=== PATIENT | female | born 1950 | race Caucasian/White ===

== ENCOUNTER → 2022-06-20 09:32 | Outpatient (CLI) | payer OTHER, SELFPAY ==
--- NOTE | 2022-06-20 09:35 | DI.RAD.S_ITS ---
PROCEDURE: XR HIP W PEL IF DONE BILAT 2V INDICATIONS: hip pain bilateral TECHNIQUE: AP pelvis with lateral view(s) of the right and left hip(s). COMPARISON: None. FINDINGS: Bones: No acute fractures or dislocations. Pelvic ring appears intact. No suspicious bony lesions. Severe right hip joint space loss with subchondral sclerosis and cystic change, spurring, and articular surface deformity. Severe joint space narrowing of the left hip also demonstrated. Soft tissues: The visualized bowel gas pattern is normal. No suspicious soft tissue calcifications. IMPRESSION: Severe degenerative changes of both hips, right worse than left. Dictated by: Marco Diaz M.D. on 06/20/2022 at 15:24 Approved by: Marco Diaz M.D. on 06/20/2022 at 15:29
--- NOTE | 2022-06-20 09:35 | DI.RAD.S_ITS ---
PROCEDURE: XR CHEST 2V INDICATIONS: COPD TECHNIQUE: 2 views of the chest were acquired. COMPARISON: [facility], CHEST 2 VIEW, 12/09/2012, 13:56. [facility], CHEST 1 VIEW, 09/10/2012, 5:52. FINDINGS: Lungs and pleura: The lungs appear hyperinflated, a finding that can be seen in the setting of COPD. Patchy opacity present at the right lung base and left mid lung. No pleural effusion or pneumothorax. Mediastinum: Mediastinal contours are normal. Heart size is normal. Bones and chest wall: No suspicious bony abnormalities. Soft tissues appear unremarkable. IMPRESSION: Nonspecific right basilar opacity and left mid lung opacities could represent pneumonia in the appropriate clinical setting, atelectasis is also possible. Dictated by: Marco Diaz M.D. on 06/20/2022 at 15:18 Approved by: Marco Diaz M.D. on 06/20/2022 at 15:24
[2022-06-20 10:07] LABS: Hematocrit 49.3 % (36-46); Hemoglobin 16.3 g/dL (12.0-16.0); Mean Corpuscular Hemoglobin 32.8 PG (26-34); Mean Corpuscular Volume 99.3 fL (80-100); Platelet Count 153 X10^3/uL (150-400); Red Blood Cell Count 4.96 X10^6/uL (4.0-5.2); Red Cell Distribution Width 14.3 % (11.6-14.8); White Blood Cell Count 5.4 X10^3/uL (4.5-11.0)
[2022-06-20 10:28] LABS: Alanine Aminotransferase 13 IU/L (<35); Albumin Globulin Ratio 1.2 (1.0-2.8); Alkaline Phosphatase 96 U/L (38-126); Aspartate Aminotransferase 23 IU/L (14-36); Bilirubin Total 0.3 mg/dL (0.2-1.3); Blood Urea Nitrogen 25 mg/dL (7-17); Calcium 8.7 mg/dL (8.4-10.2); Carbon Dioxide 34 mmol/L (22-32); Chloride 102 mmol/L (98-107); Cholesterol 174 mg/dL (140-199); Estimated Glomerular Filt Rate > 60 mL/min (>60); Globulin 3.3 g/dL (1.7-4.1); Glucose 98 mg/dL (80-110); HDL Cholesterol 43 mg/dL (40-60); HEMOLYSIS < 15 (0-50); LDL Cholesterol Calculated 110 mg/dL (<100); Potassium 4.5 mmol/L (3.4-5.1); Sodium 142 mmol/L (137-145); Total Protein 7.3 g/dL (6.3-8.2); Triglycerides 107 mg/dL (35-150)
[2022-06-20 11:24] LABS: TSH w/ Reflex to FT4 5.91 uIU/mL (0.47-4.68)
[2022-06-20 14:24] LABS: Free T4, Direct Thyroxine 0.99 ng/dL (0.78-2.19)
== END ==
PROVIDERS: Family Provider Internal Medicine; PCP Internal Medicine; Referring Provider Internal Medicine; Visit Provider Internal Medicine
DX: J44.9 Chronic obstructive pulmonary disease, unspecified (principal); E78.2 Mixed hyperlipidemia; M15.9 Polyosteoarthritis, unspecified
CPT/HCPCS: 36415; 71046; 73521; 80053; 80061; 84439; 84443; 85027

== ENCOUNTER → 2022-07-02 09:36 | Outpatient (CLI) | payer OTHER, SELFPAY ==
--- NOTE | 2022-07-02 08:53 | DI.DEXA.S_ITS ---
Indication: osteopenia; Referring Provider: TONY ESPARZA Study: Bone densitometry was performed. Exam Date: July 02, 2022 Accession number: [id number] Bone Density: Region BMD T-score Z-score Classification AP Spine(L1-L4) 0.959 -0.8 1.5 Normal Femoral Neck (Left) 0.595 -2.3 -0.3 Osteopenia Total Hip (Left) 0.708 -1.9 -0.2 Osteopenia Femoral Neck (Right) 0.705 -1.3 0.7 Osteopenia Total Hip (Right) 0.709 -1.9 -0.2 Osteopenia Total Hip Mean 0.709 -1.9 -0.2 Osteopenia World Health Organization criteria for BMD impression classify patients as: Normal (T-score at or above -1.0), Osteopenia (T-score between -1.0 and -2.5), or Osteoporosis (T-score at or below -2.5). 10-year Fracture Risk(1): Major Osteoporotic Fracture 15% Hip Fracture 5.8% Reported Risk Factors: [place] (), Neck BMD=0.595, BMI=27.4, smoking (1) FRAX(R) Version 3.08. Fracture probability calculated for an untreated patient. Fracture probability may be lower if the patient has received treatment. Previous Exams: -- Region Exam Age BMD T-score BMD Change BMD Change Date g/cm2 vs Baseline vs Previous -- AP Spine (L1-L4) 07/02/2022 72 0.959 -0.8 -0.016 (-1.6%)# -0.016 (-1.6%)# 01/15/2007 56 0.975 -0.7 Total Hip(Left) 07/02/2022 72 0.708 -1.9 -0.028 (-3.9%)# -0.028 (-3.9%)# 01/15/2007 56 0.737 -1.7 Total Hip(Right) 07/02/2022 72 0.709 -1.9 -0.023 (-3.2%)# -0.023 (-3.2%)# 01/15/2007 56 0.733 -1.7 -- *Denotes significance at 95% confidence level, LSC for AP Spine = 0.022 g/cm2, LSC for Total Hip = 0.027 g/cm2 # Denotes dissimilar scan types or analysis methods Impression: The patient has low bone mass, based on the Left Femoral Neck T-score. The patient has an estimated ten-year risk of hip fracture of 5.8% and an estimated ten-year risk of major fracture of 15%, based on the WHO FRAX algorithm. The patient has risk factors, including: smoking. No significant bone loss was observed. Discussion: BONE DENSITY IS LOW AT ONE OR MORE SKELETAL SITES. THE PATIENT'S BMD AND CLINICAL RISK FACTORS CONTRIBUTE TO THIS PATIENT'S INCREASED RISK OF FRACTURE. This patient's lowest T-score is low at one or more skeletal sites. It meets the World Health Organization's (WHO) criteria for ?low bone mass? (T-score between -1.0 and -2.5). The patient's 10-year risk of hip fracture as calculated by FRAX exceeds the threshold where pharmacological therapy is recommended by the National Osteoporosis Foundation (NOF). However, all treatment decisions require clinical judgment and consideration of individual patient factors, including patient preferences, comorbidities, previous drug use, risk factors not captured in the FRAX model (e.g., frailty, falls, vitamin D deficiency, increased bone turnover, interval significant decline in bone density) and possible under or overestimation of fracture risk by FRAX. The patient should follow a healthful lifestyle (good nutrition with adequate calcium and vitamin D, and appropriate weight-bearing exercise). Follow-Up: Consider a repeat BMD and Vertebral Fracture Assessment (VFA) exam in 2 years or sooner if medically necessary, to reassess this patient's status. Reported by: Heraclio CORONADO M.D. on 07/02/2022 9:01:00 AM.
== END ==
PROVIDERS: Family Provider Internal Medicine; PCP Internal Medicine; Referring Provider Internal Medicine; Visit Provider Internal Medicine
DX: Z78.0 Asymptomatic menopausal state (principal); M85.852 Other specified disorders of bone density and structure, left thigh
CPT/HCPCS: 77080

== ENCOUNTER → 2022-08-08 09:04 | Outpatient (CLI) | payer OTHER, SELFPAY ==
[2022-08-08 10:31] LABS: Add Manual Diff / Slide Review NO; Basophils Absolute Auto 100 /uL (0-100); Basophils Percent Auto 1.2 % (0-2); Eosinophils Absolute Auto 200 /uL (0-450); Eosinophils Percent Auto 2.1 % (2-4); Hematocrit 46.3 % (36-46); Hemoglobin 15.5 g/dL (12.0-16.0); Lymphocytes Absolute Auto 1100 /uL (1100-4500); Lymphocytes Percent Auto 13.9 % (25-40); Mean Corpuscular HGB Conc 33.5 % (30-36); Mean Corpuscular Hemoglobin 33.2 PG (26-34); Mean Corpuscular Volume 99.2 fL (80-100); Monocytes Absolute Auto 500 /uL (0-900); Monocytes Percent Auto 6.2 % (3-14); Neutrophils Absolute Auto 5800 /uL (1500-7000); Neutrophils Percent Auto 76.6 % (50-75); Platelet Count 173 X10^3/uL (150-400); Red Blood Cell Count 4.67 X10^6/uL (4.0-5.2); Red Cell Distribution Width 14.3 % (11.6-14.8); White Blood Cell Count 7.5 X10^3/uL (4.5-11.0)
[2022-08-08 10:34] LABS: Appearance Urine UA CLEAR; Bilirubin Urine UA NEGATIVE (NEGATIVE); Color Urine UA YELLOW; Glucose Urine UA NEGATIVE (Negative); Ketones Urine UA NEGATIVE (NEGATIVE); Leukocyte Esterase Urine UA NEGATIVE (NEGATIVE); Nitrite Urine UA NEGATIVE (Negative); Occult Blood Urine UA NEGATIVE (Negative); Protein Urine UA TRACE (Negative); Specific Gravity Urine UA >=1.030 (1.000-1.035); Urobilinogen Urine UA 0.2 E.U./dL (0.2)
[2022-08-08 10:38] LABS: pH Urine UA 5.5 (4.5-8.0)
[2022-08-08 10:41] LABS: RBC Urine None Seen (0-5/HPF); WBC Urine None Seen (0-5/HPF)
[2022-08-08 10:42] LABS: Bacteria Urine None Seen; Culture Indicated Urine Cult Not Indicated
[2022-08-08 11:20] LABS: BUN Creatinine Ratio 49.1 (6-22); Blood Urea Nitrogen 27 mg/dL (7-17); Calcium 8.9 mg/dL (8.4-10.2); Carbon Dioxide 34 mmol/L (22-32); Chloride 100 mmol/L (98-107); Estimated Glomerular Filt Rate > 60 mL/min (>60); Glucose 86 mg/dL (80-110); HEMOLYSIS < 15 (0-50); Potassium 4.1 mmol/L (3.4-5.1); Sodium 139 mmol/L (137-145)
[2022-08-09 06:10] LABS: Labcorp Hemoglobin (Hb) A1c 5.5 % (4.8-5.6)
== END ==
PROVIDERS: Family Provider Internal Medicine; PCP Internal Medicine; Referring Provider Orthopaedic Surgery; Visit Provider Orthopaedic Surgery
DX: Z01.818 Encounter for other preprocedural examination (principal); R73.9 Hyperglycemia, unspecified; Z01.812 Encounter for preprocedural laboratory examination; N39.0 Urinary tract infection, site not specified
CPT/HCPCS: 36415; 80048; 81001; 83036; 85025; 93005; 93010

== ENCOUNTER 2022-11-06 06:27 | Day surgery (SDC) | payer OTHER, SELFPAY ==
[2022-10-29 13:52] VITALS: BMI 27.7
[2022-11-06] VITALS (8 sets, daily range): BP systolic 104–148; BP diastolic 53–74; PULSE 66–96; RESP 10–18; TEMP 35.8–37.1; O2SAT 88–98; BMI 27.7
--- NOTE | 2022-11-06 | DI.RAD.S_ITS ---
PROCEDURE: XR HIP W PEL IF DONE RT 2V INDICATIONS: POST OP TECHNIQUE: AP pelvis and lateral view of the right hip acquired. COMPARISON: [facility], [facility], XR HIP W PEL IF DONE RT 2V, 11/06/2022, 9:13. FINDINGS: Bones: Patient is status post right hip arthroplasty, with hardware components in expected positions. The hip joint appears congruent. The visualized bony structures appear intact. Soft tissues: Overlying postoperative changes are noted. No suspicious soft tissue densities. IMPRESSION: Postop changes from right total hip arthroplasty with anatomic right hip alignment. Dictated by: Jose Juan Umana M.D. on 11/06/2022 at 11:35 Approved by: Jose Juan Umana M.D. on 11/06/2022 at 11:35
--- NOTE | 2022-11-06 06:00 | DI.RAD.S_ITS ---
PROCEDURE: XR HIP W PEL IF DONE RT 2V INDICATIONS: MARI TECHNIQUE: 2 view(s) of the hip acquired. COMPARISON: [facility], CR, XR HIP W PEL IF DONE RT 2V, 11/06/2022, 10:28. FINDINGS: Bones: Patient is status post right hip arthroplasty, with hardware components in expected positions. The hip joint appears congruent. The visualized bony structures appear intact. Soft tissues: Overlying postoperative changes are noted. No suspicious soft tissue densities. IMPRESSION: Expected postsurgical change for right hip arthroplasty. Dictated by: Precious Low MD, PhD on 11/06/2022 at 13:10 Approved by: Precious Low MD, PhD on 11/06/2022 at 13:11
[2022-11-06] MEDS: VANCOMYCIN 1,000 MG/200 ML PIGGYBACK 200 MG IV (06:40)
[2022-11-06] MEDS: CELECOXIB 200 MG CAPSULE PO (06:46)
[2022-11-06] MEDS: LACTATED RINGERS 1,000 ML 42 ML IV (06:46)
[2022-11-06] MEDS: ACETAMINOPHEN 325 MG TABLET 975 MG PO (06:47)
[2022-11-06] MEDS: ALBUTEROL/IPRATROPIUM 3 ML AMPUL INH (07:10)
--- NOTE | 2022-11-06 07:26 | SUR.OPER ---
Supine on padded Nancy table with bilateral legs secured in padded positioning boots and suspended in positioning spars, operative leg in traction per surgeon. Head on one pillow. Arm on non-operative side secured on padded armboard <90 degrees abduction. Arm on operative side padded and resting across chest then secured with tape over sheet. Padded perineal post in place per surgeon.
--- NOTE | 2022-11-06 07:49 | PM.PREOP ---
Pre-operative Note Interval Note History & Physical reviewed/Exam performed by Physician: Yes Changes to H&P: No
--- NOTE | 2022-11-06 07:50 | PM.OP.1 ---
Operative Date/Time/Diagnoses Date of procedure: 11/06/22 Time of procedure: 08:00 Pre-op diagnosis: right hip OA Post-op diagnosis: same Procedure & Clinicians Procedure: Right total hip arthroplasty anterior approach Same procedure as scheduled: Yes Indications: The patient has had progressively worsening right hip pain with radiographic changes consistent with arthritis. Non-operative management has failed and the patient has requested total hip replacement. The risks, benefits and alternatives to surgery were discussed with the patient prior to proceeding. Risks discussed included, but were not limited to, failure to relieve pain, leg length discrepancy, dislocation, stiffness, infection, nerve damage, deep venous thrombosis, pulmonary embolism, stroke, coma, heart attack, permanent paralysis and , as well as the potential need for eventual revision of the prosthetic. Surgeon: Niki [employer] Chief Engineer: Yanick Ashley Anesthesia Type: Spinal and Sedation Operative Notes Findings: Severe right hip osteoarthritis, soft bone, adequate stability Closure Type: primary Specimen(s): none sent Prosthetic devices, grafts, tissues, transplants, or devices: Allan and nephew polar size 3 stem, size 50 R3 cup, neutral poly liner, 32 x -3 Oxinium head, one 6.5 mm screw Estimated Blood Loss (mL): 250 Blood products transfused: none Procedure in detail: The patient was brought to the operating room. Patient was carefully positioned in the supine position. Time-out was performed and antibiotics were given. Anesthesia was induced. She was positioned in the on the table in order to allow hyperextension of the hip. The right lower extremity was prepped and draped in a standard sterile fashion. An anterior right hip incision was made 1 fingerbreadth lateral to the anterior superior iliac spine and extended distally towards the greater trochanter. Dissection was carried out through skin and subcutaneous tissues. Superficial hemostasis was achieved. The fascia over the tensor fascia gamal was defined and incised with a knife. Two Allis clamps were used to grasp the fascia. Tensor fascia gamal was retracted laterally. A gelpi retractor was placed. Dissection was carried out down along the neck. The circumflex vessels were carefully identified and cauterized with the Aqua Mantis. A PA was used throughout the procedure and was important for adequate retraction and safe implantation of the components as well as adequate hemostasis. There was good visualization of the femoral neck. A Cobra was placed superior to the neck and the gluteus fibers were carefully stripped from that superior aspect of the capsule. A 2nd retractor was placed along the inferior aspect of the neck. The rectus insertion along the capsule was partially released. A 3rd retractor that was then gently placed over the rim of the acetabulum under the rectus. Capsule was carefully incised and released from the intertrochanteric line circumferentially superior to the mid sagittal line and inferiorly to the mid sagittal line until the lesser trochanter was palpable. A tag stitch was placed both in the superior and inferior limb of the capsular insertion. There was some fasciculation of the vastus. Along the acetabulum capsule was also released up to the mid sagittal 12:00 position. A portion of the labrum was resected. A saw was used to perform an osteotomy at the level of the intertrochanteric line and the junction of the superior femoral neck leaving approximately 1 finger breath of residual inferior neck above the lesser trochanter. A 2nd cut was made along the femoral neck at the base of the head and a napkin ring of neck was removed. Corkscrew was placed in the femoral head and the head was removed without difficulty. Retractors were then repositioned around the acetabulum. Residual labrum was resected and additional osteophytes were removed. A reamer that was 4 mm below the templated size was placed by hand in the acetabulum and it was reamed to centralize the acetabulum. It was then reamed up to 2 under the templated size and fluoroscopy was brought in to confirm the position of the reaming and depth of reaming. I reamed 1 under the anticipated size. A trial cup was placed and noted that it was appropriately sized and fluoroscopy confirmed position and depth. The component was open and inserted without difficulty fluoroscopic imaging was used to confirm that the cup had been adequately seated and was well positioned. It was further stabilized with a single screw. Neutral poly liner was placed. The cup was tested and noted to be stable. Attention was then directed to the femur. The femur was gently hyperextended additional capsular release was performed as needed in order to allow adequate visualization of the proximal femur with elevation of the femur. Patient was placed in a hyperextended slightly adducted position with maximum external rotation. Box osteotome was used to check for any residual neck as well as sclerotic bone along the trochanter. [place] pepper was placed in the femur. Additional broaching was performed. Canal finder was used to determine the alignment of the canal and position. Size 1 broach was placed. The canal was then appropriately broached up to the templated size as long as there was adequate stability of the broach and serial advancement of the broach without excessive impingement. Specific attention was directed at avoiding varus attempting to direct the distal aspect of the broach more anteriorly and avoiding excessive anteversion. Trial reduction showed acceptable range of motion, good stability, no posterior impingement, adventism of leg length and appropriate lateral shuck. I also hyperflexed the hip and checked that there was no impingement anteriorly and there was good stability with flexion, adduction and internal rotation. Marcaine and Exparel were injected. The stem was placed without difficulty. Repeat trial reduction and x-ray showed acceptable overall position, length, and no evidence of the femoral fracture. Final head was placed. Wound was meticulously irrigated with normal saline. The hip was reduced and additional Exparel and Marcaine were injected. The capsule was closed with interrupted nonabsorbable sutures. The fascia of the tensor was closed with interrupted and running Vicryl. No drain was placed. Any tensor fascia gamal muscle that appeared to be contused or injured which was a minimal amount was carefully resected. Capsule around the tensor was injected with Exparel and Marcaine. The skin was closed with barbed stitches for the subcutaneous tissue and skin. We also used surgical glue. The wound was dressed sterilely. Brief Betadine soak was also used and was meticulously irrigated with normal saline. Patient was transferred to recovery room in satisfactory condition. Complications: none Post-operative Condition: stable Disposition: Acute Care Plan for aftercare: The patient will be maintained on a standard total hip replacement protocol with weight bearing as tolerated and anterior hip precautions. The patient will receive Aspirin and sequential compression devices for DVT prophylaxis. The patient will be discharged home when safe for the home environment.
[2022-11-06] MEDS: CEFAZOLIN 2 GM/100 ML PREMIX 100 ML IV ×2 (08:14→17:22)
[2022-11-06] MEDS: BUPIVACAINE 0.25% (PF) 60 ML, EPINEPHrine 0.3 MG INJ (08:41)
[2022-11-06] MEDS: BUPIVACAINE LIPOSOME 266 MG/20 ML VIAL INJ (10:10)
[2022-11-06] MEDS: ACETAMINOPHEN 325 MG TABLET 650 MG PO ×2 (12:12→17:24)
[2022-11-06] MEDS: IBUPROFEN 400 MG TABLET PO ×2 (12:12→15:08)
[2022-11-06] MEDS: LACTATED RINGERS 1,000 ML 100 ML IV (12:13)
--- NOTE | 2022-11-06 17:27 | OT.IP.EVAL ---
Current Diagnoses Unilateral primary osteoarthritis, right hip (11/06/22) Surgery Performed Operation Date: 11/06/22 07:45 Actual Procedures p RIGHT Total Hip Arthroplasty/Anterior Approach(Right) - Niki Allan MD Past Medical History (Last Updated 10/29/22 @ 14:15 by Natalia Guallpa, RN) Acne (~1964) Asthma Cataracts, bilateral (~2008) Chicken pox (~1959) COPD (chronic obstructive pulmonary disease) (~1988) Depression (~1973) Hearing loss History of colonic polyps History of COVID-19 (02/2022) Mixed hyperlipidemia Osteopenia Primary osteoarthritis involving multiple joints Tobacco use disorder Surgical History (Last Updated 10/29/22 @ 14:05 by Natalia Guallpa RN) Anesthesia History of section History of cholecystectomy (~2009) Hx of bilateral cataract extraction Occupational Therapy Inpatient Evaluation/Re-Eval M1 PT/OT-IP Prior Functional Status Start: 11/06/22 17:19 Freq: NEEDED Status: Active Protocol: Document 11/06/22 16:45 DCW (Rec: 11/06/22 17:38 DCW [id number]) Medical Review Prior Functional Status Medical History Reviewed Yes Communication WNL Mobility and Gait 4WW/SPC as needed secondary to hip pain and instability Social History Household Members family Living Arrangements House Number of Floors (Floors) One Floor Number of Stairs To Enter/Railing? 2 GENE, unilateral railing being installed by daughter Home Equipment Four Wheel Walker,Straight Cane M1 PT/OT-IP Prior Functional Status Start: 11/06/22 17:27 Freq: NEEDED Status: Active Protocol: Document 11/06/22 17:28 [facility] (Rec: 11/06/22 17:42 [facility] [id number]) Medical Review Prior Functional Status Communication Independent Mobility and Gait Pt states started to use a SPC recently and only could walk 3 minutes at [facility] with a cart before needing to sit down. Activities of Daily Living and IADL's Pt having pain with ADL needs. Social History Household Members family Living Arrangements House Number of Stairs To Enter/Railing? 2 small steps to get into the house Home Environment Standard Height Toilet Home Equipment Front Wheel Walker,Four Wheel Walker,Bedside Commode,Shower Seat with Backrest Additional Social History Comment Pt lives with her daughter who will be able to provide pt with assist for all needs. M2 OT-IP Current Condition Start: 11/06/22 17:27 Freq: Status: Active Protocol: Document 11/06/22 17:28 [facility] (Rec: 11/06/22 17:42 [facility] [id number]) Occupational Therapy Current Condition Current Condition Evaluation Date 11/06/22 Treatment Diagnosis S/p R MARI Diagnosis Onset Date 11/06/22 Post Operative Precautions Anterior Hip Precautions No Hip Extension,No Hip External Rotation M3 OT- IP Subjective and Pain Start: 11/06/22 17:27 Freq: Status: Active Protocol: Document 11/06/22 17:28 [facility] (Rec: 11/06/22 17:42 [facility] [id number]) OT- Subjective Occupational Therapy Visit Type Type Initial Evaluation Visit Start Time 17:13 Visit Stop Time 17:28 Total Visit Minutes 15 Occupational Therapy Visit Comments Patient Comments Pt in the recliner and agreed to work with OT. Pt's daughter came in at the end of the session. Patient/Caregiver Goals To go home OT Pain Assessment Pain When Pain Assessed At Rest Pain Present Pain Present Denied Pain M4 OT- IP ADL's Start: 11/06/22 17:27 Freq: Status: Active Protocol: Document 11/06/22 17:28 [facility] (Rec: 11/06/22 17:42 [facility] [id number]) OT UXE-Vlrs-Onpkgth Comments OT Self-Feeding Comments NOt at meal time OT ADL-Grooming Comments OT Grooming Comments Not performed OT ADL-Oral Care Comments Oral Care Comments Not performed. OT ADL-Dressing General Eval Lower Body Dressing Ability Maximum Assistance Comments OT Dressing Comments At this time pt will need assist for socks and shoes. Pt states to wear slip on shoes. Reminded pt not to cross her right leg over in order to silvio LB dressing clothing in order to best follow her anterior precautions. OT ADL-Toileting Comments OT Toileting Comments Pt states has already been to the toilet 3 times. Pt's daughter aware that pt will need assist. OT ADL-Bathing Comments OT Bathing Comments Pt states just wanting to sponge off at home for now. M5 OT- IP IADL's Start: 11/06/22 17:27 Freq: Status: Active Protocol: Document 11/06/22 17:28 [facility] (Rec: 11/06/22 17:42 [facility] [id number]) OT-Instrumental Activities of Daily Living Deficits IADL Deficits Identified Deficits Home Safety Awareness Awareness of Need for Assistance at Home Good Awareness Home Safety Comments Pt has supportive family to be able to assist with all her needs. Meal Preparation Meal Preparation Caregiver Provides Assist Dormitory Counselor Dormitory Counselor Caregiver Provides Assist M6 OT- IP Functional Cognition Start: 11/06/22 17:27 Freq: Status: Active Protocol: Document 11/06/22 17:28 [facility] (Rec: 11/06/22 17:42 [facility] [id number]) Cognitive Factors Limiting Selfcare Function Cognitive Ability Level of Alertness Alert Patient Orientation Name,Place,Situation Attention Span Ability Capable of Focused Attention, Capable of Sustained Attention Ability to Follow Commands Able to Follow Multi-Step Commands Safety Awareness Decreased Recall of Precautions Cognitive Comments Cognitive Assessment Comments Pt a needing cues to verbally state her precautions when moving forwards with the FWW and backwards to prevent from hyperextension of her right hip. Pt's daughter having good understanding for all pt's ADl and mobility needs. OT- Vision and Hearing OT- Hearing Assessment OT- Hearing Assessment Hearing Impaired M7 OT- IP Mobility and Balance Start: 11/06/22 17:27 Freq: Status: Active Protocol: Document 11/06/22 17:28 [facility] (Rec: 11/06/22 17:42 [facility] [id number]) OT-Transfer Assessment Comments Mobility Comments Pt just about to eat dinner, see PT note for mobility needs . OT- Balance Assessment Sitting Balance and Reactions Static Sitting Balance Ability Normal Dynamic Sitting Balance Ability Good M9 OT- IP Assessment and Plan Start: 11/06/22 17:27 Freq: Status: Active Protocol: Document 11/06/22 17:28 [facility] (Rec: 11/06/22 17:42 [facility] [id number]) OT Summary Assessment and Plan Potential Rehabilitation Potential Good Analytic Complexity at Evaluation Low Summary OT Impairments Functional Mobility,Dressing, Toileting,Bathing,Toilet Transfers,Shower Transfers Progress Towards Goals Progressing Toward Goals Assessment Summary Pt low complexity and main barrier are will now need some help with dressing, toileting and bathing needs and cues to remind for which leg goes first when moving forwards and backwards. Pt has all equipment needs at home. OT suggested pt get briefs/pads so not having to gross to the bathroom. Pt to go home with assist today. Goals Dressing Goal Independent Toileting Goal Independent Bathing Goal Independent Toilet Transfer Goal Independent Shower Transfer Goal Independent Days to Meet Goals 5 Frequency of Treatment Frequency Of Treatment Once a Day Treatment Plan OT Treatment Plan ADL Training,Functional Mobility,Patient/Family Education,Discharge Planning Discharge Recommendations OT Discharge Recommendations Home with Assistance, Outpatient PT Transportation Needs at Discharge Private Vehicle
--- NOTE | 2022-11-06 17:40 | PT.IIE ---
Current Diagnoses Unilateral primary osteoarthritis, right hip (11/06/22) Surgery Performed Operation Date: 11/06/22 07:45 Actual Procedures p RIGHT Total Hip Arthroplasty/Anterior Approach(Right) - Niki Allan MD Surgical History (Last Updated 10/29/22 @ 14:05 by Natalia Guallpa, RN) Anesthesia History of section History of cholecystectomy (~2009) Hx of bilateral cataract extraction Medical History (Last Updated 10/29/22 @ 14:15 by Natalia Guallpa RN) Acne (~1964) Asthma Cataracts, bilateral (~2008) Chicken pox (~1959) COPD (chronic obstructive pulmonary disease) (~1988) Depression (~1973) Hearing loss History of colonic polyps History of COVID-19 (02/2022) Mixed hyperlipidemia Osteopenia Primary osteoarthritis involving multiple joints Tobacco use disorder Physical Therapy Inpatient Evaluation/Re-Eval M1 PT/OT-IP Prior Functional Status Start: 11/06/22 17:19 Freq: NEEDED Status: Active Protocol: Document 11/06/22 16:45 DCW (Rec: 11/06/22 17:38 DC [id number]) Medical Review Prior Functional Status Medical History Reviewed Yes Communication WNL Mobility and Gait 4WW/SPC as needed secondary to hip pain and instability Social History Household Members family Living Arrangements House Number of Floors (Floors) One Floor Number of Stairs To Enter/Railing? 2 GENE, unilateral railing being installed by daughter Home Equipment Four Wheel Walker,Straight Cane M2 PT-IP Current Condition Start: 11/06/22 17:19 Freq: NEEDED Status: Active Protocol: Document 11/06/22 16:45 DCW (Rec: 11/06/22 17:38 DCW [id number]) Physical Therapy Current Condition Current Condition Evaluation Date 11/06/22 Treatment Diagnosis R anterior MARI Onset Date 11/06/22 M3 PT-IP Subjective Start: 11/06/22 17:19 Freq: NEEDED Status: Active Protocol: Document 11/06/22 16:45 DCW (Rec: 11/06/22 17:38 DCW [id number]) Subjective Physical Therapy Visit Type Type Initial Evaluation Visit Start Time 16:45 Visit Stop Time 17:15 Total Visit Minutes 30 Notes Pt returning from restroom to recliner upon therapist entering. Pt anxious to get home. Reports her hip feels good, admits that her IV site bothers her more than her hip. Wants to try stairs so she can get to go home. Notes that she had a prehab appointment, and forgot a lot of what they told me. Physical Therapy Visit Comments Patient Comments I put this off for so long, and I already feel so much better. I can't wait to get the next one done. Therapy Pain Assessment Pain When Pain Assessed During Weight Bearing Pain Present Pain Present Pain Reported Location right hip Intensity 1 Scale Used Numeric (0 - 10) M4 PT-IP Mobility and Gait Start: 11/06/22 17:19 Freq: NEEDED Status: Active Protocol: Document 11/06/22 16:45 DCW (Rec: 11/06/22 17:38 DC [id number]) PT-Transfer Assessment Sit to and From Stand Sit to and from Stand Standby Assistance Equipment Transfer Assistive Device Bed Rail,Front Wheeled Walker Comments Mobility Comments Verbal cues for hand placement for sit->stand Gait Assessment Gait Gait Assistance Required: Standby Assistance Distance (Feet) 150 Assistive Devices Assistive Device Gait Belt,Front Wheeled Walker Gait Deviations General Gait Pattern Antalgic,Decreased Stride Length,Decreased Feet Clearance Comments Gait Comments Pt ambulated in hallway SBA 75 ' using FWW, then performed stair trial, and then returned to room 75'. Stair Climbing Assessment Evaluation Level of Assist On Stairs Standby Assistance Devices Stair Climbing Assistive Devices Right Railing Technique/Endurance Stair Climbing Direction Ascend and Descend Stair Climbing Technique Step to Step Number of Steps Climbed 3 Query Text: Stair Climbing Set # Repetitions (reps) 2 M5 PT-IP Objective Assessments Start: 11/06/22 17:19 Freq: NEEDED Status: Active Protocol: Document 11/06/22 16:45 DCW (Rec: 11/06/22 17:38 DC [id number]) Orientation Orientation/Cognition Level of Alertness Alert Orientation Name,Birthday,Month,Date,Year, Day of Week,Place,Situation Language Function Ability No Deficits Noted Safety Awareness Understands Safety Issues Memory Description No Deficits Noted Gross Range of Motion Lower Extremity ROM Assessment Right Impaired Impairments Limited ROM due to anterior hip precautions Strength Lower Extremity Strength Assessment Right Impaired Comments Strength Comments Right hip flexion through limited ROM secondary to pain and post-op weakness, good quad contraction M6 PT-IP Treatment Start: 11/06/22 17:19 Freq: NEEDED Status: Active Protocol: Document 11/06/22 16:45 DCW (Rec: 11/06/22 17:38 DCW [id number]) Physical Therapy Treatment Exercises Exercises Ankle Pumps,Gluteal Sets,Quad Sets,Heel Slides Education Education Provided Precautions,Post-Op Packet, Safety M7 PT-IP Assessment and Plan Start: 11/06/22 17:19 Freq: NEEDED Status: Active Protocol: Document 11/06/22 16:45 DCW (Rec: 11/06/22 17:38 DCW [id number]) PT Summary Assessment and Plan Potential Rehabilitation Potential Excellent Status of Condition at Evaluation Stable Summary Impairments Pain,ROM,Strength,Bed Mobility ,Transfers,Gait Assessment Summary Pt is doing very well on day of surgery secondary to right anterior MARI. Pt able to repeat hip precautions back to therapist, and responded well to education regarding hand placement and sequencing for sit->stand, was able to perform stand->sit without any verbal cueing. Pt able to ambulate SBA /c FWW 150' in hallway, and demonstrated appropriate technique with ascending/descending stairs. Showed good retention of post- op HEP and anterior hip precautions. Pt appropriate from a PT standpoint to discharge home at this time, with planned follow-up with out-patient physical therapy. Frequency of Treatment Frequency Of Treatment Discharge Precautions Anterior Hip Precautions No Hip Extension,No Hip External Rotation Weight Bearing Status Weight Bearing Status Weight Bear as Tolerated Recommendations To Nursing Amount of Assist Needed Standby Assistance Discharge Recommendations PT Discharge Recommendations Home,Outpatient PT Transportation Needs at Discharge Private Vehicle
--- NOTE | 2022-11-06 17:58 | PC.NURSE ---
Addendum entered by Mando Lee R.N. 11/06/22 19:08: Pt escorted to car via w/c, did very well to get into the car. Original Note: Pt progressing very well, cleared by PT. Understanding training and hip precautions well. Will d/c after abx finishes. Surgical site intact.
== END 2022-11-06 18:30 | disposition home or self-care (01) ==
LOC: OR 06:29 → AC 06:29
PROVIDERS: Family Provider Internal Medicine; PCP Internal Medicine; Referring Provider Orthopaedic Surgery; Visit Provider Orthopaedic Surgery
PROC: (CPT 27130; principal; 2022-11-06 07:45)
DX: M16.11 Unilateral primary osteoarthritis, right hip (principal)
CPT/HCPCS: 27130; 73502; 76000; 97110; 97161; 97165; C1776; A9270; C9290; J0171; J0690; J2250; J2405; J2704

== ENCOUNTER 2024-01-19 10:10 | Inpatient (IN) | payer OTHER, SELFPAY ==
[2022-11-06 06:42] VITALS: BMI 27.7
[2024-01-19 10:21] VITALS: BP 137/68; PULSE 91; RESP 24; TEMP 36.9; O2SAT 83; BMI 29.2
[2024-01-19 10:24] VITALS: PULSE 86; RESP 36; O2SAT 92
--- NOTE | 2024-01-19 10:25 | DI.RAD.S_ITS ---
PROCEDURE: XR CHEST 1V INDICATIONS: Shortness of breath TECHNIQUE: One view of the chest was acquired. COMPARISON: [facility], CR, XR CHEST 2V, 06/20/2022, 9:34. FINDINGS: Surgical changes and devices: None. Lungs and pleura: Focal dense opacity can be seen at the left lung base. No large pneumothorax is seen. Generalized interstitial prominence can be seen. Mediastinum: The cardiac contours are obscured, yet are believed to be moderately enlarged. Bones and chest wall: No suspicious bony lesions. Age-appropriate bony degenerative changes are seen. Overlying soft tissues appear unremarkable. IMPRESSION: Opacity at the left lung base, which is attributed to a moderately sized left-sided pleural effusion. Likely overlying atelectasis can be seen. There is believed to be cardiomegaly with interstitial prominence. Please consider CHF. Dictated by: Андрей Singletary M.D. on 01/19/2024 at 9:54 Approved by: Андрей Singletary M.D. on 01/19/2024 at 9:55
--- NOTE | 2024-01-19 10:27 | EKG_ITS ---
[id number] [address] Test Date: 2024-01-19 Pat Name: Amelia Mason Department: Room: Gender: Female Nursing Home Aide: MOLLY : 1950 Requested By: Order Number: [id number] Reading MD: Thomas Goodwin MD Measurements Intervals [place] Rate: 86 P: 13 SD: 156 QRS: -66 QRSD: 80 T: -27 QT: 354 QTc: 423 Interpretive Statements Normal sinus rhythm Low voltage QRS Left anterior fascicular block Cannot rule out Inferior infarct (masked by fascicular block?) , age undetermined Cannot rule out Anterior infarct , age undetermined ST & T wave abnormality, consider lateral ischemia Electronically Signed On 01-20-2024 7:54:02 PDT by Thomas Goodwin MD
--- NOTE | 2024-01-19 10:27 | ED.SOB ---
HPI - SOB/Dyspnea General Chief Complaint: Shortness of Breath/Dyspnea Stated Complaint: SOB and swollen ankles Time Seen by Provider: 01/19/24 10:17 Source: patient, RN notes reviewed and old records reviewed Mode of arrival: Family Vehicle Limitations: no limitations History of Present Illness HPI Narrative: 73-year-old female history of COPD, dyslipidemia who presents with complaint of increasing dyspnea for the past several weeks. Patient notes that increasing dyspnea with exertion, she denies any chest pain or pressure she was noted that is very difficult to get activities done. She states no orthopnea, she states no cough cold or congestion. No fevers or chills. Patient has not had any nausea or vomiting no issues with bowel movements or urination. No black or bloody stools. She does note some swelling in her ankles that is new over the past week. She has been diagnosed with COPD in the past she has not inhaler that she uses occasionally but not regularly, she has been prescribed medications for dyslipidemia and aspirin but does not take them regularly. Patient states she has a history of hip repair over a year ago, quit smoking tobacco about a week ago. Denies any alcohol or recreational drugs. Was referred for pulmonary rehab but has not started it. Dr. Moore is her primary care physician. She lives with her daughter who notes that she has had increasing work of breathing over the past week or 2 even at although patient does not appreciate any. Patient also notes has not been told her O2 is low in the past but last visit where it was checked was July of 2023. Related Data Home oxygen amount: none Home Medications Medication Instructions Recorded Confirmed aspirin 325 mg tablet 325 mg PO Q4-6H PRN pain 09/12/22 07/30/23 ibuprofen 200 mg capsule 400 mg PO Q4H PRN Pain 10/29/22 07/30/23 Previous Rx's Medication Instructions Recorded albuterol sulfate 90 mcg/actuation 2 puff inhalation Q6H PRN 06/14/22 aerosol inhaler shortness of breath or wheezing #8.5 grams rosuvastatin 10 mg tablet 10 mg PO DAILY #90 tabs 07/30/23 Allergies Allergy/AdvReac Type Severity Reaction Status Date / Time nickel [NICKEL] Allergy Severe Rash Verified 07/30/23 07:56 Review of Systems Review of Systems ROS Unobtainable: All systems reviewed & are unremarkable except as noted in HPI and below Patient History Medical History History of COVID-19 (02/2022) Osteopenia Hearing loss Acne (~1964) Asthma Depression (~1973) Chicken pox (~1959) Cataracts, bilateral (~2008) Primary osteoarthritis involving multiple joints History of colonic polyps Tobacco use disorder COPD (chronic obstructive pulmonary disease) (~1988) Mixed hyperlipidemia Surgical History Hx of bilateral cataract extraction Anesthesia History of cholecystectomy (~2009) History of section Family History Father History of heart disease Mother History of heart disease Sister Overdose Grandfather History of heart disease Grandmother Alzheimer's disease Social History household members: family Smoking Status: Current some day smoker alcohol intake: former Smoking Status: Current some day smoker Substance Use Type: other Exam Narrative Exam Narrative: GENERAL: Alert and oriented x three, elderly female in mild distress HEENT: Head normocephalic, atraumatic, EOMI, pupils reactive, face symmetric, moist mucous membranes NECK: Supple, full range of motion CARDIOVASCULAR: Regular rate and rhythm without murmurs, rubs or gallops. No JVD. Patient has 2+ pitting edema bilateral lower extremities. RESPIRATORY: Breath sounds equal bilaterally, no wheezes, no rhonchi. Patient does have some crackles at bases. Patient does have some tachypnea but no other significant work of breathing. She can talk in full sentences but has been placed on O2 which she is finding it very helpful. ABDOMEN: Soft, nontender. Normoactive bowel sounds all 4 quadrants. No guarding or rebound, rigidity, no mass : No CVA tenderness EXTREMITIES: Normal range of motion, no clubbing. 2+ pulses bilateral lower extremities. Neurovascularly intact NEUROLOGICAL: Cranial nerves II through XII grossly intact. Moving all extremities SKIN: Warm, dry, no petechiae, no rashes or lesions. Initial Vital Signs Initial Vital Signs: Vital Signs Temperature 98.4 F 01/19/24 10:21 Pulse Rate 91 H 01/19/24 10:21 Respiratory Rate 24 01/19/24 10:21 Blood Pressure 137/68 01/19/24 10:21 Pulse Oximetry 83 L 01/19/24 10:21 Oxygen Delivery Method Room Air 01/19/24 10:21 Course Orders Ordered: ED Orders 01/19/24 10:20 Complete Blood Count AUTO DIFF Stat Comprehensive Metabolic Panel Stat Lactate (Lactic Acid) Stat NT-proBNP (BNP-Adult 18+) Stat Prothrombin Time INR Stat Troponin I Stat 01/19/24 10:25 XR chest 1V Stat EKG-12 Lead Stat Measure peak expiratory flow ONCE RT Consult Eval and Treat NOW 01/19/24 11:19 Urine Culture Stat Urine Microscopic Stat Acetaminophen (Acetaminophen 325 Mg Tablet) 650 mg PO Q6H PRN PRN Reason: Fever/Mild Pain (1-3) Albuterol/Ipratropium (Albuterol/Ipratropium 3 Ml Ampul) 3 ml INH Q1H PRN PRN Reason: Shortness Of Breath Last Admin: 01/19/24 10:37 Dose: 3 ml Documented By: SAT Enoxaparin Sodium (Enoxaparin 40 Mg/0.4 Ml Syringe) 40 mg SUBCUT DAILY NILAM Naloxone HCl (Naloxone 0.4 Mg/Ml Vial) 0.2 mg IV Q2MIN PRN PRN Reason: Opiate Reversal Discontinued Medications Furosemide (Furosemide 40 Mg/4 Ml Vial) 40 mg IV NOW ONE Stop: 01/19/24 10:47 Last Admin: 01/19/24 10:54 Dose: 40 mg Documented By: RB Vital Signs Vital signs: Vital Signs - 8 hr 01/19/24 10:21 01/19/24 10:24 01/19/24 10:46 Temperature 98.4 F Pulse Rate 91 H 86 86 Respiratory Rate 24 36 H Blood Pressure 137/68 Pulse Oximetry 83 L 92 94 Oxygen Delivery Method Room Air Nasal Cannula Nasal Cannula Oxygen Flow Rate 2 1.5 MDM - SOB/Dyspnea Lab Data 01/19/24 10:20 01/19/24 10:20 Labs: Lab Results 01/19/24 01/19/24 Range/Units 10:20 11:19 WBC 9.9 (4.5-11.0) X10^3/uL RBC 4.69 (4.0-5.2) X10^6/uL Hgb 14.6 (12.0-16.0) g/dL Hct 47.0 H (36-46) % MCV 100.2 H (80-100) fL MCH 31.2 (26-34) PG MCHC 31.1 (30-36) % RDW 16.3 H (11.6-14.8) % Plt Count 208 (150-400) X10^3/uL Neut % (Auto) 81.6 H (50-75) % Lymph % (Auto) 8.2 L (25-40) % [place] % (Auto) 8.7 (3-14) % Eos % (Auto) 0.9 L (2-4) % Baso % (Auto) 0.6 (0-2) % Neut # (Auto) 8100 H (3132-1668) /uL Lymph # (Auto) 800 L (9685-2667) /uL [place] # (Auto) 900 (0-900) /uL Eos # (Auto) 100 (0-450) /uL Baso # (Auto) 100 (0-100) /uL PT 11.8 (9.4-12.5) SECONDS INR 1.0 (0.9-1.3) Sodium 138 (137-145) mmol/L Potassium 4.0 (3.4-5.1) mmol/L Chloride 95 L (98-107) mmol/L Carbon Dioxide 36 H (22-32) mmol/L BUN 17 (7-17) mg/dL Creatinine 0.61 (0.52-1.04) mg/dL Estimated GFR > 60 (>60) mL/min BUN/Creatinine Ratio 27.9 H (6-22) Glucose 102 (80-110) mg/dL Lactate 1.9 (0.7-2.1) mmol/L Calcium 8.4 (8.4-10.2) mg/dL Total Bilirubin 0.4 (0.2-1.3) mg/dL AST 24 (14-36) IU/L ALT 17 (<35) IU/L Alkaline Phosphatase 95 (38-126) U/L Troponin I 0.012 (0.01-0.034) ng/mL NT-Pro-B Natriuret Pep 5280 H (<125) pg/mL Total Protein 6.5 (6.3-8.2) g/dL Albumin 3.6 (3.5-5.0) g/dL Globulin 2.9 (1.7-4.1) g/dL Albumin/Globulin Ratio 1.2 (1.0-2.8) Urine RBC None seen (0-5/HPF) Urine WBC 1-5/hpf (0-5/HPF) Ur Squamous Epith Cells 0-1 /hpf (0-5/HPF) Amorphous Sediment 1+ Urine Bacteria Moderate (10-30) H (None) Urine Mucus 1+ H (Negative) Ur Culture Indicated? Specimen cultured Vol Urine Centrifuged 10ml (spun) Urine Dip Bedside Urine Glucose Negative Bedside Urine Bilirubin - Negative Bedside Urine Ketone - Negative Urine Specific [place] 1.010 Bedside Urine Occult Blood - Negative Bedside Urine pH 6.0 Bedside Urine Protein - Negative Bedside Urine Urobilinogen - Negative Bedside Urine Nitrite - Negative Bedside Urine Leukocytes +/- 15 Esterase Imaging Data Chest x-ray: Radiologist's Impression: Amelia Mason??73??F??1950 ? Allergy/Adv: nickel Close Chest X-Ray (Signed) HayderАндрей - 01/19/24 Hip X-Ray (Signed) Precious Low - 11/06/22 Hip X-Ray (Signed) Jose Juan Umana - 11/06/22 Bone Densitometry (Signed) Marco Diaz - 07/02/22 Hip X-Ray (Signed) Marco Diaz - 06/20/22 Chest X-Ray (Signed) Marco Diaz - 06/20/22 Launch?[place] [address] XRay Report Signed Patient: Amelia Mason MR#: [id number] : 1950 Acct:[id number] Age/Sex: 73 / F Date of Service: 01/19/24 Loc: ED Accession Number: [id number] Procedure: XR chest 1V Ordering Provider: Melani Kruse D.O. PROCEDURE: XR CHEST 1V INDICATIONS: Shortness of breath TECHNIQUE: One view of the chest was acquired. COMPARISON: [facility], , XR CHEST 2V, 06/20/2022, 9:34. FINDINGS: Surgical changes and devices: None. Lungs and pleura: Focal dense opacity can be seen at the left lung base. No large pneumothorax is seen. Generalized interstitial prominence can be seen. Mediastinum: The cardiac contours are obscured, yet are believed to be moderately enlarged. Bones and chest wall: No suspicious bony lesions. Age-appropriate bony degenerative changes are seen. Overlying soft tissues appear unremarkable. IMPRESSION: Opacity at the left lung base, which is attributed to a moderately sized left-sided pleural effusion. Likely overlying atelectasis can be seen. There is believed to be cardiomegaly with interstitial prominence. Please consider CHF. Dictated by: Андрей Singletary M.D. on 01/19/2024 at 9:54 Approved by: Андрей Singletary M.D. on 01/19/2024 at 9:55 ECG Data Attestation: I personally reviewed and interpreted this ECG as follows: Prior ECG tracings: available for review Interpretation: Sinus rhythm rate 86 CT 156 QRS 80 QTC 423, nonspecific change. Patient has prior from 08/08/2022 which appears similar. MDM Narrative Medical decision making narrative: This is a 73-year-old female with progressive shortness of breath, bilateral lower extremity edema crackles on exam. Patient has known COPD but suspect she also has combination of this was CHF exacerbation. Patient is hypoxic at 83% on room air, heart rate was 90s, afebrile some mild tachypnea. Patient was placed on 2 L nasal cannula improved into the 90s O2 and feels significantly improved. Labs show white count 9.9 hemoglobin 14.6 hematocrit of 47 platelets of 208. INR 1. CMP shows sodium 138 potassium of 4 chloride 95 CO2 of 36 BUN 17 creatinine 0.61 glucose of 102 lactate 1.9 LFTs are negative troponins less than 0.012 with a BNP of 5280. EKG shows sinus rhythm with nonspecific change does not appear fairly similar to prior from July of 2022 Chest x-ray, opacity of the left lung base attributed moderately sized left side and pleural effusion likely overlying active seen. Believed to be cardiomegaly with interstitial prominence please consider CHF. Patient placed on 2 L nasal cannula, patient was also given Lasix 40 mg IV. Spoke with Dr. Moore, hospitalist accepts for inpatient hospitalization. saw patient in the department. Discharge Plan Departure Patient Disposition: Admitted As Inpatient Clinical Impression: COPD (chronic obstructive pulmonary disease), Acute exacerbation of CHF (congestive heart failure) Admit Date/Time: 01/19/24 12:10 Admit Provider: Navdeep Moore V
[2024-01-19 10:31] LABS: Add Manual Diff / Slide Review NO; Basophils Absolute Auto 100 /uL (0-100); Basophils Percent Auto 0.6 % (0-2); Eosinophils Absolute Auto 100 /uL (0-450); Eosinophils Percent Auto 0.9 % (2-4); Hemoglobin 14.6 g/dL (12.0-16.0); Lymphocytes Absolute Auto 800 /uL (1100-4500); Lymphocytes Percent Auto 8.2 % (25-40); Mean Corpuscular HGB Conc 31.1 % (30-36); Mean Corpuscular Hemoglobin 31.2 PG (26-34); Mean Corpuscular Volume 100.2 fL (80-100); Monocytes Absolute Auto 900 /uL (0-900); Monocytes Percent Auto 8.7 % (3-14); Neutrophils Absolute Auto 8100 /uL (1500-7000); Neutrophils Percent Auto 81.6 % (50-75); Platelet Count 208 X10^3/uL (150-400); Red Blood Cell Count 4.69 X10^6/uL (4.0-5.2); Red Cell Distribution Width 16.3 % (11.6-14.8); White Blood Cell Count 9.9 X10^3/uL (4.5-11.0)
[2024-01-19] MEDS: ALBUTEROL/IPRATROPIUM 3 ML AMPUL INH (10:37)
[2024-01-19 10:39] LABS: Prothrombin Time 11.8 SECONDS (9.4-12.5)
[2024-01-19 10:42] LABS: Lactate (Lactic Acid) 1.9 mmol/L (0.7-2.1)
[2024-01-19 10:43] LABS: Alanine Aminotransferase 17 IU/L (<35); Albumin 3.6 g/dL (3.5-5.0); Albumin Globulin Ratio 1.2 (1.0-2.8); Alkaline Phosphatase 95 U/L (38-126); Aspartate Aminotransferase 24 IU/L (14-36); BUN Creatinine Ratio 27.9 (6-22); Bilirubin Total 0.4 mg/dL (0.2-1.3); Blood Urea Nitrogen 17 mg/dL (7-17); Calcium 8.4 mg/dL (8.4-10.2); Chloride 95 mmol/L (98-107); Estimated Glomerular Filt Rate > 60 mL/min (>60); Globulin 2.9 g/dL (1.7-4.1); Glucose 102 mg/dL (80-110); Sodium 138 mmol/L (137-145); Total Protein 6.5 g/dL (6.3-8.2)
[2024-01-19 10:46] VITALS: PULSE 86; O2SAT 94
[2024-01-19 10:50] LABS: Carbon Dioxide 36 mmol/L (22-32); HEMOLYSIS < 15 (0-50)
[2024-01-19 10:53] LABS: NT-proBNP (BNP-Adult 18+) 5280 pg/mL (<125)
[2024-01-19] MEDS: FUROSEMIDE 40 MG/4 ML VIAL IV (10:54)
[2024-01-19 10:55] LABS: Troponin I 0.012 ng/mL (0.01-0.034)
[2024-01-19 11:54] LABS: Amorphous Sediment Urine 1+; Bacteria Urine Moderate (10-30); Culture Indicated Urine Specimen Cultured; Mucus Urine 1+ (Negative); RBC Urine None Seen (0-5/HPF); Squamous Epithelial Cell Urine 0-1 /HPF (0-5/HPF); Urine Volume 10mL (spun); WBC Urine 1-5/HPF (0-5/HPF)
--- NOTE | 2024-01-19 12:15 | DI.ECHO.S_ITS ---
[facility] +---------+ [facility] : : [address] : : [place] : : [address] : : Phone: [phone] Echocardiogram Report + + :Name: PAUL KELLY Study Date: 01/20/2024 Height: 62 in : :Hospital ReadingLocation: Weight: 160 lb : : Gender: Female BSA: 1.7 m2 : :: 1950 Age: 73 yrs BP: 123/71 mmHg: :Reason For Study: CONGESTIVE HEART FAILURE : :Ordering Physician: ISAIAS, : :TONY Performed By: Farideh Pritchett : :Referring: TONY ESPARZA : + + Interpretation Summary Normal left ventricle size with ejection fraction 60-65%. The right ventricle is mild to moderately dilated. Right ventricular systolic function is mildly reduced. The aortic valve is mildly calcified. Mild aortic regurgitation. The ascending aorta is mildly enlarged. Mild to moderate tricuspid regurgitation. The right ventricular systolic pressure is estimated to be at least 45 mmHg based on an estimated right atrial pressure of 3 mm Hg. Procedure: A two-dimensional transthoracic echocardiogram with color flow and Doppler was performed. The study quality was technically adequate. There is no prior echocardiogram noted for this patient. The heart rate ranged between 82-95 bpm during the study. Left Ventricle: The left ventricle is normal in size and wall thickness. The ejection fraction is estimated to be 60-65%. There are no focal wall motion abnormalities. Diastolic function could not be accurately assessed due to confounding valvular disease. Right Ventricle: The right ventricle is mild to moderately dilated. Right ventricular systolic function is mildly reduced. Atria: The left atrial size is normal. The right atrium is borderline dilated. There is no Doppler evidence for an interatrial shunt. Mitral Valve: The mitral valve leaflets appear mildly thickened, but open well. The mitral valve chordae are thickened and/or calcified. There is trace mitral regurgitation. Aortic Valve: The aortic valve is mildly calcified. The aortic valve is trileaflet. The aortic valve opens well. There is no aortic valve stenosis. There is mild aortic regurgitation. Tricuspid Valve: The tricuspid valve is normal in structure and function. There is mild to moderate tricuspid regurgitation. The right ventricular systolic pressure is estimated to be at least 45 mmHg based on an estimated right atrial pressure of 3 mm Hg. Pulmonic Valve: The pulmonic valve leaflets are thin and pliable; valve motion is normal. There is trace pulmonic regurgitation. Great Vessels: The aortic root is normal size. The ascending aorta is mildly enlarged. The IVC is of normal diameter and collapses greater than 50% with a sniff. This suggests a low right atrial pressure of 3 mm Hg. Pericardium/ Pleura There is no pericardial effusion. There is a moderate left-sided pleural effusion. MMode/2D Measurements & Calculations LVIDd: 4.0 cm LVOT diam: 2.0 cm LVIDs: 2.7 cm Ao root diam: 3.3 cm FS: 31.3 % asc Aorta Diam: 4.2 cm IVSd: 0.97 cm LVPWd: 0.91 cm LV denis. diameter/BSA (cm/m^2): 2.3 LV sys. diameter/BSA (cm/m^2): 1.6 LA A2 area: 19.3 cm2 RA long axis: 5.6 cm LA A4 area: 15.2 cm2 RA area: 17.6 cm2 LA length (vol): 5.1 cm RA vol: 47.5 ml LA vol: 48.9 ml RA : 27.3 ml/m2 LA vol index: 28.1 ml/m2 IVC diam: 1.1 cm RVD1 (basal): 4.3 cm RVD2 (mid): 3.9 cm TAPSE: 2.0 cm Doppler Measurements & Calculations Ao V2 max: 147.4 cm/sec LVOT Max Adonis: 105.7 cm/sec Ao V2 mean: 105.7 cm/sec LV V1 max P.5 mmHg Ao max P.7 mmHg LV V1 VTI: 16.9 cm Ao mean P.9 mmHg MILAGROS(I,D): 2.1 cm2 Ao V2 VTI: 25.0 cm MILAGROS(V,D): 2.2 cm2 sev ratio: 0.68 MILAGROS indexed to BSA (cm^2/m^2): 1.2 AI P1/2t: 440.2 msec AI dec slope: 269.8 cm/sec2 MV E max adonis: 68.7 cm/sec TR max adonis: 324.8 cm/sec MV A max adonis: 105.6 cm/sec TR max P.2 mmHg MV E/A: 0.65 PA V2 max: 74.5 cm/sec Med Peak E' Adonis: 10.1 cm/sec PA V2 mean: 49.9 cm/sec E/E' med: 6.8 PA mean P.1 mmHg Lat Peak E' Adonis: 5.6 cm/sec PA pr(Accel): 48.2 mmHg E/E' lat: 12.3 E/e' average: 9.5 MV dec time: 0.18 sec SV(LVOT): 52.4 ml Electronically signed by: Megan vargas Emmett Physician:01/20/2024 03:10 PM
--- NOTE | 2024-01-19 12:16 | PM.HP.1 ---
History of Present Illness History of Present Illness Date Patient Seen: 01/19/24 Time Patient Seen: 12:00 Date of Onset of Symptoms: 01/19/24 Chief complaint: SOB and swollen ankles PFSH Medical History History of COVID-19 (02/2022) Osteopenia Hearing loss Acne (~1964) Asthma Depression (~1973) Chicken pox (~1959) Cataracts, bilateral (~2008) Primary osteoarthritis involving multiple joints History of colonic polyps Tobacco use disorder COPD (chronic obstructive pulmonary disease) (~1988) Mixed hyperlipidemia Surgical History Hx of bilateral cataract extraction Anesthesia History of cholecystectomy (~2009) History of section Family History Father History of heart disease Mother History of heart disease Sister Overdose Grandfather History of heart disease Grandmother Alzheimer's disease Social History household members: family Smoking Status: Current some day smoker alcohol intake: former Meds Home Medications and Allergies Home Medications Medication Instructions Recorded Confirmed Type albuterol sulfate 90 mcg/actuation 2 puff inhalation Q6H PRN 06/14/22 07/30/23 Rx aerosol inhaler shortness of breath or wheezing #8.5 grams aspirin 325 mg tablet 325 mg PO Q4-6H PRN pain 09/12/22 07/30/23 History ibuprofen 200 mg capsule 400 mg PO Q4H PRN Pain 10/29/22 07/30/23 History rosuvastatin 10 mg tablet 10 mg PO DAILY #90 tabs 07/30/23 07/30/23 Rx Allergies Allergy/AdvReac Type Severity Reaction Status Date / Time nickel [NICKEL] Allergy Severe Rash Verified 07/30/23 07:56 Review of Systems Review of Systems ROS: Yes All systems reviewed with the patient and are negative except as otherwise documented Exam Vital Signs (past 8 hours): - 01/19/24 10:21 01/19/24 10:24 01/19/24 10:46 Temperature 98.4 F Pulse Rate 91 H 86 86 Respiratory Rate 24 36 H Blood Pressure 137/68 Pulse Oximetry 83 L 92 94 Oxygen Delivery Method Room Air Nasal Cannula Nasal Cannula Oxygen Flow Rate 2 1.5 Oxygen Delivery Method Nasal Cannula Oxygen Flow Rate 1.5 Narrative Exam Narrative: GENERAL: This is a well-nourished, well-developed patient, in moderate respiratory distress, sitting up in bed in tripod posture HEAD: Atraumatic. Normocephalic. No temporal or scalp tenderness. EYES: Pupils equal round and reactive. Extraocular motions intact. No scleral icterus. No injection or drainage. ENT: Mucous membranes pink and moist. NECK: Trachea midline. JVD present, no bruits or lymphadenopathy. Supple, nontender, no meningeal signs. CARDIOVASCULAR: Regular rate and rhythm with grade 2/6 NOREEN along LSB. RESPIRATORY: Absent breath sounds left lower 1/3, with large pleural effusion on bedside ultrasound; coarse right basilar crackles, diminished breath sounds throughout. GASTROINTESTINAL: Abdomen soft, non-tender, nondistended. EXTREMITIES: 2-3+ edema. BACK: Nontender without deformity or crepitance. No flank tenderness. NEUROLOGIC: Alert, oriented, speech fluent, full upper and lower motor strength, no focal deficits evident. DERMATOLOGIC: No rashes or skin lesions. Objective ECG Impression: Normal sinus rhythm at 86bpm Low voltage QRS Left anterior fascicular block Cannot rule out Inferior infarct (masked by fascicular block?) versus artifact, age undetermined Cannot rule out Anterior infarct , age undetermined ST & T wave abnormality, consider lateral ischemia versus artifact Imaging Chest x-ray: Radiologist's impression: Opacity at the left lung base, which is attributed to a moderately sized left-sided pleural effusion. Likely overlying atelectasis can be seen. There is believed to be cardiomegaly with interstitial prominence. Please consider CHF. Labs 01/19/24 10:20 01/19/24 10:20 Labs: Laboratory Results - last 24 hr 01/19/24 01/19/24 10:20 11:19 WBC 9.9 RBC 4.69 Hgb 14.6 Hct 47.0 H MCV 100.2 H MCH 31.2 MCHC 31.1 RDW 16.3 H Plt Count 208 Neut % (Auto) 81.6 H Lymph % (Auto) 8.2 L [place] % (Auto) 8.7 Eos % (Auto) 0.9 L Baso % (Auto) 0.6 Neut # (Auto) 8100 H Lymph # (Auto) 800 L [place] # (Auto) 900 Eos # (Auto) 100 Baso # (Auto) 100 PT 11.8 INR 1.0 Sodium 138 Potassium 4.0 Chloride 95 L Carbon Dioxide 36 H BUN 17 Creatinine 0.61 Estimated GFR > 60 BUN/Creatinine Ratio 27.9 H Glucose 102 Lactate 1.9 Calcium 8.4 Total Bilirubin 0.4 AST 24 ALT 17 Alkaline Phosphatase 95 Troponin I 0.012 NT-Pro-B Natriuret Pep 5280 H Total Protein 6.5 Albumin 3.6 Globulin 2.9 Albumin/Globulin Ratio 1.2 Urine RBC None seen Urine WBC 1-5/hpf Ur Squamous Epith Cells 0-1 /hpf Amorphous Sediment 1+ Urine Bacteria Moderate (10-30) H Urine Mucus 1+ H Ur Culture Indicated? Specimen cultured Vol Urine Centrifuged 10ml (spun) Assessment & Plan Assessment & Plan narrative: 1. Acute congestive heart failure. Presumed diastolic. Rule out systolic dysfunction and significant valvular disease. Admit to inpatient, treat with IV furosemide 80 mg every 8 hours, monitor electrolytes, obtain echocardiogram, and consider ischemic workup as indicated. 2. Chronic obstructive pulmonary disease. appears stable at baseline. Continue routine medication. 3. Acute hypoxemic respiratory failure due to 1. And contributing 2. Treatment supplemental oxygen and monitor. 4. Hyperlipidemia. Continue routine medication. She admits noncompliance. 5. History of tobacco use. She quit 1 week ago. Cessation encouraged. 6. DVT prophylaxis. Low-dose Lovenox. 7. Code status: Full code. She states she would not wish life support measures in the event of medical futility. Plan: -inpatient admission -furosemide 80 mg IV every 8 hours -supplemental oxygen -resume routine home medications, compliance encouraged -tobacco cessation congratulated and encouraged -echocardiogram -monitor electrolytes the patient will require at least 2 midnights of inpatient level care. PROFEE Charge Codes Initial inpatient/observation care: [id number]
[2024-01-19 12:25] VITALS: BP 117/61; PULSE 86; TEMP 36.6; O2SAT 92
--- NOTE | 2024-01-19 13:44 | PT-IP ANOTE ---
PT consult received. Pt adm today d/t SOB and B ankle edema. Per nsg, pt to get ready to have a lasix drip. Will initiate PT evaluation next date.
[2024-01-19] MEDS: FUROSEMIDE 80 MG in SODIUM CHLORIDE 0.9% 50 ML 116 MG IV ×2 (13:51→20:50)
[2024-01-19] MEDS: ENOXAPARIN 40 MG/0.4 ML SYRINGE SUBCUT (13:53)
[2024-01-19 13:54] VITALS: BMI 29.2
[2024-01-19 16:00] VITALS: BP 129/67; PULSE 79; RESP 18; TEMP 36.5; O2SAT 93
[2024-01-19 20:00] VITALS: BP 105/52; PULSE 89; RESP 19; TEMP 36.2; O2SAT 92
[2024-01-20] VITALS (23 sets, daily range): BP systolic 97–143; BP diastolic 53–71; PULSE 77–92; RESP 15–39; TEMP 31–36.4; O2SAT 87–97
[2024-01-20] MEDS: ALBUTEROL/IPRATROPIUM 3 ML AMPUL INH (03:39)
[2024-01-20] MEDS: FUROSEMIDE 80 MG in SODIUM CHLORIDE 0.9% 50 ML 116 MG IV ×3 (04:25→20:20)
[2024-01-20 04:44] LABS: Add Manual Diff / Slide Review NO; Basophils Absolute Auto 100 /uL (0-100); Basophils Percent Auto 0.6 % (0-2); Eosinophils Absolute Auto 100 /uL (0-450); Eosinophils Percent Auto 0.8 % (2-4); Hemoglobin 15.4 g/dL (12.0-16.0); Lymphocytes Absolute Auto 1000 /uL (1100-4500); Lymphocytes Percent Auto 10.8 % (25-40); Mean Corpuscular HGB Conc 31.5 % (30-36); Mean Corpuscular Hemoglobin 31.4 PG (26-34); Mean Corpuscular Volume 99.9 fL (80-100); Monocytes Absolute Auto 700 /uL (0-900); Monocytes Percent Auto 7.7 % (3-14); Neutrophils Absolute Auto 7000 /uL (1500-7000); Neutrophils Percent Auto 80.1 % (50-75); Platelet Count 196 X10^3/uL (150-400); Red Blood Cell Count 4.91 X10^6/uL (4.0-5.2); Red Cell Distribution Width 16.1 % (11.6-14.8); White Blood Cell Count 8.8 X10^3/uL (4.5-11.0)
[2024-01-20 05:39] LABS: BUN Creatinine Ratio 24.1 (6-22); Blood Urea Nitrogen 19 mg/dL (7-17); Calcium 8.2 mg/dL (8.4-10.2); Chloride 85 mmol/L (98-107); Estimated Glomerular Filt Rate > 60 mL/min (>60); Glucose 88 mg/dL (80-110); HEMOLYSIS < 15 (0-50); Potassium 3.9 mmol/L (3.4-5.1); Sodium 137 mmol/L (137-145)
[2024-01-20 05:50] LABS: Carbon Dioxide 49 mmol/L (22-32)
--- NOTE | 2024-01-20 06:44 | PC.NURSE ---
Good response to IV lasix. Very impulsive but fairly steady on feet. Bed alarm on for safety. 2-5L NC overnight to keep sat's >90% Intermittent tremor in BUE Pt oriented but occasionally seems forgetful or delayed in word finding
--- NOTE | 2024-01-20 08:27 | PM.PN.1 ---
Subjective Subjective Interval history: Summary: 73-year-old woman and primary care of Dr. Navdeep Moore reports 2 weeks of progressive shortness of breath. She has had progressive lower extremity edema and has had to sit up in bed due to shortness of breath. she has been taking her regular inhalers for chronic COPD but states she has been noncompliant on her routine medications otherwise. There are no recent sick contacts, she denies chest pain, hemoptysis, nausea, vomiting, abdominal pain, melena, and hematochezia, or recent infectious symptoms. In the emergency department she was hypoxic with oxygen saturation of 83% on room air. She is administered IV furosemide and supplemental oxygen and reports feeling better. She is seen at bedside with her daughter Yesy. S: She was having significant diuresis, and improving she had significant edema of the feet and ankles, but this is better. Her breathing does feel better. No chest pain. Exam Vital Signs (past 8 hours): - 01/20/24 01:47 01/20/24 03:33 01/20/24 04:00 Temperature 96.9 F L Pulse Rate 83 Respiratory Rate 21 Blood Pressure 123/71 Pulse Oximetry 90 L 93 Oxygen Delivery Method Nasal Cannula Oxygen Flow Rate 5 2 Fraction of Inspired Oxygen 01/20/24 04:41 01/20/24 07:32 Temperature Pulse Rate 86 Respiratory Rate Blood Pressure Pulse Oximetry 94 95 Oxygen Delivery Method Nasal Cannula Oxygen Flow Rate 4 4 Fraction of Inspired Oxygen 36 Fraction of Inspired Oxygen 36 SaO2/FiO2 Ratio 263 Oxygen Delivery Method Nasal Cannula Oxygen Flow Rate 4 Narrative Exam Narrative: NAD, alert and oriented. Fluent speech. Lungs are clear, normal rate and effort. Heart is regular, no murmur gallop or rub. Abdomen is soft, non distended. Extremities are with 1-2+ edema. Objective ECG Impression: Low voltage QRS Left anterior fascicular block Cannot rule out Inferior infarct (masked by fascicular block?) versus artifact, age undetermined Cannot rule out Anterior infarct , age undetermined ST & T wave abnormality, consider lateral ischemia versus artifact Imaging Chest x-ray: Radiologist's impression: Opacity at the left lung base, which is attributed to a moderately sized left-sided pleural effusion. Likely overlying atelectasis can be seen. There is believed to be cardiomegaly with interstitial prominence. Please consider CHF. Labs 01/20/24 03:25 01/20/24 03:25 Labs: Laboratory Results - last 24 hr 01/19/24 01/19/24 01/20/24 10:20 11:19 03:25 WBC 9.9 8.8 RBC 4.69 4.91 Hgb 14.6 15.4 Hct 47.0 H 49.0 H MCV 100.2 H 99.9 MCH 31.2 31.4 MCHC 31.1 31.5 RDW 16.3 H 16.1 H Plt Count 208 196 Neut % (Auto) 81.6 H 80.1 H Lymph % (Auto) 8.2 L 10.8 L [place] % (Auto) 8.7 7.7 Eos % (Auto) 0.9 L 0.8 L Baso % (Auto) 0.6 0.6 Neut # (Auto) 8100 H 7000 Lymph # (Auto) 800 L 1000 L [place] # (Auto) 900 700 Eos # (Auto) 100 100 Baso # (Auto) 100 100 PT 11.8 INR 1.0 Sodium 138 137 Potassium 4.0 3.9 Chloride 95 L 85 L Carbon Dioxide 36 H 49 H* BUN 17 19 H Creatinine 0.61 0.79 Estimated GFR > 60 > 60 BUN/Creatinine Ratio 27.9 H 24.1 H Glucose 102 88 Lactate 1.9 Calcium 8.4 8.2 L Total Bilirubin 0.4 AST 24 ALT 17 Alkaline Phosphatase 95 Troponin I 0.012 NT-Pro-B Natriuret Pep 5280 H Total Protein 6.5 Albumin 3.6 Globulin 2.9 Albumin/Globulin Ratio 1.2 Urine RBC None seen Urine WBC 1-5/hpf Ur Squamous Epith Cells 0-1 /hpf Amorphous Sediment 1+ Urine Bacteria Moderate (10-30) H Urine Mucus 1+ H Ur Culture Indicated? Specimen cultured Vol Urine Centrifuged 10ml (spun) [facility] Medical History History of COVID-19 (02/2022) Osteopenia Hearing loss Acne (~1964) Asthma Depression (~1973) Chicken pox (~1959) Cataracts, bilateral (~2008) Primary osteoarthritis involving multiple joints History of colonic polyps Tobacco use disorder COPD (chronic obstructive pulmonary disease) (~1988) Mixed hyperlipidemia Surgical History Hx of bilateral cataract extraction Anesthesia History of cholecystectomy (~2009) History of section Family History Father History of heart disease Mother History of heart disease Sister Overdose Grandfather History of heart disease Grandmother Alzheimer's disease Social History household members: family Smoking Status: Current some day smoker alcohol intake: former Assessment & Plan Assessment & Plan narrative: 1. Acute congestive heart failure. Presumed diastolic. Rule out systolic dysfunction and significant valvular disease. Admit to inpatient, treat with IV furosemide 80 mg every 8 hours, monitor electrolytes, obtain echocardiogram, and consider ischemic workup as indicated. 2. Chronic obstructive pulmonary disease. appears stable at baseline. Continue routine medication. 3. Acute hypoxemic respiratory failure due to 1. And contributing 2. Treatment supplemental oxygen and monitor. 4. Hyperlipidemia. Continue routine medication. She admits noncompliance. 5. History of tobacco use. She quit 1 week ago. Cessation encouraged. 6. DVT prophylaxis. Low-dose Lovenox. 7. Code status: Full code. She states she would not wish life support measures in the event of medical futility. Plan: -inpatient admission -continue furosemide 80 mg IV every 8 hours -supplemental oxygen, wean as able. No O2 at home usually. -resume routine home medications, compliance encouraged -tobacco cessation congratulated and encouraged -echocardiogram -monitor electrolytes the patient will require at least 2 midnights of inpatient level care. FLAKO: 01/20 Time-Based Coding :: [TOTAL MINUTES] spent with patient and on the chart (including review of chart, obtaining history, exam, reviewing outside data, placing orders, documenting exam and treatment plan, and counseling patient) on [DATE].
[2024-01-20] MEDS: ENOXAPARIN 40 MG/0.4 ML SYRINGE SUBCUT (08:58)
[2024-01-20] MEDS: polyethylene glycoL 3350 17 GM POWD.PACK PO (09:33)
--- NOTE | 2024-01-20 11:51 | PT.IIE ---
Current Diagnoses Acute on chronic diastolic (congestive) heart failure (01/19/24) Surgical History (Last Reviewed 01/20/24 @ 08:29 by Jai Allred MD) Anesthesia History of section History of cholecystectomy (~2009) Hx of bilateral cataract extraction Medical History (Last Reviewed 01/20/24 @ 08:29 by Jai Allred MD) Acne (~1964) Asthma Cataracts, bilateral (~2008) Chicken pox (~1959) COPD (chronic obstructive pulmonary disease) (~1988) Depression (~1973) Hearing loss History of colonic polyps History of COVID-19 (02/2022) Mixed hyperlipidemia Osteopenia Primary osteoarthritis involving multiple joints Tobacco use disorder Physical Therapy Inpatient Evaluation/Re-Eval M1 PT/OT-IP Prior Functional Status Start: 01/19/24 13:15 Freq: NEEDED Status: Active Protocol: Document 01/20/24 11:20 MB (Rec: 01/20/24 11:50 MB [id number]) Medical Review Prior Functional Status Medical History Reviewed Yes Diet/Fluid Consistency Regular Communication WNLs Mobility and Gait I and did not use AD in the house Activities of Daily Living and IADL's Pt does her own bathing and dressing, washes the dishes and fixes her own breakfast and lunch. Daughter typically fixes dinner. Social History Household Members family Living Arrangements House Number of Floors (Floors) One Floor Number of Stairs To Enter/Railing? 3 steps left rail to enter home and 3 steps left rail to BR Home Environment Standard Height Toilet,Tub/ Shower Home Equipment Four Wheel Walker,Straight Cane Employment Status Retired M2 PT-IP Current Condition Start: 01/19/24 13:15 Freq: NEEDED Status: Active Protocol: Document 01/20/24 11:20 MB (Rec: 01/20/24 11:50 MB [id number]) Physical Therapy Current Condition Current Condition Evaluation Date 01/20/24 Treatment Diagnosis SOB and swollen ankles, acute CHF and O2 dependent RF M3 PT-IP Subjective Start: 01/19/24 13:15 Freq: NEEDED Status: Active Protocol: Document 01/20/24 11:20 MB (Rec: 01/20/24 11:50 MB [id number]) Subjective Physical Therapy Visit Type Type Initial Evaluation Visit Start Time 11:20 Visit Stop Time 11:39 Number of BUSINESS OFFICE TECHNOLOGY INSTRUCTOR Visits 0 Physical Therapy Visit Comments Patient Comments Pt getting up to [facility] with daughter assistance upon arrival. Therapy Pain Assessment Pain When Pain Assessed At Rest Pain Present Pain Present Denied Pain M4 PT-IP Mobility and Gait Start: 01/19/24 13:15 Freq: NEEDED Status: Active Protocol: Document 01/20/24 11:20 MB (Rec: 01/20/24 11:50 MB [id number]) PT-Bed Mobility Assessment Supine to Sit Supine to Sit Standby Assistance,1 Person Assistance,Head of Bed Elevated,Bedrails Sit to Supine Sit to Supine Standby Assistance,1 Person Assistance,Head of Bed Elevated,Bedrails Scooting Scooting to Edge of Bed Standby Assistance Scooting Up and Down in Bed Standby Assistance PT-Transfer Assessment Sit to and From Stand Sit to and from Stand Contact Guard Assistance,1 Person Assistance,Use of Upper Extremities Equipment Transfer Assistive Device None Orthotic/Prosthetic Devices or Brace: No Transfers Transfer Destination Bed,Bedside Commode Transfer Technique Side stepping Transfer Ability Level of Assist Contact Guard Assistance Comments Mobility Comments Pt moving to [facility] with daughter upon arrival. Pt on 4L O2 and sats are 88% with mobility and increase to the 90s quickly. BP and HR in LUE: standing 98/53, 88; standing 1 ' 104/47, 88. Gait Assessment Gait Gait Assistance Required: Contact Guard Assist Distance (Feet) 3 Able to Maintain Weight Bearing Status Yes During Gait Assistive Devices Assistive Device None Orthotic/Prosthetic Devices or Brace: No Gait Deviations General Gait Pattern Decreased Stride Length, Decreased Feet Clearance,Step- to Gait,Wide Based Gait Factors Limiting Gait Function Factors Limiting Gait Function Decreased Activity Tolerance, Poor Balance PT-Balance Assessment Sitting Balance and Reactions Static Sitting Balance Ability Normal Dynamic Sitting Balance Ability Good Standing Balance and Reactions Static Standing Balance Ability Good Dynamic Standing Balance Ability Fair Device Used CGA from PT M5 PT-IP Objective Assessments Start: 01/19/24 13:15 Freq: NEEDED Status: Active Protocol: Document 01/20/24 11:20 MB (Rec: 01/20/24 11:50 MB [id number]) Orientation Orientation/Cognition Level of Alertness Alert Orientation Name,Age,Birthday,Month,Place, Situation Language Function Ability No Deficits Noted Safety Awareness Decreased Safety Awareness Memory Description No Deficits Noted Comments Daughter tends to answer some questions Gross Range of Motion Upper Extremity ROM Assessment Within Functional Limits Lower Extremity ROM Assessment Left Impaired Impairments L hip with some weakness with left SLR in bed Strength Upper Extremity Strength Assessment Within Functional Limits Lower Extremity Strength Assessment Within Functional Limits Muscle Tone Muscle Tone WNL Yes M6 PT-IP Treatment Start: 01/19/24 13:15 Freq: NEEDED Status: Active Protocol: Document 01/20/24 11:20 MB (Rec: 01/20/24 11:50 MB [id number]) Physical Therapy Treatment Education Education Provided Safety M7 PT-IP Assessment and Plan Start: 01/19/24 13:15 Freq: NEEDED Status: Active Protocol: Document 01/20/24 11:20 MB (Rec: 01/20/24 11:50 MB [id number]) PT Summary Assessment and Plan Potential Rehabilitation Potential Good Status of Condition at Evaluation Evolving Summary Impairments ROM,Strength,Balance,Bed Mobility,Transfers,Gait, Activity Tolerance Progress Towards Goals Slow Progress due to Activity Tolerance Assessment Summary Pt is a 73 y/o female adm with SOB and swollen ankles and found to have acute CHF and O2 dependent RF. Pt getting up to [facility] with daughter upon arrival. Pt presents with SOB at rest on 4L O2 and her sats drop with minimal mobility. BP is also low, especially diastolic BP, and may keep and eye on orthostatics in setting of acute CHF. Daughter is supportive and pt lives with daughter and RE and they can assist pt at d/c d/t flexible work schedule. Recommend up to chair with nsg for meals and progress mobility as endurance allows. Goals Bed Mobility Goal Independent Transfer Goal Independent,Front Wheeled Walker,Four Wheeled Walker Gait Goal Independent,Front Wheel Walker ,Four Wheel Walker Gait Distance 75 Other Goals Pt will ascend and descend 3 steps with left rail and no more than superv to allow safe home mobility. Progress to LRAD. Days to Meet Goals 5 Frequency of Treatment Frequency Of Treatment Once a Day Treatment Plan Physical Therapy Treatment Plan Bed Mobility Training,Transfer Training,Gait Training, Therapeutic Exercise,Balance Retraining,Discharge Planning, Hot or Cold Pack Weight Bearing Status Allowed Weight Bearing Amount (enter % No limitations or #) (%) Recommendations To Nursing Amount of Assist Needed 1 Person Assist Discharge Recommendations PT Discharge Recommendations Home with Assistance,Home Health Transportation Needs at Discharge Private Vehicle
--- NOTE | 2024-01-20 12:28 | CM.DANOTE ---
Initial DCP Assessment Note Pt is a 73 yo female, resident of [place], arrives with SOB, admitted for management of CHF with diuresis. PCP: Navdeep Moore Payer: Luiz MENSAH Reviewed chart, pt discussed in multidisciplinary rounds this morning. Discharge anticipated over the next 24-48 hrs. Met w/patient and her daughter Yesy; patient lives with daughter and grandchildren. Patient is indp in most ADLs, daughter assists with driving, chores and cooking. Discussed outpatient PT vs HH PT and patient/daughter would like patient to get outpatient therapy if recommended. No barriers identified at this time to patient's safe discharge home w/family to assist; close outpatient f/u recommended. CM team will plan to follow clinical course closely in case any DC needs or concerns arise. NATASHA Black Discharge Planning/Care Management CM Discharge Assessment Start: 01/20/24 12:24 Freq: Status: Active Protocol: Document 01/20/24 12:25 JOHN (Rec: 01/20/24 12:28 JOHN [id number]) Discharge Planning Assessment Assigned Drilling Engineer NATASHA Myers DPOA/Assigned Designee Name stephanie Santos Contact Information [phone] Advance Directives? No Advance Directives on File No History Provided By Patient,Family Member Prior Living Arrangements House Household Members family Type of transporation used prior to Relies on Others admit Independent with ADL's Yes: Poor activity tolerance Is patient alert and oriented? Yes Needs Assistance With Meal Prep,Home Chores / Shopping DME Already Rented / Owned FWW / Walker,Cane Patient/Family Preference OP PT Therapy Barriers to Discharge No Discharge Plan Home Transportation Arrangement Daughter Referrals Initiated None needed Whiteboard Updated in Patient Room with Yes name and ext. # of Drilling Engineer
--- NOTE | 2024-01-20 14:26 | PC.NURSE ---
LAC PIV bleeding around catheter, redressed but continued to bleed. IV removed, new IV started. Pt A&Ox3, increased forgetfulness throughout day. Adult daughter expressed concerns of confusion, She's not usually like this at all. This is worse than yesterday. O2 dropped from 4L NC to 2L NC, saturation 88%-92% on 2L NC. Provider Dr. Allred notified. New orders received. Care ongoing.
[2024-01-20 14:28] LABS: Allen Test for ABG Passed? Positive; Base Excess ABG 24.8 mmol/L (-2-3); Blood Gas Collection Site Right Radial; Delivery System Cannula; HCO3 ABG 58 mmol/L (23-27); Oxygen Saturation ABG 87 % (95-100); PCO2 ABG 97.1 mmHg (35-45); PO2 ABG 59 mmHg (80-100); TCO2 ABG > 50 mmol/L (23-27); pH ABG 7.38 (7.35-7.45)
[2024-01-20 17:21] LABS: Allen Test for ABG Passed? Positive; Base Excess ABG 25.3 mmol/L (-2-3); Blood Gas Collection Site Right Radial; Delivery System BiPAP; HCO3 ABG 57 mmol/L (23-27); Oxygen Saturation ABG 91 % (95-100); PO2 ABG 65 mmHg (80-100); TCO2 ABG > 50 mmol/L (23-27); pH ABG 7.44 (7.35-7.45)
[2024-01-20 17:38] LABS: PCO2 ABG 84.2 mmHg (35-45)
[2024-01-21] VITALS (28 sets, daily range): BP systolic 115–138; BP diastolic 56–61; PULSE 78–87; RESP 15–49; TEMP 31–36.8; O2SAT 83–96
[2024-01-21] MEDS: FUROSEMIDE 80 MG in SODIUM CHLORIDE 0.9% 50 ML 116 MG IV ×3 (04:21→20:59)
[2024-01-21] MEDS: ENOXAPARIN 40 MG/0.4 ML SYRINGE SUBCUT (08:46)
--- NOTE | 2024-01-21 13:49 | OT.IPNOTE ---
Pt states has no OT needs and that her daughter states to pharmacy picking technician a shower chair for her. Pt given energy conservations suggestions, no charge and discharge OT eval orders.
--- NOTE | 2024-01-21 13:49 | CM.DPNOTE ---
DCP Cont Reviewed chart. Patient discussed in multidisciplinary rounds. Patient transferred to ICU for Bipap. Plan remains discharge home w/family w/close outpatient follow up. CM team following clinical course closely in case any discharge needs or concerns arise. JW
[2024-01-21] MEDS: polyethylene glycoL 3350 17 GM POWD.PACK PO (14:02)
--- NOTE | 2024-01-21 15:20 | PT.IPTN ---
Current Diagnoses Acute on chronic diastolic (congestive) heart failure (01/19/24) Physical Therapy Treatment Note M2 PT-IP Current Condition Start: 01/19/24 13:15 Freq: NEEDED Status: Active Protocol: Document 01/20/24 11:20 MB (Rec: 01/20/24 11:50 MB [id number]) Physical Therapy Current Condition Current Condition Evaluation Date 01/20/24 Treatment Diagnosis SOB and swollen ankles, acute CHF and O2 dependent RF M3 PT-IP Subjective Start: 01/19/24 13:15 Freq: NEEDED Status: Active Protocol: Document 01/21/24 15:20 AB (Rec: 01/21/24 17:06 AB [id number]) Subjective Physical Therapy Visit Type Type Treatment Note Visit Start Time 15:20 Visit Stop Time 15:50 Number of PHARMACY ASSISTANT Visits 0 Physical Therapy Visit Comments Patient Comments agreeable to do PT M4 PT-IP Mobility and Gait Start: 01/19/24 13:15 Freq: NEEDED Status: Active Protocol: Document 01/21/24 15:20 AB (Rec: 01/21/24 17:06 AB [id number]) PT-Bed Mobility Assessment Supine to Sit Supine to Sit Standby Assistance,Head of Bed Elevated Sit to Supine Sit to Supine Standby Assistance,Head of Bed Elevated PT-Transfer Assessment Sit to and From Stand Sit to and from Stand Standby Assistance,1 Person Assistance,Use of Upper Extremities Equipment Transfer Assistive Device None,Gait Belt,Front Wheeled Walker Orthotic/Prosthetic Devices or Brace: No Comments Mobility Comments pt supine in bed and agreeable to do PT. pt just ambulated with NAC but agreed to get up again. supine to sit SBA with HOB elevated. O2 sat with 2L/ min O2 : 90%. NAC stated that p's O2 increased to 3L/min with ambulation. pt completed sit to stand SBA and ambulated in the hallway using FWW SBA to CGA. presents with NBOS with RLE tends to cross midline. cued to correct . pt ambulated back to her room and sat on the EOB. pt agreed to do steps. step stool positioned next to foot board for pt to use as a rail. pt ambulated from the bed to the step without AD CGA. completed up/down step stool using bed rail for support CGA. completed 2 sets. pt ambulated back to the EOB without AD CGA. O2 sat: 90%. completed sit to supine SBA. positioned pt in bed. call light and table placed within reach. Gait Assessment Gait Gait Assistance Required: Standby Assistance,Contact Guard Assist Distance (Feet) 125 Able to Maintain Weight Bearing Status Yes During Gait Assistive Devices Assistive Device None,Gait Belt,Front Wheeled Walker Orthotic/Prosthetic Devices or Brace: No Gait Deviations General Gait Pattern Antalgic,Decreased Stride Length,Decreased Feet Clearance,Step-to Gait Factors Limiting Gait Function Factors Limiting Gait Function Decreased Activity Tolerance, Decreased Strength,Difficulty Following Directions,Limited Range of Motion,Poor Balance, Poor Safety Awareness, Respiratory Distress Stair Climbing Assessment Evaluation Level of Assist On Stairs Contact Guard Assistance Devices Stair Climbing Assistive Devices Right Railing Technique/Endurance Stair Climbing Direction Ascend and Descend Stair Climbing Technique Step to Step Number of Steps Climbed 1 Stair Climbing Set # Repetitions (reps) 2 M5 PT-IP Objective Assessments Start: 01/19/24 13:15 Freq: NEEDED Status: Active Protocol: Document 01/20/24 11:20 MB (Rec: 01/20/24 11:50 MB [id number]) Orientation Orientation/Cognition Level of Alertness Alert Orientation Name,Age,Birthday,Month,Place, Situation Language Function Ability No Deficits Noted Safety Awareness Decreased Safety Awareness Memory Description No Deficits Noted Comments Daughter tends to answer some questions Gross Range of Motion Upper Extremity ROM Assessment Within Functional Limits Lower Extremity ROM Assessment Left Impaired Impairments L hip with some weakness with left SLR in bed Strength Upper Extremity Strength Assessment Within Functional Limits Lower Extremity Strength Assessment Within Functional Limits Muscle Tone Muscle Tone WNL Yes M6 PT-IP Treatment Start: 01/19/24 13:15 Freq: NEEDED Status: Active Protocol: Document 01/21/24 15:20 AB (Rec: 01/21/24 17:06 AB [id number]) Physical Therapy Treatment Education Education Provided Safety M7 PT-IP Assessment and Plan Start: 01/19/24 13:15 Freq: NEEDED Status: Active Protocol: Document 01/21/24 15:20 AB (Rec: 01/21/24 17:06 AB [id number]) PT Summary Assessment and Plan Potential Rehabilitation Potential Good Summary Impairments Pain,ROM,Strength,Balance, Coordination,Sensation,Tone, Cognition,Bed Mobility, Transfers,Gait,Activity Tolerance Progress Towards Goals Slow Progress due to Activity Tolerance Assessment Summary pt is progressing slowly with mobility using FWW and continues to need supplemental O2 with O2 sat at: 90% with activity with 3L/min O2. pt plans to go home and family to assist her. will continue to assess progress. Goals Bed Mobility Goal Independent Transfer Goal Independent,Front Wheeled Walker,Four Wheeled Walker Gait Goal Independent,Front Wheel Walker ,Four Wheel Walker Gait Distance 75 Other Goals Pt will ascend and descend 3 steps with left rail and no more than superv to allow safe home mobility. Progress to LRAD. Days to Meet Goals 10 Frequency of Treatment Frequency Of Treatment Once a Day Treatment Plan Physical Therapy Treatment Plan Bed Mobility Training,Transfer Training,Gait Training, Therapeutic Exercise,Balance Retraining,Discharge Planning, Hot or Cold Pack Recommendations To Nursing Amount of Assist Needed 1 Person Assist Discharge Recommendations PT Discharge Recommendations Home with Assistance,Home Health Transportation Needs at Discharge Private Vehicle
--- NOTE | 2024-01-21 16:47 | PM.PN.1 ---
Subjective Subjective Interval history: Summary: 73-year-old woman and primary care of Dr. Navdeep Moore reports 2 weeks of progressive shortness of breath. She has had progressive lower extremity edema and has had to sit up in bed due to shortness of breath. she has been taking her regular inhalers for chronic COPD but states she has been noncompliant on her routine medications otherwise. There are no recent sick contacts, she denies chest pain, hemoptysis, nausea, vomiting, abdominal pain, melena, and hematochezia, or recent infectious symptoms. In the emergency department she was hypoxic with oxygen saturation of 83% on room air. She is administered IV furosemide and supplemental oxygen and reports feeling better. She is seen at bedside with her daughter Yesy. S: She was having significant diuresis, and improving she had significant edema of the feet and ankles, but this is better. Her breathing does feel better. No chest pain. Exam Vital Signs (past 8 hours): - 01/21/24 09:00 01/21/24 10:00 01/21/24 10:03 Temperature 98.2 F Pulse Rate 85 85 Respiratory Rate 49 H 31 H Blood Pressure Pulse Oximetry 94 96 01/21/24 11:00 01/21/24 12:00 01/21/24 13:00 Temperature Pulse Rate 85 80 87 Respiratory Rate 21 19 33 H Blood Pressure Pulse Oximetry 92 89 L 90 L 01/21/24 14:00 01/21/24 14:51 01/21/24 15:00 Temperature 97.9 F Pulse Rate 81 82 Respiratory Rate 40 H 19 Blood Pressure Pulse Oximetry 93 90 L 01/21/24 15:27 01/21/24 15:27 Temperature Pulse Rate 87 Respiratory Rate 37 H Blood Pressure 115/56 L Pulse Oximetry 90 L Fraction of Inspired Oxygen 32 SaO2/FiO2 Ratio 287 Oxygen Delivery Method Nasal Cannula Oxygen Flow Rate 3 Narrative Exam Narrative: NAD, alert and oriented. Fluent speech. Lungs are clear, normal rate and effort. Heart is regular, no murmur gallop or rub. Abdomen is soft, non distended. Extremities are with 1+ edema bilaterally. Objective Labs 01/20/24 03:25 01/20/24 03:25 Labs: Laboratory Results - last 24 hr 01/20/24 17:15 ABG Sample Site Right radial ABG pH 7.44 ABG pCO2 84.2 H* ABG pO2 65 L ABG HCO3 57 H ABG Total CO2 > 50 H ABG O2 Saturation 91 L ABG Base Excess 25.3 H Jai Test Positive O2 Delivery Device Bipap FiO2 % 30 % [facility] Medical History History of COVID-19 (02/2022) Osteopenia Hearing loss Acne (~1964) Asthma Depression (~1973) Chicken pox (~1959) Cataracts, bilateral (~2008) Primary osteoarthritis involving multiple joints History of colonic polyps Tobacco use disorder COPD (chronic obstructive pulmonary disease) (~1988) Mixed hyperlipidemia Surgical History Hx of bilateral cataract extraction Anesthesia History of cholecystectomy (~2009) History of section Family History Father History of heart disease Mother History of heart disease Sister Overdose Grandfather History of heart disease Grandmother Alzheimer's disease Social History household members: family Smoking Status: Current some day smoker alcohol intake: former Assessment & Plan Assessment & Plan narrative: 1. Acute congestive heart failure. Presumed diastolic. Rule out systolic dysfunction and significant valvular disease. Admit to inpatient, treat with IV furosemide 80 mg every 8 hours, monitor electrolytes, obtain echocardiogram, and consider ischemic workup as indicated. 2. Chronic obstructive pulmonary disease. appears stable at baseline. Continue routine medication. 3. Acute hypoxemic respiratory failure due to 1. And contributing 2. Treatment supplemental oxygen and monitor. 4. Hyperlipidemia. Continue routine medication. She admits noncompliance. 5. History of tobacco use. She quit 1 week ago. Cessation encouraged. 6. DVT prophylaxis. Low-dose Lovenox. 7. Code status: Full code. She states she would not wish life support measures in the event of medical futility. Plan: -inpatient admission -continue furosemide 80 mg IV every 8 hours, no changes with continued improvement. -supplemental oxygen, wean as able. No O2 at home usually. Goal to discharge without but may be a few more days. Consider home O2 if nearing end of ability to diurese based on daily labs. -resume routine home medications, compliance encouraged -tobacco cessation congratulated and encouraged -echocardiogram -monitor electrolytes the patient will require at least 2 midnights of inpatient level care. Code: Secretary To Board Of Commissioners-Based Coding :: [TOTAL MINUTES] spent with patient and on the chart (including review of chart, obtaining history, exam, reviewing outside data, placing orders, documenting exam and treatment plan, and counseling patient) on [DATE].
[2024-01-22] VITALS (29 sets, daily range): BP systolic 116–143; BP diastolic 58–64; PULSE 71–95; RESP 13–66; TEMP 35.7–36.6; O2SAT 86–94
[2024-01-22] MEDS: FUROSEMIDE 80 MG in SODIUM CHLORIDE 0.9% 50 ML 116 MG IV ×3 (04:33→20:42)
[2024-01-22] MEDS: ENOXAPARIN 40 MG/0.4 ML SYRINGE SUBCUT (08:17)
[2024-01-22 09:46] LABS: Allen Test for ABG Passed? Positive; Base Excess ABG 21.9 mmol/L (-2-3); Blood Gas Collection Site Left Radial; Delivery System Cannula; HCO3 ABG 53 mmol/L (23-27); Oxygen Saturation ABG 88 % (95-100); PCO2 ABG 75.4 mmHg (35-45); PO2 ABG 56 mmHg (80-100); TCO2 ABG > 50 mmol/L (23-27); pH ABG 7.45 (7.35-7.45)
[2024-01-22 10:14] LABS: Alanine Aminotransferase 16 IU/L (<35); Albumin 3.6 g/dL (3.5-5.0); Albumin Globulin Ratio 1.2 (1.0-2.8); Alkaline Phosphatase 84 U/L (38-126); Aspartate Aminotransferase 26 IU/L (14-36); BUN Creatinine Ratio 28.1 (6-22); Bilirubin Total 0.9 mg/dL (0.2-1.3); Blood Urea Nitrogen 16 mg/dL (7-17); Calcium 8.4 mg/dL (8.4-10.2); Chloride 77 mmol/L (98-107); Estimated Glomerular Filt Rate > 60 mL/min (>60); Globulin 3.1 g/dL (1.7-4.1); Glucose 141 mg/dL (80-110); HEMOLYSIS < 15 (0-50); Magnesium 2.1 mg/dL (1.6-2.3); Potassium 3.3 mmol/L (3.4-5.1); Sodium 130 mmol/L (137-145); Total Protein 6.7 g/dL (6.3-8.2)
[2024-01-22 10:28] LABS: Carbon Dioxide 46 mmol/L (22-32)
--- NOTE | 2024-01-22 10:45 | PT.IPTN ---
Current Diagnoses Acute on chronic diastolic (congestive) heart failure (01/19/24) Physical Therapy Treatment Note M2 PT-IP Current Condition Start: 01/19/24 13:15 Freq: NEEDED Status: Active Protocol: Document 01/20/24 11:20 MB (Rec: 01/20/24 11:50 MB [id number]) Physical Therapy Current Condition Current Condition Evaluation Date 01/20/24 Treatment Diagnosis SOB and swollen ankles, acute CHF and O2 dependent RF M3 PT-IP Subjective Start: 01/19/24 13:15 Freq: NEEDED Status: Active Protocol: Document 01/22/24 10:45 DCW (Rec: 01/22/24 11:27 DCW [id number]) Subjective Physical Therapy Visit Type Type Treatment Note Visit Start Time 10:45 Visit Stop Time 11:13 Notes Pt seated in bed, daughter at bedside, agreeable to therapy Number of HAND GLOVE CLEANER Visits 0 Physical Therapy Visit Comments Patient Comments I feel puny. I'm not back to my standard yet. M4 PT-IP Mobility and Gait Start: 01/19/24 13:15 Freq: NEEDED Status: Active Protocol: Document 01/22/24 10:45 DCW (Rec: 01/22/24 11:27 DCW [id number]) PT-Bed Mobility Assessment Supine to Sit Supine to Sit Standby Assistance,Head of Bed Elevated Sit to Supine Sit to Supine Standby Assistance,Head of Bed Elevated PT-Transfer Assessment Sit to and From Stand Sit to and from Stand Independent,Use of Upper Extremities Equipment Transfer Assistive Device None,Gait Belt Transfers Transfer Destination Bed,Bedside Commode Transfer Technique Stand Step Pivot Transfer Ability Level of Assist Standby Assistance Comments Mobility Comments Pt seated in bed with HoB raised. Agreeable to participate in therapy, but notes that she probably has to use the restroom. Gait Assessment Gait Gait Assistance Required: Standby Assistance Distance (Feet) 100 Able to Maintain Weight Bearing Status Yes During Gait Assistive Devices Assistive Device None,Gait Belt Orthotic/Prosthetic Devices or Brace: No Gait Deviations General Gait Pattern Antalgic,Decreased Stride Length,Decreased Feet Clearance Factors Limiting Gait Function Factors Limiting Gait Function Decreased Activity Tolerance, Decreased Strength,Poor Balance,Poor Safety Awareness M5 PT-IP Objective Assessments Start: 01/19/24 13:15 Freq: NEEDED Status: Active Protocol: Document 01/20/24 11:20 MB (Rec: 01/20/24 11:50 MB [id number]) Orientation Orientation/Cognition Level of Alertness Alert Orientation Name,Age,Birthday,Month,Place, Situation Language Function Ability No Deficits Noted Safety Awareness Decreased Safety Awareness Memory Description No Deficits Noted Comments Daughter tends to answer some questions Gross Range of Motion Upper Extremity ROM Assessment Within Functional Limits Lower Extremity ROM Assessment Left Impaired Impairments L hip with some weakness with left SLR in bed Strength Upper Extremity Strength Assessment Within Functional Limits Lower Extremity Strength Assessment Within Functional Limits Muscle Tone Muscle Tone WNL Yes M6 PT-IP Treatment Start: 01/19/24 13:15 Freq: NEEDED Status: Active Protocol: Document 01/22/24 10:45 DCW (Rec: 01/22/24 11:28 DCW [id number]) Physical Therapy Treatment Education Education Provided Safety M7 PT-IP Assessment and Plan Start: 01/19/24 13:15 Freq: NEEDED Status: Active Protocol: Document 01/22/24 10:45 DCW (Rec: 01/22/24 11:27 DCW [id number]) PT Summary Assessment and Plan Potential Rehabilitation Potential Good Summary Impairments Pain,ROM,Strength,Balance, Coordination,Sensation,Tone, Cognition,Bed Mobility, Transfers,Gait,Activity Tolerance Progress Towards Goals Slow Progress due to Activity Tolerance Assessment Summary Pt transferred EoB to [facility] without an assistive device, then ambulated 100' in donis, again without using an assistive device. Stopped for standing rest break chcf, pulse ox showed O2 sat of 86% on 1L, increased portable oxygen to 2L, O2 sat returned to 91%. Goals Bed Mobility Goal Independent Transfer Goal Independent,Front Wheeled Walker,Four Wheeled Walker Gait Goal Independent,Front Wheel Walker ,Four Wheel Walker Gait Distance 75 Other Goals Pt will ascend and descend 3 steps with left rail and no more than superv to allow safe home mobility. Progress to LRAD. Days to Meet Goals 10 Frequency of Treatment Frequency Of Treatment Once a Day Treatment Plan Physical Therapy Treatment Plan Bed Mobility Training,Transfer Training,Gait Training, Therapeutic Exercise,Balance Retraining,Discharge Planning, Hot or Cold Pack Recommendations To Nursing Amount of Assist Needed 1 Person Assist Discharge Recommendations PT Discharge Recommendations Home with Assistance,Home Health Transportation Needs at Discharge Private Vehicle
--- NOTE | 2024-01-22 13:57 | PM.PN.1 ---
Subjective Subjective Interval history: Summary: 73-year-old woman and primary care of Dr. Navdeep Moore reports 2 weeks of progressive shortness of breath. She has had progressive lower extremity edema and has had to sit up in bed due to shortness of breath. she has been taking her regular inhalers for chronic COPD but states she has been noncompliant on her routine medications otherwise. There are no recent sick contacts, she denies chest pain, hemoptysis, nausea, vomiting, abdominal pain, melena, and hematochezia, or recent infectious symptoms. In the emergency department she was hypoxic with oxygen saturation of 83% on room air. She is administered IV furosemide and supplemental oxygen and reports feeling better. She is seen at bedside with her daughter. S: This morning daughter though patient was a bit off. She has been off of BiPAP for sometime. ABG showed pH of 4.5 with still PCO2 of 70. She remains on a small amount of supplemental oxygen today. Exam Vital Signs (past 8 hours): - 01/22/24 06:00 01/22/24 07:00 01/22/24 07:00 Temperature Pulse Rate 86 83 Respiratory Rate 40 H 38 H Blood Pressure Pulse Oximetry 90 L 91 Oxygen Delivery Method Nasal Cannula Oxygen Flow Rate 01/22/24 07:37 01/22/24 07:37 01/22/24 08:00 Temperature Pulse Rate 84 84 Respiratory Rate 34 H 38 H Blood Pressure 124/58 L Pulse Oximetry 90 L 91 Oxygen Delivery Method Oxygen Flow Rate 01/22/24 08:00 01/22/24 09:00 01/22/24 11:00 Temperature 97.3 F L Pulse Rate 84 90 Respiratory Rate 20 46 H Blood Pressure 124/58 L Pulse Oximetry 91 88 L Oxygen Delivery Method Nasal Cannula Oxygen Flow Rate 1 01/22/24 12:00 Temperature 97.2 F L Pulse Rate 83 Respiratory Rate 22 Blood Pressure 116/59 L Pulse Oximetry 92 Oxygen Delivery Method Oxygen Flow Rate 1 Fraction of Inspired Oxygen 32 SaO2/FiO2 Ratio 287 Oxygen Delivery Method Nasal Cannula Oxygen Flow Rate 1 Narrative Exam Narrative: NAD, alert and oriented. Fluent speech. Lungs are clear, normal rate and effort. Heart is regular, no murmur gallop or rub. Abdomen is soft, non distended. Extremities are with 1+ edema bilaterally. Objective Labs 01/20/24 03:25 01/22/24 09:48 Labs: Laboratory Results - last 24 hr 01/22/24 01/22/24 09:40 09:48 ABG Sample Site Left radial ABG pH 7.45 ABG pCO2 75.4 H* ABG pO2 56 L ABG HCO3 53 H ABG Total CO2 > 50 H ABG O2 Saturation 88 L ABG Base Excess 21.9 H Jai Test Positive O2 Delivery Device Cannula Sodium 130 L Potassium 3.3 L Chloride 77 L Carbon Dioxide 46 H* BUN 16 Creatinine 0.57 Estimated GFR > 60 BUN/Creatinine Ratio 28.1 H Glucose 141 H Calcium 8.4 Magnesium 2.1 Total Bilirubin 0.9 AST 26 ALT 16 Alkaline Phosphatase 84 Total Protein 6.7 Albumin 3.6 Globulin 3.1 Albumin/Globulin Ratio 1.2 PFS Medical History History of COVID-19 (02/2022) Osteopenia Hearing loss Acne (~1964) Asthma Depression (~1973) Chicken pox (~1959) Cataracts, bilateral (~2008) Primary osteoarthritis involving multiple joints History of colonic polyps Tobacco use disorder COPD (chronic obstructive pulmonary disease) (~1988) Mixed hyperlipidemia Surgical History Hx of bilateral cataract extraction Anesthesia History of cholecystectomy (~2009) History of section Family History Father History of heart disease Mother History of heart disease Sister Overdose Grandfather History of heart disease Grandmother Alzheimer's disease Social History household members: family Smoking Status: Current some day smoker alcohol intake: former Assessment & Plan Assessment & Plan narrative: 1. Acute diastolic heart failure. 2. Chronic obstructive pulmonary disease. appears stable at baseline. Continue routine medication. 3. Acute hypoxemic and acute on chronic hypercapnic respiratory failure due to 1. And contributing 2. 4. Hyperlipidemia. Continue routine medication. She admits noncompliance. 5. History of tobacco use. She quit 1 week ago. Cessation encouraged. Plan: -continue furosemide 80 mg IV every 8 hours, no changes with continued improvement. net negative 4L per I&O, renal function unchanged. -supplemental oxygen, wean as able. No O2 at home usually. Goal to discharge without but may be a few more days. Consider home O2 if nearing end of ability to diurese based on daily labs. -resume routine home medications, compliance encouraged -tobacco cessation congratulated and encouraged -echocardiogram -monitor electrolytes Dispo: 6. DVT prophylaxis. Low-dose Lovenox. 7. Code status: Full code. She states she would not wish life support measures in the event of medical futility. Time-Based Coding :: [TOTAL MINUTES] spent with patient and on the chart (including review of chart, obtaining history, exam, reviewing outside data, placing orders, documenting exam and treatment plan, and counseling patient) on [DATE].
[2024-01-22] MEDS: POTASSIUM CHLORIDE IN WATER 10 MEQ/100 ML PIGGYBACK 100 MEQ IV (21:15)
[2024-01-23] VITALS (32 sets, daily range): BP systolic 107–132; BP diastolic 51–91; PULSE 81–92; RESP 18–50; TEMP 36.2–36.4; O2SAT 84–96
[2024-01-23] MEDS: FUROSEMIDE 80 MG in SODIUM CHLORIDE 0.9% 50 ML 116 MG IV ×2 (04:20→13:03)
[2024-01-23 05:42] LABS: BUN Creatinine Ratio 25.8 (6-22); Blood Urea Nitrogen 16 mg/dL (7-17); Calcium 8.6 mg/dL (8.4-10.2); Chloride 78 mmol/L (98-107); Estimated Glomerular Filt Rate > 60 mL/min (>60); Glucose 136 mg/dL (80-110); HEMOLYSIS < 15 (0-50); Magnesium 2.1 mg/dL (1.6-2.3); Sodium 134 mmol/L (137-145)
[2024-01-23 05:54] LABS: Carbon Dioxide 51 mmol/L (22-32)
[2024-01-23] MEDS: POTASSIUM CHLORIDE 20 MEQ TAB 40 MEQ PO (08:13)
[2024-01-23] MEDS: polyethylene glycoL 3350 17 GM POWD.PACK PO (08:14)
[2024-01-23] MEDS: ENOXAPARIN 40 MG/0.4 ML SYRINGE SUBCUT (08:14)
--- NOTE | 2024-01-23 11:35 | PT.IPTN ---
Current Diagnoses Acute on chronic diastolic (congestive) heart failure (01/19/24) Physical Therapy Treatment Note M2 PT-IP Current Condition Start: 01/19/24 13:15 Freq: NEEDED Status: Active Protocol: Document 01/20/24 11:20 MB (Rec: 01/20/24 11:50 MB [id number]) Physical Therapy Current Condition Current Condition Evaluation Date 01/20/24 Treatment Diagnosis SOB and swollen ankles, acute CHF and O2 dependent RF M3 PT-IP Subjective Start: 01/19/24 13:15 Freq: NEEDED Status: Active Protocol: Document 01/23/24 11:52 TS (Rec: 01/23/24 12:02 TS [id number]) Subjective Physical Therapy Visit Type Type Treatment Note Visit Start Time 11:35 Visit Stop Time 11:50 Notes Daughter in room Number of TRUCK HOPPER Visits 1 Physical Therapy Visit Comments Patient Comments Pt found resting in bed, is agreeable to PT. M4 PT-IP Mobility and Gait Start: 01/19/24 13:15 Freq: NEEDED Status: Active Protocol: Document 01/23/24 11:52 TS (Rec: 01/23/24 12:02 TS [id number]) PT-Bed Mobility Assessment Supine to Sit Supine to Sit Independent,Head of Bed Elevated Scooting Scooting to Edge of Bed Independent PT-Transfer Assessment Sit to and From Stand Sit to and from Stand Independent,Use of Upper Extremities Equipment Transfer Assistive Device None,Gait Belt Comments Mobility Comments Pt resting on 2L's of o2 at 91 %. Supine to sit Ind with HOB elevated. STS with no AD Ind. She ambulates SBA with some unsteadiness and no AD. She performs stairs x12 CGA from daughter, pt has some SOB. Pt ambulates back to room, desats o2 to 83% on 2l's, recovers to low 90's after ~1min. Pt requested to use toilet. Gait Assessment Gait Gait Assistance Required: Standby Assistance Distance (Feet) 100 Able to Maintain Weight Bearing Status Yes During Gait Assistive Devices Assistive Device None,Gait Belt Gait Deviations General Gait Pattern Antalgic,Decreased Stride Length,Decreased Feet Clearance Factors Limiting Gait Function Factors Limiting Gait Function Decreased Activity Tolerance, Decreased Strength,Poor Balance,Poor Safety Awareness Stair Climbing Assessment Evaluation Level of Assist On Stairs Contact Guard Assistance Devices Stair Climbing Assistive Devices Right Railing Technique/Endurance Stair Climbing Direction Ascend and Descend Stair Climbing Technique Step to Step Number of Steps Climbed 12 PT-Balance Assessment Sitting Balance and Reactions Static Sitting Balance Ability Normal Dynamic Sitting Balance Ability Good Standing Balance and Reactions Static Standing Balance Ability Good Dynamic Standing Balance Ability Fair Device Used no AD M5 PT-IP Objective Assessments Start: 01/19/24 13:15 Freq: NEEDED Status: Active Protocol: Document 01/20/24 11:20 MB (Rec: 01/20/24 11:50 MB [id number]) Orientation Orientation/Cognition Level of Alertness Alert Orientation Name,Age,Birthday,Month,Place, Situation Language Function Ability No Deficits Noted Safety Awareness Decreased Safety Awareness Memory Description No Deficits Noted Comments Daughter tends to answer some questions Gross Range of Motion Upper Extremity ROM Assessment Within Functional Limits Lower Extremity ROM Assessment Left Impaired Impairments L hip with some weakness with left SLR in bed Strength Upper Extremity Strength Assessment Within Functional Limits Lower Extremity Strength Assessment Within Functional Limits Muscle Tone Muscle Tone WNL Yes M6 PT-IP Treatment Start: 01/19/24 13:15 Freq: NEEDED Status: Active Protocol: Document 01/23/24 11:52 TS (Rec: 01/23/24 12:02 TS [id number]) Physical Therapy Treatment Education Education Provided Safety M7 PT-IP Assessment and Plan Start: 01/19/24 13:15 Freq: NEEDED Status: Active Protocol: Document 01/23/24 11:52 TS (Rec: 01/23/24 12:02 TS [id number]) PT Summary Assessment and Plan Potential Rehabilitation Potential Good Summary Impairments Pain,ROM,Strength,Balance, Coordination,Sensation,Tone, Cognition,Bed Mobility, Transfers,Gait,Activity Tolerance Progress Towards Goals Progressing Toward Goals Assessment Summary Amelia is making progress with her mobility. She continues to ambulate longer distances with no AD. She performs stairs x12, desats to low 80's with her o2 but does recover quickly. PT is recommending home with assist and HHPT. Goals Bed Mobility Goal Independent Transfer Goal Independent,Front Wheeled Walker,Four Wheeled Walker Gait Goal Independent,Front Wheel Walker ,Four Wheel Walker Gait Distance 75 Other Goals Pt will ascend and descend 3 steps with left rail and no more than superv to allow safe home mobility. Progress to LRAD. Days to Meet Goals 10 Frequency of Treatment Frequency Of Treatment Once a Day Treatment Plan Physical Therapy Treatment Plan Bed Mobility Training,Transfer Training,Gait Training, Therapeutic Exercise,Balance Retraining,Discharge Planning, Hot or Cold Pack Recommendations To Nursing Amount of Assist Needed Standby Assistance Discharge Recommendations PT Discharge Recommendations Home with Assistance,Home Health Transportation Needs at Discharge Private Vehicle
--- NOTE | 2024-01-23 12:11 | CM.DPNOTE ---
DCP Note SUPERVISOR PAYROLL reviewed EMR. Per RN, pt no longer on BiPAP, getting to point where pt may need to be considered for home O2. Per hospitalist in morning rounds, plan to order home O2 eval today. Per chart, pt on 1L O2 currently. Per PT, rec home with assistance/HH. Per previous CM notes, pt and family preference was for OP PT. CM team will f/u about HH rule out closer to dc date. P: anticipate home with family in next day or two, may need new home O2. CM team will follow closely for HH r/o. CM team will continue to follow closely in case any additional DCP needs or concerns develop. NATASHA Sanches
--- NOTE | 2024-01-23 13:55 | PM.PN.1 ---
Subjective Subjective Interval history: Summary: 73-year-old woman and primary care of Dr. Navdeep Moore reports 2 weeks of progressive shortness of breath. She has had progressive lower extremity edema and has had to sit up in bed due to shortness of breath. she has been taking her regular inhalers for chronic COPD but states she has been noncompliant on her routine medications otherwise. There are no recent sick contacts, she denies chest pain, hemoptysis, nausea, vomiting, abdominal pain, melena, and hematochezia, or recent infectious symptoms. In the emergency department she was hypoxic with oxygen saturation of 83% on room air. She is administered IV furosemide and supplemental oxygen and reports feeling better. She is seen at bedside with her daughter. S: Patient remains on a slight amount of O2. Feels improved today. potassium is low, bicarb up a bit. will reduce diuretic to twice daily. Ordered home O2 evaluation. Exam Vital Signs (past 8 hours): - 01/23/24 08:00 01/23/24 11:42 01/23/24 13:00 Temperature 97.2 F L 97.4 F L Pulse Rate 87 81 Respiratory Rate 33 H 36 H Blood Pressure 131/62 113/91 H Pulse Oximetry 91 91 Oxygen Delivery Method Nasal Cannula Oxygen Flow Rate 1 1 Fraction of Inspired Oxygen 32 SaO2/FiO2 Ratio 287 Oxygen Delivery Method Nasal Cannula Oxygen Flow Rate 1 Narrative Exam Narrative: NAD, alert and oriented. Fluent speech. Lungs are clear, normal rate and effort. Heart is regular, no murmur gallop or rub. Abdomen is soft, non distended. Extremities are with 1+ edema bilaterally. Objective Labs 01/20/24 03:25 01/23/24 04:40 Labs: Laboratory Results - last 24 hr 01/23/24 04:40 Sodium 134 L Potassium 3.0 L Chloride 78 L Carbon Dioxide 51 H* BUN 16 Creatinine 0.62 Estimated GFR > 60 BUN/Creatinine Ratio 25.8 H Glucose 136 H Calcium 8.6 Magnesium 2.1 PFSH Medical History History of COVID-19 (02/2022) Osteopenia Hearing loss Acne (~1964) Asthma Depression (~1973) Chicken pox (~1959) Cataracts, bilateral (~2008) Primary osteoarthritis involving multiple joints History of colonic polyps Tobacco use disorder COPD (chronic obstructive pulmonary disease) (~1988) Mixed hyperlipidemia Surgical History Hx of bilateral cataract extraction Anesthesia History of cholecystectomy (~2009) History of section Family History Father History of heart disease Mother History of heart disease Sister Overdose Grandfather History of heart disease Grandmother Alzheimer's disease Social History household members: family Smoking Status: Current some day smoker alcohol intake: former Assessment & Plan Assessment & Plan narrative: 1. Acute diastolic heart failure. 2. Chronic obstructive pulmonary disease. appears stable at baseline. Continue routine medication. 3. Acute hypoxemic and acute on chronic hypercapnic respiratory failure due to 1. And contributing 2. 4. Hyperlipidemia. Continue routine medication. She admits noncompliance. 5. History of tobacco use. She quit 1 week ago. Cessation encouraged. 6. Hypokalemia due to diuresis. Plan: -continue furosemide 80 mg IV but reduce to BID, then transition to PO 40 mg daily tomorrow. renal function unchanged. -supplemental oxygen, wean as able. No O2 at home usually. Goal to discharge without but looking like she may need O2 chronically. Will order home O2 eval today, in anticipation for possible discharge tomorrow. -resume routine home medications, compliance encouraged -tobacco cessation congratulated and encouraged -echocardiogram -monitor electrolytes Dispo: Possible discharge home tomorrow, ordered home O2. 6. DVT prophylaxis. Low-dose Lovenox. 7. Code status: Full code. She states she would not wish life support measures in the event of medical futility. Time-Based Coding :: [TOTAL MINUTES] spent with patient and on the chart (including review of chart, obtaining history, exam, reviewing outside data, placing orders, documenting exam and treatment plan, and counseling patient) on [DATE].
[2024-01-23] MEDS: ALBUTEROL/IPRATROPIUM 3 ML AMPUL INH (20:15)
[2024-01-23] MEDS: BUDESONIDE 0.5 MG/2 ML NEB INH (20:15)
[2024-01-24] VITALS (10 sets, daily range): BP systolic 113–120; BP diastolic 54–58; PULSE 80–88; RESP 16–34; TEMP 36.4; O2SAT 88–92
[2024-01-24 05:37] LABS: BUN Creatinine Ratio 29.8 (6-22); Blood Urea Nitrogen 17 mg/dL (7-17); Calcium 8.6 mg/dL (8.4-10.2); Chloride 78 mmol/L (98-107); Estimated Glomerular Filt Rate > 60 mL/min (>60); Glucose 100 mg/dL (80-110); HEMOLYSIS < 15 (0-50); Magnesium 2.3 mg/dL (1.6-2.3); Potassium 3.3 mmol/L (3.4-5.1); Sodium 129 mmol/L (137-145)
[2024-01-24 05:47] LABS: Carbon Dioxide 45 mmol/L (22-32)
[2024-01-24] MEDS: ENOXAPARIN 40 MG/0.4 ML SYRINGE SUBCUT (08:17)
[2024-01-24] MEDS: POTASSIUM CHLORIDE 20 MEQ TAB 40 MEQ PO (08:18)
[2024-01-24] MEDS: FUROSEMIDE 40 MG TABLET PO (08:18)
[2024-01-24] MEDS: ALBUTEROL/IPRATROPIUM 3 ML AMPUL INH (09:10)
[2024-01-24] MEDS: BUDESONIDE 0.5 MG/2 ML NEB INH (09:10)
--- NOTE | 2024-01-24 10:43 | P.DS_ITS ---
History of Present Illness History of Present Illness Chief complaint: SOB and swollen ankles Narrative: HPI: 73-year-old woman and primary care of Dr. Navdeep Moore reports 2 weeks of progressive shortness of breath. She has had progressive lower extremity edema and has had to sit up in bed due to shortness of breath. she has been taking her regular inhalers for chronic COPD but states she has been noncompliant on her routine medications otherwise. There are no recent sick contacts, she denies chest pain, hemoptysis, nausea, vomiting, abdominal pain, melena, and hematochezia, or recent infectious symptoms. In the emergency department she was hypoxic with oxygen saturation of 83% on room air. She is administered IV furosemide and supplemental oxygen and reports feeling better. She is seen at bedside with her daughter Yesy. Discharge Providers Provider Date of admission: 01/19/24 12:10 Discharge Date: 01/24/24 Primary care physician: Navdeep Moore MD Consults: 01/19/24 12:14 Consult to Discharge Planning Routine Comment: Consult to Occupational Therapy Evaluate & Treat Comment: 01/19 Physician Instructions: Evaluate and treat Consult to Physical Therapy Evaluate & Treat Comment: 01/19 Physician Instructions: Evaluate and Treat Discharge provider: Jai Allred MD Summary Hospital Course Discharge Diagnosis: 1. Acute diastolic heart failure. 2. Chronic obstructive pulmonary disease. appears stable at baseline. Continue routine medication. 3. Acute hypoxemic and acute on chronic hypercapnic respiratory failure due to 1. And contributing 2. 4. Hyperlipidemia. Continue routine medication. She admits noncompliance. 5. History of tobacco use. 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 Ongoing cessation encouraged. 6. Hypokalemia due to diuresis. 7. Dilated right ventricle with tricuspid regurgitation, present on admission and active. Hospital Course: She was admitted with overt volume overload and diuresed. She required fairly aggressive diuresis with escalated doses of Lasix at 80 mg IV Q 8 hours. Her electrolytes were monitored and replaced as needed. Ultimately she was able to wean down to 1 L of oxygen with saturations of 90-92%. She was evaluated for home oxygen and comfortable going home with oxygen. She will be placed on Lasix 40 daily and asked to monitor daily weights. I believe there is a reasonable chance that she will require 40 b.i.d. within the next 1-2 weeks. She was seen her PCP early next week for follow up. EKG did reveal some nonspecific ST changes lateral leads. When troponin was normal. Echo revealed a dilated right ventricle with tricuspid regurgitation. Status at Discharge Cognitive/behavioral status at discharge: at baseline, oriented Functional status at discharge: uses cane/walker Overall status at discharge: patient is progressing back to baseline Time Spent with Patient Time spent: Greater than 30 minutes Exam Vital Signs (past 8 hours): - 01/24/24 03:00 01/24/24 04:00 01/24/24 04:08 Temperature Pulse Rate 86 80 82 Respiratory Rate 31 H 21 34 H Blood Pressure Pulse Oximetry 92 91 90 L Oxygen Delivery Method Oxygen Flow Rate 01/24/24 04:08 01/24/24 04:37 01/24/24 08:00 Temperature Pulse Rate 85 Respiratory Rate 28 H Blood Pressure 120/57 L 117/58 L Pulse Oximetry 90 L Oxygen Delivery Method Nasal Cannula Oxygen Flow Rate 1 01/24/24 08:48 01/24/24 09:10 01/24/24 09:13 Temperature 97.5 F L Pulse Rate 88 Respiratory Rate 16 Blood Pressure Pulse Oximetry 91 Oxygen Delivery Method Nasal Cannula Nasal Cannula Oxygen Flow Rate 1 Fraction of Inspired Oxygen 24 SaO2/FiO2 Ratio 400 Oxygen Delivery Method Nasal Cannula Oxygen Flow Rate 1 Narrative Exam Narrative: NAD, alert and oriented. Fluent speech. Lungs are clear, normal rate and effort. Heart is regular, no murmur gallop or rub. Abdomen is soft, non distended. Extremities are free of edema. Objective ECG Impression: Low voltage QRS Left anterior fascicular block Cannot rule out Inferior infarct (masked by fascicular block?) , age undetermined Cannot rule out Anterior infarct , age undetermined ST & T wave abnormality, consider lateral ischemia Imaging Chest x-ray: Radiologist's impression: Opacity at the left lung base, which is attributed to a moderately sized left- sided pleural effusion. Likely overlying atelectasis can be seen. There is believed to be cardiomegaly with interstitial prominence. Please consider CHF. Echo: Radiologist's impression: Interpretation Summary Normal left ventricle size with ejection fraction 60-65%. The right ventricle is mild to moderately dilated. Right ventricular systolic function is mildly reduced. The aortic valve is mildly calcified. Mild aortic regurgitation. The ascending aorta is mildly enlarged. Mild to moderate tricuspid regurgitation. The right ventricular systolic pressure is estimated to be at least 45 mmHg based on an estimated right atrial pressure of 3 mm Hg. Labs 01/20/24 03:25 01/24/24 04:45 Labs: Laboratory Results - last 24 hr 01/24/24 04:45 Sodium 129 L Potassium 3.3 L Chloride 78 L Carbon Dioxide 45 H* BUN 17 Creatinine 0.57 Estimated GFR > 60 BUN/Creatinine Ratio 29.8 H Glucose 100 Calcium 8.6 Magnesium 2.3 [facility] Medical History History of COVID-19 (02/2022) Osteopenia Hearing loss Acne (~1964) Asthma Depression (~1973) Chicken pox (~1959) Cataracts, bilateral (~2008) Primary osteoarthritis involving multiple joints History of colonic polyps Tobacco use disorder COPD (chronic obstructive pulmonary disease) (~1988) Mixed hyperlipidemia Surgical History Hx of bilateral cataract extraction Anesthesia History of cholecystectomy (~2009) History of section Family History Father History of heart disease Mother History of heart disease Sister Overdose Grandfather History of heart disease Grandmother Alzheimer's disease Social History household members: family Smoking Status: Current some day smoker alcohol intake: former Discharge Assessment & Plan Assessment and Plan Assessment: 1. Acute diastolic heart failure. 2. Chronic obstructive pulmonary disease. appears stable at baseline. Continue routine medication. 3. Acute hypoxemic and acute on chronic hypercapnic respiratory failure due to 1. And contributing 2. Plan of Treatment: Discharge home on Lasix 40 daily, PCP within 5-6 days. Anticipate a probable increase of Lasix dose. She will check weights daily. There is a probable component of right-sided failure secondary to lung disease. She was discharged on home oxygen. Discharge Plan Discharge Plan Patient Disposition: Home Health Service Provider Discharge Comment: Stable for discharge to home with Discharge orders & Medications Prescriptions: New furosemide 40 mg tablet 40 mg PO DAILY 30 Days Qty: 30 0RF fluticasone propion-salmeterol [Advair HFA] 115-21 mcg/actuation HFA aerosol inhaler 2 puff inhalation BID 30 Days Qty: 12 0RF Rx Instructions: administer with spacer Continued albuterol sulfate 90 mcg/actuation HFA aerosol inhaler 2 puff inhalation Q6H PRN (Reason: shortness of breath or wheezing) Qty: 8.5 5RF aspirin 325 mg tablet 325 mg PO Q4-6H PRN (Reason: pain) Discontinued ibuprofen 200 mg Capsule 400 mg PO Q4H PRN (Reason: Pain) Medication counseling provided by Pharmacist: No Follow up/Referrals: Navdeep Moore MD [Primary Care Provider] - Diet/Activity/Treatments Diet: Low-sodium Diet comment: Low salt diet. Activity: As tolerated. Home O2. Skin/Wound/Dressing Care Report to your healthcare provider any signs of infection, such as:: chills, fever, increased pain and unusual drainage Visit Report/Discharge Packet Stand Alone Forms: Congestive Heart Failure, Patient Portal/API Discharge Data Primary Care Provider: Navdeep Moore V Quality MIPS - DC The patient has a history of heart transplant or Left Ventricular Assist Device (LVAD). If yes, STOP here.: No The patient has current or prior documentation of left ventricular ejection fraction (LVEF) less than or equal to 40%, or moderate or severely depressed left ventricular systolic function.: No
--- NOTE | 2024-01-24 11:03 | CM.DPNOTE ---
DCP Note PHOTOVOLTAIC PANEL INSTALLER reviewed EMR. Per hospitalist in morning rounds, home today with new home O2. wants PCP f/u in 5-6 days. PHOTOVOLTAIC PANEL INSTALLER met with pt and dtr in room. Pt does not want HH at this time but will reach out to PCP group if changes mind. Denies other CM/DCP needs at this time. PHOTOVOLTAIC PANEL INSTALLER messaged OP TCM group on pt's dc today and hospitalist's hopeful f/u. P: Dc home today with dtr support and close OP f/u. CM team will continue to follow as needed NATASHA Sanches
--- NOTE | 2024-01-24 13:28 | PC.NURSE ---
pt discharged home on o2/1l/nc; iv removed intact and tele removed; written and verbal discharge instructions given to pt and daughter and both verbalized understanding; questions answered; all belongings, including o2 tank sent w/ pt; escorted to private vehicle via w/c
== END 2024-01-24 13:27 | disposition home or self-care (01) | DRG 291 ==
LOC: ED 11:34 → AC 12:10 → ICU 01-20 14:34
PROVIDERS: Internal Medicine; Admitting Provider Internal Medicine; Emergency Provider Emergency Medicine; Family Provider Internal Medicine; PCP Internal Medicine; Referring Provider Emergency Medicine; Visit Provider Internal Medicine
DX: I50.31 Acute diastolic (congestive) heart failure (principal); J96.01 Acute respiratory failure with hypoxia; J96.22 Acute and chronic respiratory failure with hypercapnia; J44.9 Chronic obstructive pulmonary disease, unspecified; E78.5 Hyperlipidemia, unspecified; E87.6 Hypokalemia; T50.2X5A Adverse effect of carbonic-anhydrase inhibitors, benzothiadiazides and other diuretics, initial encounter; I51.7 Cardiomegaly; Z91.148 Patient's other noncompliance with medication regimen for other reason; Z87.891 Personal history of nicotine dependence
CPT/HCPCS: 36415; 36600; 71045; 80048; 80053; 81003; 81015; 82805; 83605; 83735; 83880; 84484; 85025; 85610; 87086; 93005; 93010; 93306; 94618; 94640; 94660; 96374; 97116; 97161; 97530; 99285; J1650; J1940

== ENCOUNTER → 2024-01-29 14:59 | Outpatient (CLI) | payer OTHER, SELFPAY ==
[2024-01-19 13:54] VITALS: BMI 29.2
[2024-01-21 03:35] VITALS: PULSE 80; RESP 36; O2SAT 89
[2024-01-29 16:36] LABS: Alanine Aminotransferase 26 IU/L (<35); Albumin Globulin Ratio 1.3 (1.0-2.8); Alkaline Phosphatase 93 U/L (38-126); Aspartate Aminotransferase 32 IU/L (14-36); BUN Creatinine Ratio 32.3 (6-22); Bilirubin Total 0.5 mg/dL (0.2-1.3); Blood Urea Nitrogen 20 mg/dL (7-17); Calcium 9.2 mg/dL (8.4-10.2); Chloride 90 mmol/L (98-107); Estimated Glomerular Filt Rate > 60 mL/min (>60); Globulin 3.2 g/dL (1.7-4.1); Glucose 124 mg/dL (80-110); HEMOLYSIS < 15 (0-50); Potassium 4.2 mmol/L (3.4-5.1); Sodium 138 mmol/L (137-145); Total Protein 7.2 g/dL (6.3-8.2)
[2024-01-29 16:43] LABS: Carbon Dioxide 38 mmol/L (22-32)
== END ==
PROVIDERS: Family Provider Internal Medicine; PCP Internal Medicine; Referring Provider Physician Assistant; Visit Provider Physician Assistant
DX: I50.9 Heart failure, unspecified (principal); J44.9 Chronic obstructive pulmonary disease, unspecified
CPT/HCPCS: 36415; 80053

== ENCOUNTER 2024-06-19 09:10 | Inpatient (IN) | payer OTHER, SELFPAY ==
[2024-01-21 03:35] VITALS: PULSE 80; RESP 36; O2SAT 89
[2024-06-19] VITALS (44 sets, daily range): BP systolic 95–152; BP diastolic 51–76; PULSE 64–94; RESP 12–34; TEMP 30.8–37.7; O2SAT 77–95; BMI 30.7; BMI 31.2
--- NOTE | 2024-06-19 09:28 | DI.RAD.S_ITS ---
PROCEDURE: XR CHEST 1V INDICATIONS: Shortness of breath TECHNIQUE: One view of the chest was acquired. COMPARISON: [facility], CR, XR CHEST 1V, 01/19/2024, 10:29. FINDINGS: Surgical changes and devices: None. Lungs and pleura: Patchy bilateral interstitial opacities. Mediastinum: Mediastinal contours appear normal. Heart size is enlarged. Bones and chest wall: No suspicious bony lesions. Overlying soft tissues appear unremarkable. IMPRESSION: Interstitial opacities suspicious for pneumonia. Underlying edema should be considered. Dictated by: Jenn Pink M.D. on 06/19/2024 at 9:54 Approved by: Jenn Pink M.D. on 06/19/2024 at 9:55
[2024-06-19] MEDS: ALBUTEROL/IPRATROPIUM 3 ML AMPUL INH ×2 (09:34→19:34)
--- NOTE | 2024-06-19 09:46 | EKG_ITS ---
[address] [address] Test Date: 2024-06-19 Pat Name: Amelia Mason Department: Room: Gender: Female Ship Scaler: KIM : 1950 Requested By: Order Number: [id number] Reading MD: Maninder Araiza Measurements Intervals [place] Rate: 92 P: 59 ME: 168 QRS: -57 QRSD: 94 T: 58 QT: 602 QTc: 744 Interpretive Statements Critical Test Result: Long QTc Sinus rhythm with premature atrial complexes Left anterior fascicular block Nonspecific T wave abnormality Prolonged QT Electronically Signed On 06-21-2024 18:56:07 PST by Maninder Araiza
[2024-06-19 09:50] LABS: Base Excess VBG 4.8 mmol/L (0-4); HCO3 VBG 34 mmol/L (24-28); Oxygen Saturation VBG 90 % (70-75); PCO2 VBG 70.5 mmHg (45-50); PO2 VBG 68 mmHg (35-45); Total CO2 VBG 34 mmol/L (24-29); pH VBG 7.29 (7.33-7.43)
--- NOTE | 2024-06-19 09:50 | PC.NURSE ---
Pt afebrile currently. She had fevers/chills on saturday. Increased confusion as she is not compliant with her home oxygen or medications because she is cheap. Daughter reports her mother has the finances for her medication but is not compliant with taking them. Occasionally pt takes her lasix. Known COPD and her daughter reports she is usually 87-94%.
[2024-06-19 09:55] LABS: Add Manual Diff / Slide Review NO; Basophils Absolute Auto 100 /uL (0-100); Basophils Percent Auto 0.2 % (0-2); Eosinophils Absolute Auto 0 /uL (0-450); Hematocrit 41.1 % (36-46); Hemoglobin 13.3 g/dL (12.0-16.0); Lymphocytes Absolute Auto 400 /uL (1100-4500); Lymphocytes Percent Auto 1.5 % (25-40); Mean Corpuscular HGB Conc 32.4 % (30-36); Mean Corpuscular Hemoglobin 32.8 PG (26-34); Mean Corpuscular Volume 101.4 fL (80-100); Monocytes Absolute Auto 1100 /uL (0-900); Monocytes Percent Auto 4.8 % (3-14); Neutrophils Absolute Auto 22000 /uL (1500-7000); Neutrophils Percent Auto 93.5 % (50-75); Platelet Count 207 X10^3/uL (150-400); Red Blood Cell Count 4.05 X10^6/uL (4.0-5.2); Red Cell Distribution Width 14.5 % (11.6-14.8); White Blood Cell Count 23.5 X10^3/uL (4.5-11.0)
--- NOTE | 2024-06-19 09:59 | ED.SOB ---
HPI - SOB/Dyspnea General Chief Complaint: Shortness of Breath/Dyspnea Stated Complaint: O2 dropped , dizzy maybe flu Time Seen by Provider: 06/19/24 09:52 Source: patient and family Mode of arrival: Wheelchair Limitations: altered mental status History of Present Illness HPI Narrative: Patient here with daughter for dizziness and shortness of breath. Patient does have CHF and COPD. Admitted here in January 2024 for CHF exacerbation. She has not been taking her home medications and diuretics because not feeling well. She is on 3 L nasal cannula however is not continuous. O2 tubing on arrival was kinked and possibly patient was not getting enough oxygen. We are currently on 3 L nasal cannula at 96%. Patient is hard of hearing. Daughter does not think she has been retaining fluid as much she did last year. Daughter and grandson both have the flu. Related Data Home Medications Medication Instructions Recorded Confirmed aspirin 325 mg tablet 325 mg PO Q4-6H PRN pain 09/12/22 06/19/24 Previous Rx's Medication Instructions Recorded albuterol sulfate 90 mcg/actuation 2 puff inhalation Q6H PRN 06/14/22 aerosol inhaler shortness of breath or wheezing #8.5 grams Parking Permit... #1 ea 01/29/24 furosemide 40 mg tablet 40 mg PO DAILY #30 tabs 02/26/24 Advair HFA 115 mcg-21 2 puff inhalation BID #12 grams 03/16/24 mcg/actuation aerosol inhaler (fluticasone propion-salmeterol) Allergies Allergy/AdvReac Type Severity Reaction Status Date / Time nickel [NICKEL] Allergy Severe Rash Verified 02/20/24 16:13 Review of Systems Review of Systems Narrative: GENERAL: Negative chills, fatigue, malaise, fever, sweats. HEENT: Negative sinus pain, ear pain, sore throat RESPIRATORY: Positive dyspnea, cough CARDIOVASCULAR: Negative chest pain, palpitations GASTROINTESTINAL: Negative nausea, vomiting, abdominal pain : Negative dysuria, frequency, hematuria MUSCULOSKELETAL: Negative muscle or bony pain SKIN: Negative rash, skin lesions NEUROLOGIC: Negative weakness, numbness, positive dizziness ROS Unobtainable: All systems reviewed & are unremarkable except as noted in HPI and below Patient History Medical History Do not resuscitate Chronic hypoxemic respiratory failure Chronic diastolic (congestive) heart failure History of [facility] (02/2022) Osteopenia Hearing loss Acne (~1964) Asthma Depression (~1973) Chicken pox (~1959) Cataracts, bilateral (~2008) Primary osteoarthritis involving multiple joints History of colonic polyps Tobacco use disorder COPD (chronic obstructive pulmonary disease) (~1988) Mixed hyperlipidemia Surgical History Hx of bilateral cataract extraction Anesthesia History of cholecystectomy (~2009) History of section Family History Father History of heart disease Mother History of heart disease Sister Overdose Grandfather History of heart disease Grandmother Alzheimer's disease Social History household members: family and children Smoking Status: Former smoker alcohol intake: former Smoking Status: Former smoker Exam Narrative Exam Narrative: GENERAL: in no distress, not toxic not dyspneic HEAD: Normocephalic. EYES: Pupils equal round ENT: Mucous membranes moist. NECK: Trachea midline. CARDIOVASCULAR: Regular rate and rhythm RESPIRATORY: Coarse bilateral basilar lung sounds with rales. Patient in no respiratory distress. GASTROINTESTINAL: Abdomen soft, non-tender EXTREMITIES: No gross deformities. No ankle edema BACK: No flank tenderness. NEURO: AOx4. Clear speech SKIN: Warm and dry PSYCH: Not anxious, is cooperative Initial Vital Signs Initial Vital Signs: Vital Signs Temperature 99.8 F H 06/19/24 09:10 Pulse Rate 92 H 06/19/24 09:10 Respiratory Rate 30 H 06/19/24 09:10 Blood Pressure 119/56 L 06/19/24 09:10 Pulse Oximetry 77 L 06/19/24 09:10 Oxygen Delivery Method Nasal Cannula 06/19/24 09:10 Oxygen Flow Rate 3 06/19/24 09:10 Course Orders Ordered: Acetaminophen (Acetaminophen 325 Mg Tablet) 650 mg PO Q6H PRN PRN Reason: Fever/Mild Pain (1-3) Albuterol (Albuterol 2.5 Mg/3 Ml Neb (Adult)) 2.5 mg INH [id number] PRN PRN Reason: Shortness Of Breath Albuterol/Ipratropium (Albuterol/Ipratropium 3 Ml Ampul) 3 ml INH [id number] NILAM Last Admin: 06/22/24 07:33 Dose: 3 ml Documented By: Admin: 06/21/24 18:47 Dose: 3 ml Documented By: Admin: 06/21/24 13:59 Dose: 3 ml Documented By: Admin: 06/21/24 07:43 Dose: 3 ml Documented By: Admin: 06/20/24 20:57 Dose: 3 ml Documented By: Admin: 06/20/24 13:15 Dose: 3 ml Documented By: Admin: 06/20/24 08:40 Dose: 3 ml Documented By: Admin: 06/19/24 19:34 Dose: 3 ml Documented By: HEAVENLY Budesonide (Budesonide 0.5 Mg/2 Ml Neb) 0.5 mg INH RTBID [facility] Last Admin: 06/22/24 07:33 Dose: 0.5 mg Documented By: Admin: 06/21/24 18:47 Dose: 0.5 mg Documented By: Admin: 06/21/24 07:43 Dose: 0.5 mg Documented By: Admin: 06/21/24 07:43 Dose: Not Given Documented By: Admin: 06/20/24 08:40 Dose: 0.5 mg Documented By: Admin: 06/19/24 19:34 Dose: 0.5 mg Documented By: HEAVENLY Enoxaparin Sodium (Enoxaparin 40 Mg/0.4 Ml Syringe) 40 mg SUBCUT DAILY [facility] Last Admin: 06/21/24 09:16 Dose: 40 mg Documented By: Admin: 06/20/24 09:09 Dose: 40 mg Documented By: Furosemide (Furosemide 40 Mg Tablet) 40 mg PO DAILY [facility] Doxycycline Hyclate 100 mg/ (Sodium Chloride) 100 mls @ 100 mls/hr IV Q12H [facility] Last Infusion: 06/22/24 00:58 Dose: Infused Documented By: Admin: 06/21/24 21:42 Dose: 100 mls/hr Documented By: Infusion: 06/21/24 10:30 Dose: Infused Documented By: Admin: 06/21/24 09:15 Dose: 100 mls/hr Documented By: Infusion: 06/20/24 23:10 Dose: Infused Documented By: Admin: 06/20/24 21:32 Dose: 100 mls/hr Documented By: Infusion: 06/20/24 11:59 Dose: Infused Documented By: Admin: 06/20/24 10:35 Dose: 100 mls/hr Documented By: Infusion: 06/19/24 23:50 Dose: Infused Documented By: Admin: 06/19/24 21:45 Dose: 100 mls/hr Documented By: JT Ceftriaxone Sodium 1,000 mg/ (Sodium Chloride) 100 mls @ 200 mls/hr IV Q24H [facility] Last Infusion: 06/21/24 14:30 Dose: Infused Documented By: Admin: 06/21/24 13:28 Dose: 200 mls/hr Documented By: Infusion: 06/20/24 14:02 Dose: Infused Documented By: Admin: 06/20/24 13:32 Dose: 200 mls/hr Documented By: MS Naloxone HCl (Naloxone 0.4 Mg/Ml Vial) 0.2 mg IV Q2MIN PRN PRN Reason: Opiate Reversal Prednisone (Prednisone 20 Mg Tablet) 40 mg PO DAILY [facility] Last Admin: 06/21/24 09:16 Dose: 40 mg Documented By: Admin: 06/20/24 14:47 Dose: 40 mg Documented By: MS Sodium Chloride (Sodium Chloride 0.9% Flush) 10 ml IV PRN PRN PRN Reason: Flush Sodium Chloride (Sodium Chloride 0.9% Flush) 10 ml IV BID [facility] Last Admin: 06/21/24 21:42 Dose: 10 ml Documented By: SMS Discontinued Medications Albuterol/Ipratropium (Albuterol/Ipratropium 3 Ml Ampul) 3 ml INH NOW ONE Stop: 06/19/24 09:29 Last Admin: 06/19/24 09:34 Dose: 3 ml Documented By: DS Furosemide (Furosemide 40 Mg/4 Ml Vial) 40 mg IV NOW ONE Stop: 06/19/24 12:46 Last Admin: 06/19/24 12:56 Dose: 40 mg Documented By: MS Furosemide (Furosemide 20 Mg/2 Ml Vial) 20 mg IV BID [facility] Last Admin: 06/21/24 09:16 Dose: 20 mg Documented By: Admin: 06/20/24 21:32 Dose: 20 mg Documented By: VICKIE Ceftriaxone Sodium 2,000 mg/ (Sodium Chloride) 100 mls @ 200 mls/hr IV NOW ONE Stop: 06/19/24 10:05 Last Infusion: 06/19/24 11:04 Dose: Infused Documented By: Admin: 06/19/24 10:29 Dose: 200 mls/hr Documented By: ROGER Doxycycline Hyclate 100 mg/ (Sodium Chloride) 100 mls @ 100 mls/hr IV NOW ONE Stop: 06/19/24 10:05 Last Infusion: 06/19/24 12:10 Dose: Infused Documented By: Infusion: 06/19/24 11:47 Dose: 100 mls/hr Documented By: Admin: 06/19/24 11:05 Dose: 100 mls/hr Documented By: ROGER Ceftriaxone Sodium 1,000 mg/ (Sodium Chloride) 100 mls @ 200 mls/hr IV Q24H NILAM Last Admin: 06/20/24 11:59 Dose: Not Given Documented By: Methylprednisolone (Methylprednisolone 125 Mg/2 Ml Vial) 125 mg IV NOW ONE Stop: 06/19/24 12:45 Last Admin: 06/19/24 12:56 Dose: 125 mg Documented By: Ondansetron HCl (Ondansetron 4 Mg/2 Ml Inj) 4 mg IV Q8HR PRN PRN Reason: Nausea And Vomiting Vital Signs Vital signs: Vital Signs - 8 hr 06/19/24 09:10 06/19/24 09:22 06/19/24 09:30 Temperature 99.8 F H Pulse Rate 92 H 94 H 92 H Respiratory Rate 30 H 32 H 29 H Blood Pressure 119/56 L Pulse Oximetry 77 L 93 93 Oxygen Delivery Method Nasal Cannula Nasal Cannula Nasal Cannula Oxygen Flow Rate 3 4 4 06/19/24 09:30 06/19/24 09:35 06/19/24 10:00 Temperature Pulse Rate 93 H 91 H Respiratory Rate 18 28 H Blood Pressure 123/56 L Pulse Oximetry 94 92 Oxygen Delivery Method Nasal Cannula Nasal Cannula Oxygen Flow Rate 3.5 4 06/19/24 10:00 06/19/24 10:30 06/19/24 10:30 Temperature Pulse Rate 85 Respiratory Rate 15 Blood Pressure 132/60 114/58 L Pulse Oximetry 89 L Oxygen Delivery Method BiPAP Oxygen Flow Rate 06/19/24 10:41 Temperature Pulse Rate Respiratory Rate Blood Pressure Pulse Oximetry 88 L Oxygen Delivery Method BiPAP Oxygen Flow Rate MDM - SOB/Dyspnea Lab Data 06/22/24 03:50 03/03/25 03:50 Labs: Lab Results 06/19/24 06/19/24 06/19/24 Range/Units 08:40 09:25 09:25 WBC 23.5 H (4.5-11.0) X10^3/uL RBC 4.05 (4.0-5.2) X10^6/uL Hgb 13.3 (12.0-16.0) g/dL Hct 41.1 (36-46) % MCV 101.4 H (80-100) fL MCH 32.8 (26-34) PG MCHC 32.4 (30-36) % RDW 14.5 (11.6-14.8) % Plt Count 207 (150-400) X10^3/uL Neut % (Auto) 93.5 H (50-75) % Lymph % (Auto) 1.5 L (25-40) % [place] % (Auto) 4.8 (3-14) % Eos % (Auto) 0.0 L (2-4) % Baso % (Auto) 0.2 (0-2) % Neut # (Auto) 82923 H (5624-0068) /uL Lymph # (Auto) 400 L (8812-7622) /uL [place] # (Auto) 1100 H (0-900) /uL Eos # (Auto) 0 (0-450) /uL Baso # (Auto) 100 (0-100) /uL PT 11.5 (9.4-12.5) SECONDS INR 1.0 (0.9-1.3) VBG pH (7.33-7.43) VBG pCO2 (45-50) mmHg VBG pO2 (35-45) mmHg VBG HCO3 (24-28) mmol/L VBG Total CO2 (24-29) mmol/L VBG O2 Saturation (70-75) % VBG Base Excess (0-4) mmol/L FiO2 % % Sodium 137 (137-145) mmol/L Potassium 3.7 (3.4-5.1) mmol/L Chloride 94 L (98-107) mmol/L Carbon Dioxide 34 H (22-32) mmol/L BUN 27 H (7-17) mg/dL Creatinine 0.82 (0.52-1.04) mg/dL Estimated GFR > 60 (>60) mL/min BUN/Creatinine Ratio 32.9 H (6-22) Glucose 153 H (80-110) mg/dL Lactate 1.2 (0.7-2.1) mmol/L Calcium 8.2 L (8.4-10.2) mg/dL Total Bilirubin 0.5 (0.2-1.3) mg/dL AST 28 (14-36) IU/L ALT 19 (<35) IU/L Alkaline Phosphatase 106 (38-126) U/L Troponin I 0.025 (0.01-0.034) ng/mL NT-Pro-B Natriuret Pep 4000 H (<450) pg/mL Total Protein 7.5 (6.3-8.2) g/dL Albumin 3.9 (3.5-5.0) g/dL Globulin 3.6 (1.7-4.1) g/dL Albumin/Globulin Ratio 1.1 (1.0-2.8) Procalcitonin 0.249 (<0.5) ng/mL Chlamy pneumoniae PCR Not detected (Not Detect) Adenovirus (PCR) Not detected (Not Detect) B. pertussis DNA (PCR) Not detected (Not Detect) B.parapertussis DNA PCR Not detected (Not Detecte) Coronavirus OC43 (PCR) Not detected (Not Detect) Coronavirus HKU1 (PCR) Not detected (Not Detect) Coronavirus 229E (PCR) Not detected (Not Detect) SARS-CoV-2 (PCR) Negative Not detected (Negative) Coronavirus NL63 (PCR) Not detected (Not Detect) Human Metapneumovir PCR Not detected (Not Detect) Influenza A (RT-PCR) Flu a negative (NEGATIVE) Influenza Type A (PCR) Not detected (Not Detect) Influenza B (RT-PCR) Flu b negative (NEGATIVE) Influenza Type B (PCR) Not detected (Not Detect) M. pneumoniae (PCR) Not detected (Not Detect) Parainfluenza 1 (PCR) Not detected (Not Detect) Parainfluenza 2 (PCR) Not detected (Not Detect) Parainfluenza 3 (PCR) Not detected (Not Detect) Parainfluenza 4 (PCR) Not detected (Not Detect) RSV (PCR) Negative (Negative) Entero/Rhino (PCR) (Not Detect) 06/19/24 06/19/24 06/19/24 Range/Units 09:25 09:45 11:18 WBC (4.5-11.0) X10^3/uL RBC (4.0-5.2) X10^6/uL Hgb (12.0-16.0) g/dL Hct (36-46) % MCV (80-100) fL MCH (26-34) PG MCHC (30-36) % RDW (11.6-14.8) % Plt Count (150-400) X10^3/uL Neut % (Auto) (50-75) % Lymph % (Auto) (25-40) % [place] % (Auto) (3-14) % Eos % (Auto) (2-4) % Baso % (Auto) (0-2) % Neut # (Auto) (9171-6718) /uL Lymph # (Auto) (2985-9680) /uL [place] # (Auto) (0-900) /uL Eos # (Auto) (0-450) /uL Baso # (Auto) (0-100) /uL PT (9.4-12.5) SECONDS INR (0.9-1.3) VBG pH 7.29 L 7.24 L (7.33-7.43) VBG pCO2 70.5 H > 50.0 H (45-50) mmHg VBG pO2 68 H 66 H (35-45) mmHg VBG HCO3 34 H 43 H (24-28) mmol/L VBG Total CO2 34 H 43 H (24-29) mmol/L VBG O2 Saturation 90 H 87 H (70-75) % VBG Base Excess 4.8 H 10.6 H (0-4) mmol/L FiO2 % 45.0 % 50.0 % % Sodium (137-145) mmol/L Potassium (3.4-5.1) mmol/L Chloride (98-107) mmol/L Carbon Dioxide (22-32) mmol/L BUN (7-17) mg/dL Creatinine (0.52-1.04) mg/dL Estimated GFR (>60) mL/min BUN/Creatinine Ratio (6-22) Glucose (80-110) mg/dL Lactate (0.7-2.1) mmol/L Calcium (8.4-10.2) mg/dL Total Bilirubin (0.2-1.3) mg/dL AST (14-36) IU/L ALT (<35) IU/L Alkaline Phosphatase (38-126) U/L Troponin I (0.01-0.034) ng/mL NT-Pro-B Natriuret Pep (<450) pg/mL Total Protein (6.3-8.2) g/dL Albumin (3.5-5.0) g/dL Globulin (1.7-4.1) g/dL Albumin/Globulin Ratio (1.0-2.8) Procalcitonin (<0.5) ng/mL Chlamy pneumoniae PCR (Not Detect) Adenovirus (PCR) (Not Detect) B. pertussis DNA (PCR) (Not Detect) B.parapertussis DNA PCR (Not Detecte) Coronavirus OC43 (PCR) (Not Detect) Coronavirus HKU1 (PCR) (Not Detect) Coronavirus 229E (PCR) (Not Detect) SARS-CoV-2 (PCR) (Negative) Coronavirus NL63 (PCR) (Not Detect) Human Metapneumovir PCR (Not Detect) Influenza A (RT-PCR) (NEGATIVE) Influenza Type A (PCR) (Not Detect) Influenza B (RT-PCR) (NEGATIVE) Influenza Type B (PCR) (Not Detect) M. pneumoniae (PCR) (Not Detect) Parainfluenza 1 (PCR) (Not Detect) Parainfluenza 2 (PCR) (Not Detect) Parainfluenza 3 (PCR) (Not Detect) Parainfluenza 4 (PCR) (Not Detect) RSV (PCR) Not detected (Negative) Entero/Rhino (PCR) Not detected (Not Detect) Imaging Data Chest x-ray: Radiologist's Impression: [address] [address] XRay Report Signed Patient: Amelia Mason MR#: [id number] : 1950 Acct:[id number] Age/Sex: 74 / F Date of Service: 06/19/24 Loc: ED Accession Number: [id number] Procedure: XR chest 1V Ordering Provider: Roberto Bro MD PROCEDURE: XR CHEST 1V INDICATIONS: Shortness of breath TECHNIQUE: One view of the chest was acquired. COMPARISON: [facility], CR, XR CHEST 1V, 01/19/2024, 10:29. FINDINGS: Surgical changes and devices: None. Lungs and pleura: Patchy bilateral interstitial opacities. Mediastinum: Mediastinal contours appear normal. Heart size is enlarged. Bones and chest wall: No suspicious bony lesions. Overlying soft tissues appear unremarkable. IMPRESSION: Interstitial opacities suspicious for pneumonia. Underlying edema should be considered. Dictated by: Jenn Pink M.D. on 06/19/2024 at 9:54 Approved by: Jenn Pink M.D. on 06/19/2024 at 9:55 [facility] Narrative Medical decision making narrative: Patient here with daughter for dizziness and shortness of breath. Patient does have CHF and COPD. Admitted here in January 2024 for CHF exacerbation. She has not been taking her home medications and diuretics because not feeling well. She is on 3 L nasal cannula however is not continuous. O2 tubing on arrival was kinked and possibly patient was not getting enough oxygen. We are currently on 3 L nasal cannula at 96%. Patient is hard of hearing. Daughter does not think she has been retaining fluid as much she did last year. Daughter and grandson both have the flu After history and exam, CBC CMP BNP troponin respiratory panel, respiratory consult, chest x-ray procalcitonin lactic acid blood culture, admit, likely on BiPAP, DuoNeb, doxycycline Rocephin [facility] Medical records reviewed: January 2024 admission Differential considered: Includes but not limited to pneumonia bronchitis CHF exacerbation Lab Test results independently reviewed as above. Pertinent findings: WBC 74164, VBG pH 7.29 pCO2 70.5 PO2 68 sodium 137 potassium 3.7 BUN 27 creatinine 0.82 lactic acid 1.2 BNP 4000 troponin 0.025 Independently reviewed EKG sinus rhythm rate 92 prolonged QT Imaging studies independently reviewed: Chest x-ray suspicious for pneumonia Consultations: 11:00 a.m.. Spoke with hospitalist, Dr. Araiza, would like full respiratory panel. Repeat VBG and if improving then try removing BiPAP and may not need ICU bed. Treatments: DuoNeb Rocephin doxycycline, BiPAP Re-evaluations: 10:10 a.m.. BiPAP is getting ready to start. However patient is sitting comfortably at this time. 10:44 a.m.. Patient tolerating BiPAP very well. Will need ICU admission. Daughter agrees for admission. Updated her results being treated for pneumonia Discussion: Appropriate for admission. Patient will require diuresis and IV antibiotics for CHF/COPD/pneumonia. Patient do much better after treatment. Diagnosis: Community-acquired pneumonia, CHF exacerbation, COPD exacerbation Critical Care Time Critical Care Time Attestation: Critical Care Time 35 minutes: Critical care time is separate from other billable procedures. This critical care time includes consultation with family and other consulting doctors, review of records, and interpretation of data from labs, EKGs, imaging, etc. Discharge Plan Departure Patient Disposition: Admitted As Inpatient Clinical Impression: Acute exacerbation of chronic obstructive pulmonary disease (COPD) Community acquired pneumonia Qualifiers: Laterality: unspecified laterality Qualified Code(s): J18.9 - Pneumonia, unspecified organism Acute exacerbation of CHF (congestive heart failure) Qualifiers: Heart failure type: unspecified Qualified Code(s): I50.9 - Heart failure, unspecified Admit Date/Time: 06/19/24 11:25 Admit Provider: Maninder Araiza
[2024-06-19 10:02] LABS: Prothrombin Time 11.5 SECONDS (9.4-12.5)
[2024-06-19 10:06] LABS: Alanine Aminotransferase 19 IU/L (<35); Albumin 3.9 g/dL (3.5-5.0); Albumin Globulin Ratio 1.1 (1.0-2.8); Alkaline Phosphatase 106 U/L (38-126); Aspartate Aminotransferase 28 IU/L (14-36); BUN Creatinine Ratio 32.9 (6-22); Bilirubin Total 0.5 mg/dL (0.2-1.3); Blood Urea Nitrogen 27 mg/dL (7-17); Calcium 8.2 mg/dL (8.4-10.2); Carbon Dioxide 34 mmol/L (22-32); Chloride 94 mmol/L (98-107); Estimated Glomerular Filt Rate > 60 mL/min (>60); Globulin 3.6 g/dL (1.7-4.1); Glucose 153 mg/dL (80-110); HEMOLYSIS 18 (0-50); Potassium 3.7 mmol/L (3.4-5.1); Sodium 137 mmol/L (137-145); Total Protein 7.5 g/dL (6.3-8.2)
[2024-06-19 10:07] LABS: Lactate (Lactic Acid) 1.2 mmol/L (0.7-2.1)
[2024-06-19 10:19] LABS: NT-proBNP (BNP-Adult 18+) 4000 pg/mL (<450); Troponin I 0.025 ng/mL (0.01-0.034)
[2024-06-19] MEDS: cefTRIAXone 2,000 MG in SODIUM CHLORIDE 0.9% 100 ML 200 MG IV (10:29)
[2024-06-19 10:31] LABS: COVID-19 CEPHEID 4-PLEX PCR Negative (Negative); Influenza A - CEPHEID Flu A NEGATIVE (NEGATIVE); Influenza B - CEPHEID Flu B NEGATIVE (NEGATIVE); Respiratory Syncytial Virus Negative (Negative)
[2024-06-19 10:54] LABS: Procalcitonin 0.249 ng/mL (<0.5)
[2024-06-19] MEDS: DOXYCYCLINE 100 MG in SODIUM CHLORIDE 0.9% 100 ML IV ×2 (11:05→21:45)
[2024-06-19 11:22] LABS: Base Excess VBG 10.6 mmol/L (0-4); HCO3 VBG 43 mmol/L (24-28); Oxygen Saturation VBG 87 % (70-75); PO2 VBG 66 mmHg (35-45); Total CO2 VBG 43 mmol/L (24-29); pH VBG 7.24 (7.33-7.43)
[2024-06-19 11:48] LABS: PCO2 VBG > 50.0 mmHg (45-50)
[2024-06-19 12:17] LABS: Adenovirus Not Detected (Not Detect); B. parapertussis Not Detected (Not Detecte); Bordetella pertussis Not Detected (Not Detect); Chlamydophila pneumoniae Not Detected (Not Detect); Coronavirus 229E Not Detected (Not Detect); Coronavirus HKU1 Not Detected (Not Detect); Coronavirus NL 63 Not Detected (Not Detect); Coronavirus OC43 Not Detected (Not Detect); Human Metapneumovirus Not Detected (Not Detect); Human Rhinovirus/Enterovirus Not Detected (Not Detect); Influenza A Not Detected (Not Detect); Influenza B Not Detected (Not Detect); Mycoplasma pneumoniae Not Detected (Not Detect); Parainfluenza Virus 1 Not Detected (Not Detect); Parainfluenza Virus 2 Not Detected (Not Detect); Parainfluenza Virus 3 Not Detected (Not Detect); Parainfluenza Virus 4 Not Detected (Not Detect); Respiratory Syncytial Virus Not Detected (Not Detect); SARS- CoV-2 Not Detected (Not Detecte)
[2024-06-19] MEDS: FUROSEMIDE 40 MG/4 ML VIAL IV (12:56)
[2024-06-19] MEDS: methylPREDNISolone 125 MG/2 ML VIAL IV (12:56)
--- NOTE | 2024-06-19 12:58 | P.HP_ITS ---
History of Present Illness History of Present Illness Date Patient Seen: 06/19/24 Time Patient Seen: 12:58 Chief complaint: O2 dropped , dizzy maybe flu Narrative: This is a 74-year-old female with PMH of COPD, CHFpEF, depression who presents with lethargy and dizzyness, along with some dyspnea for the past day. Patient has not felt well per her daughter over the past week since her flu and covid shot. She also unreliably takes her home medications including furosemide. Starting yesterday evening patient starting reporting dizzyness, which continued this morning along with continued lethargy and low O2 at home so her daughter brought her in. Daughter denies any LE edema recently, no fever, chills reported. Patient was hypoxic on room air, but required up to 4 L compared to her usual 1-2 in the ER. She was mildly hypertensive, Tmax 99.8. Labs were notable for WBC of 23.5. pH on VBG showed 7.29 with PCO2 of 70.5, per ER provider this worsened on repeat and BiPAP settings were adjusted. She was admitted to the ICU. Daughter reports patient is full code. [facility] Medical History Do not resuscitate Chronic hypoxemic respiratory failure Chronic diastolic (congestive) heart failure History of COVID-19 (02/2022) Osteopenia Hearing loss Acne (~1964) Asthma Depression (~1973) Chicken pox (~1959) Cataracts, bilateral (~2008) Primary osteoarthritis involving multiple joints History of colonic polyps Tobacco use disorder COPD (chronic obstructive pulmonary disease) (~1988) Mixed hyperlipidemia Surgical History Hx of bilateral cataract extraction Anesthesia History of cholecystectomy (~2009) History of section Family History Father History of heart disease Mother History of heart disease Sister Overdose Grandfather History of heart disease Grandmother Alzheimer's disease Social History household members: family and children Smoking Status: Former smoker alcohol intake: former Meds Home Medications and Allergies Home Medications Medication Instructions Recorded Confirmed Type albuterol sulfate 90 mcg/actuation 2 puff inhalation Q6H PRN 06/14/22 06/19/24 Rx aerosol inhaler shortness of breath or wheezing #8.5 grams aspirin 325 mg tablet 325 mg PO Q4-6H PRN pain 09/12/22 06/19/24 History [address]ing Permit... #1 ea 01/29/24 06/19/24 Rx furosemide 40 mg tablet 40 mg PO DAILY #30 tabs 02/26/24 06/19/24 Rx Advair HFA 115 mcg-21 2 puff inhalation BID #12 grams 03/16/24 06/19/24 Rx mcg/actuation aerosol inhaler (fluticasone propion-salmeterol) Allergies Allergy/AdvReac Type Severity Reaction Status Date / Time nickel [NICKEL] Allergy Severe Rash Verified 02/20/24 16:13 Review of Systems Review of Systems Narrative: All other systems reviewed with the patient and are negative unless otherwise stated. Exam Vital Signs (past 8 hours): - 06/19/24 09:10 06/19/24 09:22 06/19/24 09:30 Temperature 99.8 F H Pulse Rate 92 H 94 H 92 H Respiratory Rate 30 H 32 H 29 H Blood Pressure 119/56 L Pulse Oximetry 77 L 93 93 Oxygen Delivery Method Nasal Cannula Nasal Cannula Nasal Cannula Oxygen Flow Rate 3 4 4 Fraction of Inspired Oxygen 06/19/24 09:30 06/19/24 09:35 06/19/24 10:00 Temperature Pulse Rate 93 H 91 H Respiratory Rate 18 28 H Blood Pressure 123/56 L Pulse Oximetry 94 92 Oxygen Delivery Method Nasal Cannula Nasal Cannula Oxygen Flow Rate 3.5 4 Fraction of Inspired Oxygen 06/19/24 10:00 06/19/24 10:15 06/19/24 10:30 Temperature Pulse Rate 85 Respiratory Rate 15 Blood Pressure 132/60 Pulse Oximetry 89 L Oxygen Delivery Method BiPAP Oxygen Flow Rate Fraction of Inspired Oxygen 50 06/19/24 10:30 06/19/24 10:41 06/19/24 11:00 Temperature Pulse Rate 80 Respiratory Rate 17 Blood Pressure 114/58 L Pulse Oximetry 88 L 89 L Oxygen Delivery Method BiPAP Oxygen Flow Rate Fraction of Inspired Oxygen 06/19/24 11:00 06/19/24 11:28 06/19/24 11:30 Temperature Pulse Rate 76 Respiratory Rate 20 Blood Pressure 104/57 L Pulse Oximetry 88 L Oxygen Delivery Method BiPAP BiPAP Oxygen Flow Rate Fraction of Inspired Oxygen 06/19/24 11:30 06/19/24 11:54 06/19/24 11:55 Temperature Pulse Rate 73 Respiratory Rate 19 Blood Pressure 98/53 L 152/76 H Pulse Oximetry 89 L Oxygen Delivery Method Oxygen Flow Rate Fraction of Inspired Oxygen 06/19/24 12:13 06/19/24 12:14 06/19/24 12:14 Temperature Pulse Rate 91 H 89 Respiratory Rate 25 H 23 Blood Pressure 143/63 H Pulse Oximetry 91 91 Oxygen Delivery Method Oxygen Flow Rate Fraction of Inspired Oxygen Fraction of Inspired Oxygen 50 Oxygen Delivery Method BiPAP Oxygen Flow Rate 4 Narrative Exam Narrative: NAD, somnolent, with eyes open, mumbles responses Lungs are with diminished breath sounds bilaterally, poor air flow Heart is regular, no murmur gallop or rub. Abdomen is soft, non distended. Extremities are free of edema. Objective ECG Impression: severely long QtC >600. NSR, LAFB Labs 06/19/24 08:40 06/19/24 08:40 Labs: Laboratory Results - last 24 hr 06/19/24 06/19/24 06/19/24 08:40 09:25 09:25 WBC 23.5 H RBC 4.05 Hgb 13.3 Hct 41.1 MCV 101.4 H MCH 32.8 MCHC 32.4 RDW 14.5 Plt Count 207 Neut % (Auto) 93.5 H Lymph % (Auto) 1.5 L [place] % (Auto) 4.8 Eos % (Auto) 0.0 L Baso % (Auto) 0.2 Neut # (Auto) 86917 H Lymph # (Auto) 400 L [place] # (Auto) 1100 H Eos # (Auto) 0 Baso # (Auto) 100 PT 11.5 INR 1.0 VBG pH VBG pCO2 VBG pO2 VBG HCO3 VBG Total CO2 VBG O2 Saturation VBG Base Excess FiO2 % Sodium 137 Potassium 3.7 Chloride 94 L Carbon Dioxide 34 H BUN 27 H Creatinine 0.82 Estimated GFR > 60 BUN/Creatinine Ratio 32.9 H Glucose 153 H Lactate 1.2 Calcium 8.2 L Total Bilirubin 0.5 AST 28 ALT 19 Alkaline Phosphatase 106 Troponin I 0.025 NT-Pro-B Natriuret Pep 4000 H Total Protein 7.5 Albumin 3.9 Globulin 3.6 Albumin/Globulin Ratio 1.1 Procalcitonin 0.249 Chlamy pneumoniae PCR Not detected Adenovirus (PCR) Not detected B. pertussis DNA (PCR) Not detected B.parapertussis DNA PCR Not detected Coronavirus OC43 (PCR) Not detected Coronavirus HKU1 (PCR) Not detected Coronavirus 229E (PCR) Not detected SARS-CoV-2 (PCR) Negative Not detected Coronavirus NL63 (PCR) Not detected Human Metapneumovir PCR Not detected Influenza A (RT-PCR) Flu a negative Influenza Type A (PCR) Not detected Influenza B (RT-PCR) Flu b negative Influenza Type B (PCR) Not detected M. pneumoniae (PCR) Not detected Parainfluenza 1 (PCR) Not detected Parainfluenza 2 (PCR) Not detected Parainfluenza 3 (PCR) Not detected Parainfluenza 4 (PCR) Not detected RSV (PCR) Negative Entero/Rhino (PCR) 06/19/24 06/19/24 06/19/24 09:25 09:45 11:18 WBC RBC Hgb Hct MCV MCH MCHC RDW Plt Count Neut % (Auto) Lymph % (Auto) [place] % (Auto) Eos % (Auto) Baso % (Auto) Neut # (Auto) Lymph # (Auto) [place] # (Auto) Eos # (Auto) Baso # (Auto) PT INR VBG pH 7.29 L 7.24 L VBG pCO2 70.5 H > 50.0 H VBG pO2 68 H 66 H VBG HCO3 34 H 43 H VBG Total CO2 34 H 43 H VBG O2 Saturation 90 H 87 H VBG Base Excess 4.8 H 10.6 H FiO2 % 45.0 % 50.0 % Sodium Potassium Chloride Carbon Dioxide BUN Creatinine Estimated GFR BUN/Creatinine Ratio Glucose Lactate Calcium Total Bilirubin AST ALT Alkaline Phosphatase Troponin I NT-Pro-B Natriuret Pep Total Protein Albumin Globulin Albumin/Globulin Ratio Procalcitonin Chlamy pneumoniae PCR Adenovirus (PCR) B. pertussis DNA (PCR) B.parapertussis DNA PCR Coronavirus OC43 (PCR) Coronavirus HKU1 (PCR) Coronavirus 229E (PCR) SARS-CoV-2 (PCR) Coronavirus NL63 (PCR) Human Metapneumovir PCR Influenza A (RT-PCR) Influenza Type A (PCR) Influenza B (RT-PCR) Influenza Type B (PCR) M. pneumoniae (PCR) Parainfluenza 1 (PCR) Parainfluenza 2 (PCR) Parainfluenza 3 (PCR) Parainfluenza 4 (PCR) RSV (PCR) Not detected Entero/Rhino (PCR) Not detected Assessment & Plan Assessment & Plan narrative: 1. Acute on chronic hypercapnic and hypoxemic respiratory failure, POA - secondary to a combination of 2-4 noted below. Continue treatments as noted below. - If patient continues to fail BIPAP will need to be intubated. Will repeat blood gas in the next hour after admission - discussed goals of care with daughter, consistent with last admission patient is full code. - ideally if more alert continue bipap with continued blood gas checks 2. Possible sepsis with acute respiratory failure and acute metabolic encephalopathy due to Community acquired PNA, POA - Continue ceftriaxone and doxycycline, dose given in the ER. Likely more volume overload with proBNP elevation, gave 40 mg IV lasix as patient is hypertensive now. - encephalopathy probably due to hypercapnea, but possible sepsis as well - respiratory panel negative - follow up cultures. 3. Acute on chronic diastolic heart failure, POA - diurese with prn with caution given possible sepsis, no LE edema but has not been taking furosemide at home. CXR with diffuse interstitial opacities 4. Chronic obstructive pulmonary disease with exacerbation, POA 5. Prolonged QT - QtC >700. Avoid QT prolonging agents. #Hyperlipidemia. Continue routine medication. #History of tobacco use. She quit 1 week ago. Cessation encouraged. Code: Full, surrogate is patient's daughter, POA DVT: Lovenox daily I have utilized all available immediate resources to obtain, update, or review the patient's current medications. Dispo: patient admitted under inpatient status to the ICU. Unclear if will be able to discharge home or possible SNF, will have PT/OT evaluations. Additional history obtained via discussions with the ER provider and patient's daughter. These discussions contributed to the creation of the above assessment and plan. I have reviewed patient's presenting documentation, labs, and imaging personally. I spent 45 minutes providing critical care management this patient. This excludes time spent in performing separately billed procedures. Time-Based Coding :: [TOTAL MINUTES] spent with patient and on the chart (including review of chart, obtaining history, exam, reviewing outside data, placing orders, documenting exam and treatment plan, and counseling patient) on [DATE]. Quality VTE Deep Vein Thrombosis/Pulmonary Embolism Present on Admission: No
--- NOTE | 2024-06-19 13:10 | PC.ADMIT ---
[facility] [facility] Admission Note: Pt brought up from ED via gurney with RT, BiPaP, daughter and grand-daughter at bedside. Pt unable to assist with movement from gurney to bed, does not respond to verbal commands, or stimuli, placed pt back on BiPaP, monitoring equipment connected, VSS, Dr Araiza updated on pt status, at bedside, will attempt Lasix and solumedrol, Purewick in place. Oriented daughter to room and call light system. No further needs at this time, care ongoing. The patient,Amelia Mason,74 y/o, was given written information regarding hospital policies, unit procedures and contact persons. Patient's smoking status: Former smoker. Vital Signs - 8 hr 06/19/24 09:10 06/19/24 09:22 06/19/24 09:30 Temperature 99.8 F H Pulse Rate 92 H 94 H 92 H Respiratory Rate 30 H 32 H 29 H Blood Pressure 119/56 L Pulse Oximetry 77 L 93 93 Oxygen Delivery Method Nasal Cannula Nasal Cannula Nasal Cannula Oxygen Flow Rate 3 4 4 Fraction of Inspired Oxygen 06/19/24 09:30 06/19/24 09:35 06/19/24 10:00 Temperature Pulse Rate 93 H 91 H Respiratory Rate 18 28 H Blood Pressure 123/56 L Pulse Oximetry 94 92 Oxygen Delivery Method Nasal Cannula Nasal Cannula Oxygen Flow Rate 3.5 4 Fraction of Inspired Oxygen 06/19/24 10:00 06/19/24 10:15 06/19/24 10:30 Temperature Pulse Rate 85 Respiratory Rate 15 Blood Pressure 132/60 Pulse Oximetry 89 L Oxygen Delivery Method BiPAP Oxygen Flow Rate Fraction of Inspired Oxygen 50 06/19/24 10:30 06/19/24 10:41 06/19/24 11:00 Temperature Pulse Rate 80 Respiratory Rate 17 Blood Pressure 114/58 L Pulse Oximetry 88 L 89 L Oxygen Delivery Method BiPAP Oxygen Flow Rate Fraction of Inspired Oxygen 06/19/24 11:00 06/19/24 11:28 06/19/24 11:30 Temperature Pulse Rate 76 Respiratory Rate 20 Blood Pressure 104/57 L Pulse Oximetry 88 L Oxygen Delivery Method BiPAP BiPAP Oxygen Flow Rate Fraction of Inspired Oxygen 06/19/24 11:30 06/19/24 11:54 06/19/24 11:55 Temperature Pulse Rate 73 Respiratory Rate 19 Blood Pressure 98/53 L 152/76 H Pulse Oximetry 89 L Oxygen Delivery Method Oxygen Flow Rate Fraction of Inspired Oxygen 06/19/24 12:13 06/19/24 12:14 06/19/24 12:14 Temperature Pulse Rate 91 H 89 Respiratory Rate 25 H 23 Blood Pressure 143/63 H Pulse Oximetry 91 91 Oxygen Delivery Method Oxygen Flow Rate Fraction of Inspired Oxygen
[2024-06-19 14:23] LABS: Troponin I 0.017 ng/mL (0.01-0.034)
[2024-06-19 14:37] LABS: Allen Test for ABG Passed? Positive; Base Excess ABG 9.1 mmol/L (-2-3); Blood Gas Collection Site Left Radial; Delivery System BiPAP; HCO3 ABG 41 mmol/L (23-27); Oxygen Saturation ABG 90 % (95-100); PCO2 ABG 91.2 mmHg (35-45); PO2 ABG 71 mmHg (80-100); TCO2 ABG 41 mmol/L (23-27); pH ABG 7.26 (7.35-7.45)
[2024-06-19 16:09] LABS: MRSA (Nasal) PCR NOT DETECTED (Not Detect)
[2024-06-19] MEDS: BUDESONIDE 0.5 MG/2 ML NEB INH (19:34)
--- NOTE | 2024-06-19 21:55 | RT ---
pt was put back on Bipap at 2100 will do check at 0100 pt stable at this time
[2024-06-20] VITALS (60 sets, daily range): BP systolic 75–120; BP diastolic 43–62; PULSE 60–84; RESP 19–42; TEMP 30.8–36.6; O2SAT 78–97
[2024-06-20 05:02] LABS: Add Manual Diff / Slide Review NO; Basophils Absolute Auto 0 /uL (0-100); Basophils Percent Auto 0.1 % (0-2); Eosinophils Absolute Auto 0 /uL (0-450); Eosinophils Percent Auto 0.1 % (2-4); Hematocrit 37.8 % (36-46); Hemoglobin 12.5 g/dL (12.0-16.0); Lymphocytes Absolute Auto 400 /uL (1100-4500); Lymphocytes Percent Auto 2.5 % (25-40); Mean Corpuscular HGB Conc 32.9 % (30-36); Mean Corpuscular Hemoglobin 33.4 PG (26-34); Mean Corpuscular Volume 101.6 fL (80-100); Monocytes Absolute Auto 500 /uL (0-900); Neutrophils Absolute Auto 17000 /uL (1500-7000); Neutrophils Percent Auto 94.3 % (50-75); Platelet Count 189 X10^3/uL (150-400); Red Blood Cell Count 3.72 X10^6/uL (4.0-5.2); Red Cell Distribution Width 14.2 % (11.6-14.8)
[2024-06-20 05:13] LABS: Alanine Aminotransferase 17 IU/L (<35); Albumin 3.5 g/dL (3.5-5.0); Alkaline Phosphatase 98 U/L (38-126); Aspartate Aminotransferase 25 IU/L (14-36); BUN Creatinine Ratio 31.4 (6-22); Bilirubin Total 0.4 mg/dL (0.2-1.3); Blood Urea Nitrogen 33 mg/dL (7-17); Calcium 7.6 mg/dL (8.4-10.2); Chloride 91 mmol/L (98-107); Estimated Glomerular Filt Rate 55 mL/min (>60); Globulin 3.4 g/dL (1.7-4.1); Glucose 119 mg/dL (80-110); HEMOLYSIS < 15 (0-50); Magnesium 2.4 mg/dL (1.6-2.3); Sodium 135 mmol/L (137-145); Total Protein 6.9 g/dL (6.3-8.2)
[2024-06-20 05:19] LABS: Carbon Dioxide 37 mmol/L (22-32)
[2024-06-20] MEDS: ALBUTEROL/IPRATROPIUM 3 ML AMPUL INH ×3 (08:40→20:57)
[2024-06-20] MEDS: BUDESONIDE 0.5 MG/2 ML NEB INH (08:40)
[2024-06-20 08:46] LABS: Allen Test for ABG Passed? Positive; Base Excess ABG 11.2 mmol/L (-2-3); Blood Gas Collection Site Left Radial; Delivery System BiPAP; HCO3 ABG 43 mmol/L (23-27); Oxygen Saturation ABG 92 % (95-100); PCO2 ABG 93.5 mmHg (35-45); PO2 ABG 77 mmHg (80-100); TCO2 ABG 43 mmol/L (23-27); pH ABG 7.27 (7.35-7.45)
[2024-06-20] MEDS: ENOXAPARIN 40 MG/0.4 ML SYRINGE SUBCUT (09:09)
[2024-06-20] MEDS: DOXYCYCLINE 100 MG in SODIUM CHLORIDE 0.9% 100 ML IV ×2 (10:35→21:32)
[2024-06-20 10:48] LABS: MRSA (Nasal) PCR NOT DETECTED (Not Detect)
[2024-06-20] MEDS: cefTRIAXone 1,000 MG in SODIUM CHLORIDE 0.9% 100 ML 200 MG IV (13:32)
--- NOTE | 2024-06-20 14:39 | PM.PN.1 ---
Subjective Subjective Interval history: This is a 74 year old female admitted to the ICU with acute on chronic hypercapnic and hypoxemic respiratory failure likely due to a combination of CHF exacerbation, COPD exacerbation, and pneumonia. She is more alert today after bipap overnight, though her ABG is not significantly changed. Based on previous admissions, she has previously been compensated with normal pH and a PCO2 of >90, so likely with severe chronic hypercapnea. WBC is improved today, patient feels well she states. Exam Vital Signs (past 8 hours): - 06/20/24 07:00 06/20/24 07:00 06/20/24 07:15 Pulse Rate 61 Respiratory Rate 19 Blood Pressure 88/50 L 88/48 L Pulse Oximetry 95 Oxygen Delivery Method Oxygen Flow Rate 06/20/24 07:15 06/20/24 07:21 06/20/24 07:21 Pulse Rate 60 60 Respiratory Rate 20 20 Blood Pressure 89/49 L Pulse Oximetry 96 96 Oxygen Delivery Method Oxygen Flow Rate 06/20/24 07:30 06/20/24 08:00 06/20/24 08:00 Pulse Rate 61 60 Respiratory Rate 20 21 Blood Pressure 89/50 L Pulse Oximetry 94 96 Oxygen Delivery Method Oxygen Flow Rate 06/20/24 08:30 06/20/24 08:40 06/20/24 09:00 Pulse Rate 60 77 Respiratory Rate 20 20 Blood Pressure Pulse Oximetry 96 89 L Oxygen Delivery Method Nasal Cannula Nasal Cannula BiPAP Oxygen Flow Rate 3 06/20/24 09:00 06/20/24 09:00 06/20/24 09:01 Pulse Rate 71 72 Respiratory Rate 34 H 27 H Blood Pressure Pulse Oximetry 89 L 93 92 Oxygen Delivery Method Nasal Cannula Oxygen Flow Rate 4 06/20/24 09:01 06/20/24 09:30 06/20/24 10:00 Pulse Rate 72 68 Respiratory Rate 38 H 26 H Blood Pressure 108/53 L Pulse Oximetry 89 L 86 L Oxygen Delivery Method Oxygen Flow Rate 06/20/24 10:00 06/20/24 10:20 06/20/24 10:20 Pulse Rate 67 Respiratory Rate 29 H Blood Pressure 75/43 L 101/51 L Pulse Oximetry 92 Oxygen Delivery Method Oxygen Flow Rate 06/20/24 10:30 06/20/24 11:00 06/20/24 11:01 Pulse Rate 71 69 Respiratory Rate 28 H 29 H Blood Pressure 120/56 L Pulse Oximetry 91 91 Oxygen Delivery Method Oxygen Flow Rate 06/20/24 11:01 06/20/24 11:30 06/20/24 12:00 Pulse Rate 66 65 63 Respiratory Rate 31 H 28 H 33 H Blood Pressure Pulse Oximetry 92 94 94 Oxygen Delivery Method Oxygen Flow Rate 06/20/24 12:01 06/20/24 12:01 06/20/24 12:30 Pulse Rate 66 66 Respiratory Rate 31 H 30 H Blood Pressure 88/53 L Pulse Oximetry 94 94 Oxygen Delivery Method Oxygen Flow Rate 06/20/24 13:00 06/20/24 13:00 06/20/24 13:00 Pulse Rate 68 Respiratory Rate 26 H Blood Pressure 110/53 L Pulse Oximetry 88 L 95 Oxygen Delivery Method Nasal Cannula Oxygen Flow Rate 4 06/20/24 13:20 06/20/24 13:30 06/20/24 14:00 Pulse Rate 71 71 Respiratory Rate 22 31 H Blood Pressure 99/51 L Pulse Oximetry 95 95 Oxygen Delivery Method Nasal Cannula Oxygen Flow Rate 3 06/20/24 14:00 06/20/24 14:30 Pulse Rate 71 68 Respiratory Rate 33 H 29 H Blood Pressure Pulse Oximetry 90 L 88 L Oxygen Delivery Method Oxygen Flow Rate Fraction of Inspired Oxygen 45 Oxygen Delivery Method Nasal Cannula Oxygen Flow Rate 3 Narrative Exam Narrative: NAD, alert, oriented to name, hospital, situation. Lungs are with diminished breath sounds bilaterally, mild wheezing today Heart is regular, no murmur gallop or rub. Abdomen is soft, non distended. Extremities are free of edema. Objective Labs 06/20/24 04:10 06/20/24 04:10 Labs: Laboratory Results - last 24 hr 06/19/24 06/20/24 06/20/24 14:52 04:10 08:39 WBC 18.0 H RBC 3.72 L Hgb 12.5 Hct 37.8 MCV 101.6 H MCH 33.4 MCHC 32.9 RDW 14.2 Plt Count 189 Neut % (Auto) 94.3 H Lymph % (Auto) 2.5 L [place] % (Auto) 3.0 Eos % (Auto) 0.1 L Baso % (Auto) 0.1 Neut # (Auto) 51654 H Lymph # (Auto) 400 L [place] # (Auto) 500 Eos # (Auto) 0 Baso # (Auto) 0 ABG Sample Site Left radial ABG pH 7.27 L* ABG pCO2 93.5 H* ABG pO2 77 L ABG HCO3 43 H ABG Total CO2 43 H ABG O2 Saturation 92 L ABG Base Excess 11.2 H Jai Test Positive O2 Delivery Device Bipap FiO2 % 50.0 % Sodium 135 L Potassium 4.0 Chloride 91 L Carbon Dioxide 37 H BUN 33 H Creatinine 1.05 H Estimated GFR 55 L BUN/Creatinine Ratio 31.4 H Glucose 119 H Calcium 7.6 L Magnesium 2.4 H Total Bilirubin 0.4 AST 25 ALT 17 Alkaline Phosphatase 98 Total Protein 6.9 Albumin 3.5 Globulin 3.4 Albumin/Globulin Ratio 1.0 Nasal Screen MRSA (PCR) Not detected 06/20/24 09:18 WBC RBC Hgb Hct MCV MCH MCHC RDW Plt Count Neut % (Auto) Lymph % (Auto) [place] % (Auto) Eos % (Auto) Baso % (Auto) Neut # (Auto) Lymph # (Auto) [place] # (Auto) Eos # (Auto) Baso # (Auto) ABG Sample Site ABG pH ABG pCO2 ABG pO2 ABG HCO3 ABG Total CO2 ABG O2 Saturation ABG Base Excess Jai Test O2 Delivery Device FiO2 % Sodium Potassium Chloride Carbon Dioxide BUN Creatinine Estimated GFR BUN/Creatinine Ratio Glucose Calcium Magnesium Total Bilirubin AST ALT Alkaline Phosphatase Total Protein Albumin Globulin Albumin/Globulin Ratio Nasal Screen MRSA (PCR) Not detected [facility] Medical History Do not resuscitate Chronic hypoxemic respiratory failure Chronic diastolic (congestive) heart failure History of COVID-19 (02/2022) Osteopenia Hearing loss Acne (~1965) Asthma Depression (~1973) Chicken pox (~1959) Cataracts, bilateral (~2008) Primary osteoarthritis involving multiple joints History of colonic polyps Tobacco use disorder COPD (chronic obstructive pulmonary disease) (~1988) Mixed hyperlipidemia Surgical History Hx of bilateral cataract extraction Anesthesia History of cholecystectomy (~2009) History of section Family History Father History of heart disease Mother History of heart disease Sister Overdose Grandfather History of heart disease Grandmother Alzheimer's disease Social History household members: family and children Smoking Status: Former smoker alcohol intake: former Assessment & Plan Assessment & Plan narrative: 1. Acute on chronic hypercapnic and hypoxemic respiratory failure, POA, improved - secondary to a combination of 2-4 noted below. Continue treatments as noted below. - patient with acidosis and severe hypercapnea with PCO2 of 90. However her mentation is much improved today, and hypercapnea is likely chronic based on prior blood gas results. - discussed goals of care with daughter and patient today, patient is full code - will stop blood gasses, continue bipap if increased somnolence, but suspect chronic hypercapnea. Will keep in ICU in case for need for bipap. 2. Sepsis with acute respiratory failure and acute metabolic encephalopathy due to Community acquired PNA, POA - Continue ceftriaxone and doxycycline, dose given in the ER. Likely more volume overload with proBNP elevation, gave 40 mg IV lasix x1 yesterday. - encephalopathy suspect related to sepsis as ABG has not changed significantly though her mentation has. - respiratory panel negative - follow up cultures. 3. Acute on chronic diastolic heart failure, POA - diurese with prn with caution given possible sepsis, no LE edema but has not been taking furosemide at home. CXR with diffuse interstitial opacities - BP soft today, will start small amount of furosemide 20 mg IV BID starting this evening. 4. Chronic obstructive pulmonary disease with exacerbation, POA - given solumedrol 125 mg x1 06/19 - start prednisone 40 mg daily today for 4 days. 5. Prolonged QT - QtC >700. Avoid QT prolonging agents. Continue to follow on tele. #Hyperlipidemia. Continue routine medication. #History of tobacco use. She quit 1 week ago. Cessation encouraged. Code: Full, surrogate is patient's daughter, POA DVT: Lovenox daily I have utilized all available immediate resources to obtain, update, or review the patient's current medications. Dispo: patient admitted under inpatient status to the ICU. Unclear if will be able to discharge home or possible SNF, will have PT/OT evaluations. Previously daughter has wished for patient to go home. Additional history obtained via discussions with the ER provider and patient's daughter. These discussions contributed to the creation of the above assessment and plan. I have reviewed patient's presenting documentation, labs, and imaging personally. I spent 35 minutes providing critical care management this patient. This excludes time spent in performing separately billed procedures. Time-Based Coding :: [TOTAL MINUTES] spent with patient and on the chart (including review of chart, obtaining history, exam, reviewing outside data, placing orders, documenting exam and treatment plan, and counseling patient) on [DATE]. Quality VTE Deep Vein Thrombosis/Pulmonary Embolism Present on Admission: No
[2024-06-20] MEDS: predniSONE 20 MG TABLET 40 MG PO (14:47)
--- NOTE | 2024-06-20 15:02 | CM.DANOTE ---
Initial DCP Assessment Note Pt is a 74 yo female, resident of [place], admitted to ICU with acute on chronic hypercapnic and hypoxemic respiratory failure likely due to a combination of CHF exacerbation, COPD exacerbation, and pneumonia. PCP: Navdeep Moore Payer: Luiz MENSAH Reviewed chart, met w/patient and her daughter Yesy. Patient is mostly indp with all ADLs; family is available to assist with any needs that might arise. Daughter cooks, cleans, drives and assists with meds as needed. Patient has her home oxygen through [facility]. Patient politely declines services at this time. Plan: Discharge home w/family, daughter to transport. CM team will plan to follow clinical course closely in case any DC needs or concerns arise. NATASHA Black Discharge Planning/Care Management CM Discharge Assessment Start: 06/20/24 15:00 Freq: Status: Active Protocol: Document 06/20/24 15:00 JOHN (Rec: 06/20/24 15:02 JOHN [id number]) Discharge Planning Assessment Assigned Overcoil Stepper NATASHA yMers DPOA/Assigned Designee Name stephanie Santos Contact Information [phone] Advance Directives? Yes Advance Directives on File Yes History Provided By Patient,Family Member,Medical Record Prior Living Arrangements House Household Members family,children Type of transporation used prior to Relies on Others admit Independent with ADL's Yes Is patient alert and oriented? Yes Needs Assistance With Meal Prep,Home Chores / Shopping Barriers to Discharge No Comment Patient denies needs from this CM team, says things are going well at home w/daughter and family to assist as needed . Discharge Plan Home Transportation Arrangement Daughter Referrals Initiated None needed Whiteboard Updated in Patient Room with Yes name and ext. # of Overcoil Stepper Comment Encouraged patient/daughter to contact CM team if needs arise.
--- NOTE | 2024-06-20 15:20 | EKG_ITS ---
[id number] [place] [address] Test Date: 2024-06-20 Pat Name: Amelia Mason Department: [facility] Room: 228 Gender: Female Fulfillment Mail Clerk: ROBERTO : 1950 Requested By: Order Number: [id number] Reading MD: Maninder Araiza Measurements Intervals [place] Rate: 65 P: 40 IA: 178 QRS: -34 QRSD: 96 T: 36 QT: 414 QTc: 430 Interpretive Statements Normal sinus rhythm Left axis deviation Possible Anterolateral infarct , age undetermined Electronically Signed On 06-21-2024 18:57:43 PST by Maninder Araiza
[2024-06-20] MEDS: FUROSEMIDE 20 MG/2 ML VIAL IV (21:32)
[2024-06-21] VITALS (61 sets, daily range): BP systolic 103–125; BP diastolic 51–69; PULSE 65–86; RESP 11–34; TEMP 36.3–36.8; O2SAT 86–97
[2024-06-21 05:07] LABS: Alanine Aminotransferase 21 IU/L (<35); Albumin 3.3 g/dL (3.5-5.0); Alkaline Phosphatase 93 U/L (38-126); Aspartate Aminotransferase 32 IU/L (14-36); Bilirubin Total 0.2 mg/dL (0.2-1.3); Blood Urea Nitrogen 29 mg/dL (7-17); Chloride 92 mmol/L (98-107); Estimated Glomerular Filt Rate > 60 mL/min (>60); Globulin 3.4 g/dL (1.7-4.1); Glucose 133 mg/dL (80-110); HEMOLYSIS < 15 (0-50); Magnesium 2.5 mg/dL (1.6-2.3); Potassium 4.1 mmol/L (3.4-5.1); Sodium 137 mmol/L (137-145); Total Protein 6.7 g/dL (6.3-8.2)
[2024-06-21 05:11] LABS: Hematocrit 36.7 % (36-46); Hemoglobin 12.1 g/dL (12.0-16.0); Mean Corpuscular HGB Conc 32.9 % (30-36); Mean Corpuscular Hemoglobin 33.2 PG (26-34); Mean Corpuscular Volume 100.9 fL (80-100); Platelet Count 210 X10^3/uL (150-400); Red Blood Cell Count 3.64 X10^6/uL (4.0-5.2); Red Cell Distribution Width 13.7 % (11.6-14.8); White Blood Cell Count 13.3 X10^3/uL (4.5-11.0)
[2024-06-21 05:16] LABS: Add Manual Diff / Slide Review YES
[2024-06-21 05:18] LABS: Carbon Dioxide 40 mmol/L (22-32)
[2024-06-21 05:31] LABS: Macrocytosis 1+; Neutrophils Absolute Manual 12103 /uL (3000-5900); Total Cells Counted 100
[2024-06-21] MEDS: BUDESONIDE 0.5 MG/2 ML NEB INH ×2 (07:43→18:47)
[2024-06-21] MEDS: ALBUTEROL/IPRATROPIUM 3 ML AMPUL INH ×3 (07:43→18:47)
[2024-06-21] MEDS: DOXYCYCLINE 100 MG in SODIUM CHLORIDE 0.9% 100 ML IV ×2 (09:15→21:42)
[2024-06-21] MEDS: predniSONE 20 MG TABLET 40 MG PO (09:16)
[2024-06-21] MEDS: ENOXAPARIN 40 MG/0.4 ML SYRINGE SUBCUT (09:16)
[2024-06-21] MEDS: FUROSEMIDE 20 MG/2 ML VIAL IV (09:16)
--- NOTE | 2024-06-21 11:16 | PT.IIE ---
Current Diagnoses Acute and chronic respiratory failure with hypoxia (06/19/24) Surgical History (Last Reviewed 06/19/24 @ 13:10 by Maninder Araiza DO) Anesthesia History of section History of cholecystectomy (~2009) Hx of bilateral cataract extraction Medical History (Last Reviewed 06/19/24 @ 13:10 by Maninder Araiza DO) Acne (~1964) Asthma Cataracts, bilateral (~2008) Chicken pox (~1959) Chronic diastolic (congestive) heart failure Chronic hypoxemic respiratory failure COPD (chronic obstructive pulmonary disease) (~1988) Depression (~1973) Do not resuscitate Hearing loss History of colonic polyps History of COVID-19 (02/2022) Mixed hyperlipidemia Osteopenia Primary osteoarthritis involving multiple joints Tobacco use disorder Physical Therapy Inpatient Evaluation/Re-Eval M1 PT/OT-IP Prior Functional Status Start: 06/21/24 11:01 Freq: NEEDED Status: Active Protocol: Document 06/21/24 10:30 MB (Rec: 06/21/24 11:15 MB [id number]) Medical Review Prior Functional Status Medical History Reviewed Yes Communication [employer] and is awaiting getting hearind aides Mobility and Gait I, furniture and wall walking, daughter nor pt report falls Activities of Daily Living and IADL's Pt reports I Social History Household Members family,children Living Arrangements House Number of Stairs To Enter/Railing? 2 steps with left rail to enter and no steps that she does in the house Home Environment Standard Height Toilet,Tub/ Shower Home Equipment Four Wheel Walker,Straight Cane,Hand Held Shower,Grab Bars In Shower Employment Status Retired Additional Social History Comment Home and portable O2 that she does not often use M2 PT-IP Current Condition Start: 06/21/24 11:01 Freq: NEEDED Status: Active Protocol: Document 06/21/24 10:30 MB (Rec: 06/21/24 11:15 MB [id number]) Physical Therapy Current Condition Current Condition Evaluation Date 06/21/24 Treatment Diagnosis PNA, hypercapneic resp failure , COPD, CHF M3 PT-IP Subjective Start: 06/21/24 11:01 Freq: NEEDED Status: Active Protocol: Document 06/21/24 10:30 MB (Rec: 06/21/24 11:15 MB [id number]) Subjective Physical Therapy Visit Type Type Initial Evaluation Visit Start Time 10:30 Visit Stop Time 11:00 Number of FLAT FINISHER Visits 0 Physical Therapy Visit Comments Patient Comments Pt and daughter communicate needs well, pt is [employer], awaiting getting hearing aides Therapy Pain Assessment Pain When Pain Assessed At Rest Pain Present Pain Present Denied Pain M4 PT-IP Mobility and Gait Start: 06/21/24 11:01 Freq: NEEDED Status: Active Protocol: Document 06/21/24 10:30 MB (Rec: 06/21/24 11:15 MB [id number]) PT-Bed Mobility Assessment Supine to Sit Supine to Sit Standby Assistance,1 Person Assistance,Head of Bed Elevated,Bedrails Scooting Scooting to Edge of Bed Standby Assistance PT-Transfer Assessment Sit to and From Stand Sit to and from Stand Standby Assistance,1 Person Assistance,Use of Upper Extremities Equipment Transfer Assistive Device Gait Belt,Front Wheeled Walker Orthotic/Prosthetic Devices or Brace: No Transfers Transfer Destination Chair Transfer Technique Stepping Transfer Ability Level of Assist Contact Guard Assistance Comments Mobility Comments Pt reports she is whoozy when she is up, she moves before PT is ready to EOB and PT gets first BP with pt sitting EOB: BP and HR in LUE: sitting 116/ 56, 78; standing after gait 103/58, 85; reports more whooziness and 119/69. O2 sats on 3L are 79-92% throughout mobility. Gait Assessment Gait Gait Assistance Required: Contact Guard Assist Distance (Feet) 10 Able to Maintain Weight Bearing Status Yes During Gait Assistive Devices Assistive Device Gait Belt,Front Wheeled Walker Orthotic/Prosthetic Devices or Brace: No Gait Deviations General Gait Pattern Decreased Stride Length, Decreased Feet Clearance, Flexed Trunk,Wide Based Gait Factors Limiting Gait Function Factors Limiting Gait Function Decreased Activity Tolerance, Poor Balance,Poor Safety Awareness PT-Balance Assessment Sitting Balance and Reactions Static Sitting Balance Ability Normal Dynamic Sitting Balance Ability Normal Standing Balance and Reactions Static Standing Balance Ability Good Dynamic Standing Balance Ability Good Device Used RW M5 PT-IP Objective Assessments Start: 06/21/24 11:01 Freq: NEEDED Status: Active Protocol: Document 06/21/24 10:30 MB (Rec: 06/21/24 11:15 MB [id number]) Orientation Orientation/Cognition Level of Alertness Alert Language Function Ability Hard of Hearing Safety Awareness Decreased Safety Awareness Memory Description No Deficits Noted Gross Range of Motion Upper Extremity ROM Impairments Did not test Lower Extremity ROM Assessment Within Functional Limits Strength Lower Extremity Strength Assessment Within Functional Limits Coordination Assessment Assessment Coordination Comments Did not test Sensation Assessment Comments Sensation Comments Did not test Muscle Tone Muscle Tone WNL Yes M6 PT-IP Treatment Start: 06/21/24 11:01 Freq: NEEDED Status: Active Protocol: Document 06/21/24 10:30 MB (Rec: 06/21/24 11:15 MB [id number]) Physical Therapy Treatment Education Education Provided Safety Other Treatments Other Treatment Performed Extensive conversation with pt and daughter about recs: HHPT vs OPPT and daughter states they would like to follow-up with pulmonary rehab, pt and daughter report that pt drinks caffeinated coffee all day and did not take diuretic medication as dosed by Dr. Moore because pt does not like to spend money on medication, even though she does not have a financial barrier. Encouraged pt to follow all medical advice from providers, follow-up with PCP as instructed and to communicate constant caffeine consumption to Dr. Moore. Pt states that she really likes and trusts him and that she will follow- up with him and communicate better at d/c. Encouraged pt and daughter to communicate all concerns to provider in acute and to follow all acute discharge recommendations, instructions, medications. M7 PT-IP Assessment and Plan Start: 06/21/24 11:01 Freq: NEEDED Status: Active Protocol: Document 06/21/24 10:30 MB (Rec: 06/21/24 11:15 MB [id number]) PT Summary Assessment and Plan Potential Rehabilitation Potential Fair Status of Condition at Evaluation Evolving Summary Impairments Balance,Bed Mobility,Transfers ,Gait,Activity Tolerance Progress Towards Goals Slow Progress due to Activity Tolerance Assessment Summary Pt is a 74 y/o female presenting with PNA, hypercapneic respiratory failure in setting of COPD and diastolic HF. Daughter and pt state that pt does not use her O2 at home and has not taken prescribed medication fromr PCP, Dr. Moore, which was diuretic because she does not like to spend money on medication, though she does not have a financial strain. She c/o whooziness with mobility and does not wait for PT before getting to EOB and PT is only able to catch a 13 mmHg drop sit to stand with mobility today, though whooziness increases with time up on feet. O2 sats on 3L are 79-93%. Pt and daughter report that pt drinks caffeinated coffee all day and she has starbucks drink in the room. Ed pt to discuss all these issues with the acute provider and her PCP and to comply with medical recommendations given symptomology, PMH, hospitalization and decreasing BP. Pt and daughter would like to d/c home with family assist only and follow-up with pulmonary therapy. Daughter is very helpful and supportive . Goals Bed Mobility Goal Independent Transfer Goal Standby Assistance,Front Wheeled Walker,Four Wheeled Walker Gait Goal Standby Assistance,Front Wheel Walker,Four Wheel Walker Gait Distance 75 Other Goals Pt will ascend and descend 2 steps with left rail and no more than CGA to allow safe home entry. Days to Meet Goals 5 Frequency of Treatment Frequency Of Treatment Once a Day Other frequency x1 Treatment Plan Physical Therapy Treatment Plan Bed Mobility Training,Transfer Training,Gait Training, Therapeutic Exercise,Balance Retraining,Discharge Planning, Hot or Cold Pack,Neuromuscular Re-ed,Coordination Retraining ,Manual Therapy Recommendations To Nursing Amount of Assist Needed 1 Person Assist Discharge Recommendations PT Discharge Recommendations Home with 12/11 Assist Available Transportation Needs at Discharge Private Vehicle
--- NOTE | 2024-06-21 13:10 | CM.DPNOTE ---
DCP Note FOOD MOBILE DRIVER reviewed EMR Per provider in morning rounds, pt potentially could dc later today pending how she mobilizes. Per PT, rec home with assistance. FOOD MOBILE DRIVER met with pt and dtr Yesy in room. pt eager to dc. no questions/DCP/CM needs at this time. dtr will plan to take work off next few days to be at home with pt. P: home today vs tomorrow. will update TCM at dc. Plan: Discharge home w/family, daughter to transport. CM team will plan to follow clinical course closely in case any DC needs or concerns arise. NATASHA Sanches
[2024-06-21] MEDS: cefTRIAXone 1,000 MG in SODIUM CHLORIDE 0.9% 100 ML 200 MG IV (13:28)
--- NOTE | 2024-06-21 15:13 | P.PN_ITS ---
Subjective Subjective Interval history: This is a 74 year old female admitted to the ICU with acute on chronic hypercapnic and hypoxemic respiratory failure likely due to a combination of CHF exacerbation, COPD exacerbation, and pneumonia. WBC is improved today, patient feels well she states. She was slightly dizzy when standing with therapy today, but better once she was sitting up for a while. Furosemide in the evening was held. Exam Vital Signs (past 8 hours): - 06/21/24 07:30 06/21/24 07:47 06/21/24 08:00 Temperature Pulse Rate 66 76 Respiratory Rate 23 20 Blood Pressure 119/58 L Pulse Oximetry 95 92 Oxygen Delivery Method Nasal Cannula Oxygen Flow Rate 3 06/21/24 08:00 06/21/24 08:30 06/21/24 08:54 Temperature 98.2 F Pulse Rate 80 75 71 Respiratory Rate 27 H 25 H 26 H Blood Pressure 119/58 L Pulse Oximetry 90 L 90 L 91 Oxygen Delivery Method Oxygen Flow Rate 2 06/21/24 09:00 06/21/24 09:00 06/21/24 09:00 Temperature Pulse Rate 71 Respiratory Rate 28 H Blood Pressure 107/53 L Pulse Oximetry 94 Oxygen Delivery Method Nasal Cannula Oxygen Flow Rate 06/21/24 09:30 06/21/24 10:00 06/21/24 10:00 Temperature Pulse Rate 71 75 Respiratory Rate 28 H 32 H Blood Pressure 117/58 L Pulse Oximetry 93 91 Oxygen Delivery Method Oxygen Flow Rate 06/21/24 10:30 06/21/24 10:36 06/21/24 10:36 Temperature Pulse Rate 74 74 Respiratory Rate 11 L Blood Pressure 116/56 L Pulse Oximetry 93 93 Oxygen Delivery Method Oxygen Flow Rate 06/21/24 10:38 06/21/24 10:41 06/21/24 10:41 Temperature Pulse Rate 84 Respiratory Rate Blood Pressure 103/58 L Pulse Oximetry 92 90 L Oxygen Delivery Method Nasal Cannula Oxygen Flow Rate 2 06/21/24 10:42 06/21/24 10:42 06/21/24 11:00 Temperature Pulse Rate 86 Respiratory Rate Blood Pressure 119/69 110/54 L Pulse Oximetry 90 L Oxygen Delivery Method Oxygen Flow Rate 06/21/24 11:00 06/21/24 11:30 06/21/24 12:00 Temperature Pulse Rate 73 68 77 Respiratory Rate Blood Pressure Pulse Oximetry 94 93 91 Oxygen Delivery Method Oxygen Flow Rate 06/21/24 12:00 06/21/24 12:01 06/21/24 12:30 Temperature 98.1 F Pulse Rate 69 Respiratory Rate Blood Pressure 123/60 Pulse Oximetry 94 Oxygen Delivery Method Oxygen Flow Rate 06/21/24 13:00 06/21/24 13:00 06/21/24 13:00 Temperature Pulse Rate 70 Respiratory Rate Blood Pressure 107/53 L Pulse Oximetry 91 Oxygen Delivery Method Nasal Cannula Oxygen Flow Rate 06/21/24 13:11 06/21/24 13:30 06/21/24 14:00 Temperature Pulse Rate 71 Respiratory Rate 18 Blood Pressure Pulse Oximetry 90 L 91 90 L Oxygen Delivery Method Nasal Cannula Oxygen Flow Rate 2 3 06/21/24 14:00 06/21/24 14:04 06/21/24 14:30 Temperature Pulse Rate 70 75 Respiratory Rate Blood Pressure Pulse Oximetry 93 91 Oxygen Delivery Method Nasal Cannula Oxygen Flow Rate Fraction of Inspired Oxygen 45 Oxygen Delivery Method Nasal Cannula Oxygen Flow Rate 3 Narrative Exam Narrative: NAD, energetic and alert today Lungs are with diminished breath sounds bilaterally, no wheezing Heart is regular, no murmur gallop or rub. Abdomen is soft, non distended. Extremities are free of edema. Objective Labs 06/21/24 04:00 06/21/24 04:00 Labs: Laboratory Results - last 24 hr 06/21/24 04:00 WBC 13.3 H RBC 3.64 L Hgb 12.1 Hct 36.7 MCV 100.9 H MCH 33.2 MCHC 32.9 RDW 13.7 Plt Count 210 Neut % (Auto) Not Reportable Lymph % (Auto) Not Reportable [place] % (Auto) Not Reportable Eos % (Auto) Not Reportable Baso % (Auto) Not Reportable Lymph # (Auto) Not Reportable [place] # (Auto) Not Reportable Baso # (Auto) Not Reportable Total Counted 100 Seg Neutrophils % 83.0 H Band Neutrophils % 8.0 H Lymphocytes % (Manual) 4.0 L Monocytes % (Manual) 5.0 Neutrophils # (Manual) 78410 H RBC Morphology See below Macrocytosis 1+ H Sodium 137 Potassium 4.1 Chloride 92 L Carbon Dioxide 40 H* BUN 29 H Creatinine 0.88 Estimated GFR > 60 BUN/Creatinine Ratio 33.0 H Glucose 133 H Calcium 8.0 L Magnesium 2.5 H Total Bilirubin 0.2 AST 32 ALT 21 Alkaline Phosphatase 93 Total Protein 6.7 Albumin 3.3 L Globulin 3.4 Albumin/Globulin Ratio 1.0 PFSH Medical History Do not resuscitate Chronic hypoxemic respiratory failure Chronic diastolic (congestive) heart failure History of COVID-19 (02/2022) Osteopenia Hearing loss Acne (~1964) Asthma Depression (~1973) Chicken pox (~1959) Cataracts, bilateral (~2008) Primary osteoarthritis involving multiple joints History of colonic polyps Tobacco use disorder COPD (chronic obstructive pulmonary disease) (~1988) Mixed hyperlipidemia Surgical History Hx of bilateral cataract extraction Anesthesia History of cholecystectomy (~2009) History of section Family History Father History of heart disease Mother History of heart disease Sister Overdose Grandfather History of heart disease Grandmother Alzheimer's disease Social History household members: family and children Smoking Status: Former smoker alcohol intake: former Assessment & Plan Assessment & Plan narrative: 1. Acute on chronic hypercapnic and hypoxemic respiratory failure, POA, improved - secondary to a combination of 2-4 noted below. Continue treatments as noted below. - patient with acidosis and severe hypercapnea with PCO2 of 90. However her mentation is much improved today, and hypercapnea is likely chronic based on prior blood gas results. - discussed goals of care with daughter and patient today, patient is full code - will stop blood gasses, continue bipap if increased somnolence, but suspect chronic hypercapnea. Will keep in ICU in case for need for bipap. 2. Sepsis with acute respiratory failure and acute metabolic encephalopathy due to Community acquired PNA, POA - Continue ceftriaxone and doxycycline, dose given in the ER. Likely more volume overload with proBNP elevation, gave 40 mg IV lasix x1 yesterday. - encephalopathy suspect related to sepsis as ABG has not changed significantly though her mentation has. - respiratory panel negative - follow up cultures. 3. Acute on chronic diastolic heart failure, POA - diurese with prn with caution given possible sepsis, no LE edema but has not been taking furosemide at home. CXR with diffuse interstitial opacities - BP soft today, dizzy with standing. Will change back to home furosemide 40 mg daily starting tomorrow after 20 IV this morning, presuming back to euvolemia at this time. 4. Chronic obstructive pulmonary disease with exacerbation, POA - given solumedrol 125 mg x1 06/19 - started prednisone 40 mg daily for 4 days, continues today. 5. Prolonged QT - QtC >700. Improved on repeat EKG following. Avoid QT prolonging agents. Unclear etiology at this time. #Hyperlipidemia. Continue routine medication. #History of tobacco use. Code: Full, surrogate is patient's daughter, POA DVT: Lovenox daily I have utilized all available immediate resources to obtain, update, or review the patient's current medications. Dispo: patient admitted under inpatient status. Hopeful for discharge home tomorrow if BP stable, not dizzy with standing, and continued improvement in leukocytosis. Now off bipap will change to acute care from ICU status. Additional history obtained via discussions with the patient's daughter and EXERCISE INSTRUCT. These discussions contributed to the creation of the above assessment and plan. I have reviewed patient's presenting documentation, labs, and imaging personally. Time-Based Coding :: [TOTAL MINUTES] spent with patient and on the chart (including review of chart, obtaining history, exam, reviewing outside data, placing orders, documenting exam and treatment plan, and counseling patient) on [DATE]. Quality VTE Deep Vein Thrombosis/Pulmonary Embolism Present on Admission: No
[2024-06-21] MEDS: SODIUM CHLORIDE 0.9% FLUSH 10 ML IV (21:42)
[2024-06-22] VITALS (13 sets, daily range): BP systolic 114–122; BP diastolic 55–58; PULSE 60–82; RESP 18–37; TEMP 36.4–36.6; O2SAT 84–95
[2024-06-22 05:14] LABS: Hematocrit 37.2 % (36-46); Hemoglobin 12.3 g/dL (12.0-16.0); Mean Corpuscular HGB Conc 33.1 % (30-36); Mean Corpuscular Hemoglobin 33.4 PG (26-34); Mean Corpuscular Volume 100.9 fL (80-100); Platelet Count 237 X10^3/uL (150-400); Red Blood Cell Count 3.69 X10^6/uL (4.0-5.2); Red Cell Distribution Width 13.8 % (11.6-14.8); White Blood Cell Count 11.8 X10^3/uL (4.5-11.0)
[2024-06-22 05:15] LABS: Alanine Aminotransferase 23 IU/L (<35); Albumin 3.4 g/dL (3.5-5.0); Alkaline Phosphatase 84 U/L (38-126); Aspartate Aminotransferase 34 IU/L (14-36); BUN Creatinine Ratio 30.6 (6-22); Bilirubin Total 0.2 mg/dL (0.2-1.3); Blood Urea Nitrogen 26 mg/dL (7-17); Calcium 8.5 mg/dL (8.4-10.2); Chloride 91 mmol/L (98-107); Estimated Glomerular Filt Rate > 60 mL/min (>60); Globulin 3.3 g/dL (1.7-4.1); Glucose 98 mg/dL (80-110); HEMOLYSIS < 15 (0-50); Magnesium 2.5 mg/dL (1.6-2.3); Sodium 138 mmol/L (137-145); Total Protein 6.7 g/dL (6.3-8.2)
[2024-06-22 05:21] LABS: Carbon Dioxide 39 mmol/L (22-32)
[2024-06-22 05:22] LABS: Add Manual Diff / Slide Review YES
[2024-06-22 06:09] LABS: Neutrophils Absolute Manual 10030 /uL (3000-5900); RBC Morphology Normal Morphology; Total Cells Counted 100
[2024-06-22] MEDS: BUDESONIDE 0.5 MG/2 ML NEB INH (07:33)
[2024-06-22] MEDS: ALBUTEROL/IPRATROPIUM 3 ML AMPUL INH (07:33)
[2024-06-22] MEDS: FUROSEMIDE 40 MG TABLET PO (08:29)
[2024-06-22] MEDS: predniSONE 20 MG TABLET 40 MG PO (08:29)
--- NOTE | 2024-06-22 08:30 | P.DS_ITS ---
History of Present Illness History of Present Illness Date Patient Seen: 06/22/24 Time Patient Seen: 08:30 Chief complaint: O2 dropped , dizzy maybe flu Narrative: This is a 74-year-old female with PMH of COPD, CHFpEF, depression who presents with lethargy and dizzyness, along with some dyspnea for the past day. Patient has not felt well per her daughter over the past week since her flu and covid shot. She also unreliably takes her home medications including furosemide. Starting yesterday evening patient starting reporting dizzyness, which continued this morning along with continued lethargy and low O2 at home so her daughter brought her in. Daughter denies any LE edema recently, no fever, chills reported. Patient was hypoxic on room air, but required up to 4 L compared to her usual 1-2 in the ER. She was mildly hypertensive, Tmax 99.8. Labs were notable for WBC of 23.5. pH on VBG showed 7.29 with PCO2 of 70.5, per ER provider this worsened on repeat and BiPAP settings were adjusted. She was admitted to the ICU. Daughter reports patient is full code. Discharge Providers Provider Date of admission: 06/19/24 11:25 Discharge Date: 06/22/24 Primary care physician: Navdeep Moore MD Consults: 06/21/24 10:11 Consult to Physical Therapy Evaluate & Treat Comment: Physician Instructions: Evaluate and Treat Discharge provider: Maninder Araiza DO Summary Hospital Course Discharge Diagnosis: 1. Acute on chronic hypercapnic and hypoxemic respiratory failure, POA, improved 2. Sepsis with acute respiratory failure and acute metabolic encephalopathy due to Community acquired PNA, POA 3. Acute on chronic diastolic heart failure, POA 4. Chronic obstructive pulmonary disease with exacerbation, POA 5. Prolonged QT, POA, resolved #Hyperlipidemia. Continue routine medication. #History of tobacco use. Hospital Course: This is a 74-year-old female with a past medical history of diastolic heart failure, chronic hypercapnic and hypoxemic respiratory failure, and COPD who was admitted with an acute on chronic hypercapnic and hypoxemic respiratory failure initially requiring BiPAP in the ICU. She was quite lethargic and confused on presentation, with initial pCO2 in the 90s this was thought to be due to hypercapnia. She also had a marked leukocytosis and was started on antibiotic therapy. She was also started on prednisone for possible COPD exacerbation. Her mentation continued to wax and wane initially, without significant improvement in her blood gases. Despite no improvement in her blood gas, with the persistent hypercapnia, her mentation did improve and she was quite alert. Based on review of prior admission, her pCO2 likely resides in the 70-90 range chronically. Once her mentation improved she no longer required BiPAP therapy. She was continued on ceftriaxone and doxycycline for continued pneumonia, with gradual improvement in her white blood cell count and her oxygen use returned to baseline. On the day of discharge, her white blood cell count had returned to near normal and she was on her baseline oxygen use. She was back to her usual mentation level and did well with therapy evaluations. She was discharged home to complete another 3 days of prednisone and Augmentin after discharge. Additionally on admission the patient had a markedly prolonged QTC of greater than 700, resolved the following morning on EKG. The etiology for this QT prolongation is not entirely clear at this time. Time Spent with Patient Time spent: Greater than 30 minutes Exam Vital Signs (past 8 hours): - 06/22/24 01:00 06/22/24 01:30 06/22/24 02:00 Temperature Pulse Rate 70 64 60 Respiratory Rate 30 H 25 H 22 Blood Pressure Pulse Oximetry 95 86 L 87 L Oxygen Delivery Method Oxygen Flow Rate 06/22/24 02:30 06/22/24 03:00 06/22/24 03:30 Temperature Pulse Rate 64 64 72 Respiratory Rate 23 26 H 27 H Blood Pressure Pulse Oximetry 84 L 95 94 Oxygen Delivery Method Oxygen Flow Rate 06/22/24 03:48 06/22/24 03:48 06/22/24 04:00 Temperature 97.6 F Pulse Rate 82 Respiratory Rate 37 H Blood Pressure 120/58 L Pulse Oximetry 91 Oxygen Delivery Method Oxygen Flow Rate 1.5 06/22/24 04:00 06/22/24 04:00 06/22/24 04:24 Temperature Pulse Rate 69 65 Respiratory Rate 23 22 Blood Pressure Pulse Oximetry 90 L 91 93 Oxygen Delivery Method Nasal Cannula Oxygen Flow Rate 1.5 06/22/24 04:24 Temperature Pulse Rate Respiratory Rate Blood Pressure 114/55 L Pulse Oximetry Oxygen Delivery Method Oxygen Flow Rate Fraction of Inspired Oxygen 24 SaO2/FiO2 Ratio 387 Oxygen Delivery Method Nasal Cannula Oxygen Flow Rate 1.5 Narrative Exam Narrative: NAD, energetic and alert today Lungs are with diminished breath sounds bilaterally, no wheezing Heart is regular, no murmur gallop or rub. Abdomen is soft, non distended. Extremities are free of edema. Objective Labs 06/22/24 03:50 06/22/24 03:50 Labs: Laboratory Results - last 24 hr 06/22/24 03:50 WBC 11.8 H RBC 3.69 L Hgb 12.3 Hct 37.2 MCV 100.9 H MCH 33.4 MCHC 33.1 RDW 13.8 Plt Count 237 Neut % (Auto) Not Reportable Lymph % (Auto) Not Reportable [place] % (Auto) Not Reportable Eos % (Auto) Not Reportable Baso % (Auto) Not Reportable Lymph # (Auto) Not Reportable [place] # (Auto) Not Reportable Baso # (Auto) Not Reportable Total Counted 100 Seg Neutrophils % 83.0 H Band Neutrophils % 2.0 L Lymphocytes % (Manual) 8.0 L Monocytes % (Manual) 7.0 Neutrophils # (Manual) 83266 H RBC Morphology Normal morphology Sodium 138 Potassium 4.0 Chloride 91 L Carbon Dioxide 39 H BUN 26 H Creatinine 0.85 Estimated GFR > 60 BUN/Creatinine Ratio 30.6 H Glucose 98 Calcium 8.5 Magnesium 2.5 H Total Bilirubin 0.2 AST 34 ALT 23 Alkaline Phosphatase 84 Total Protein 6.7 Albumin 3.4 L Globulin 3.3 Albumin/Globulin Ratio 1.0 PFSH Medical History Do not resuscitate Chronic hypoxemic respiratory failure Chronic diastolic (congestive) heart failure History of COVID-19 (02/2022) Osteopenia Hearing loss Acne (~1964) Asthma Depression (~1973) Chicken pox (~1959) Cataracts, bilateral (~2008) Primary osteoarthritis involving multiple joints History of colonic polyps Tobacco use disorder COPD (chronic obstructive pulmonary disease) (~1988) Mixed hyperlipidemia Surgical History Hx of bilateral cataract extraction Anesthesia History of cholecystectomy (~2009) History of section Family History Father History of heart disease Mother History of heart disease Sister Overdose Grandfather History of heart disease Grandmother Alzheimer's disease Social History household members: family and children Smoking Status: Former smoker alcohol intake: former Discharge Plan Discharge Plan Patient Disposition: Home Provider Discharge Comment: You were admitted to the hospital with shortness of breath, most likely due to mild heart failure, but you were also treated for COPD exacerbation and PNA. Discharge orders & Medications Prescriptions: New amoxicillin-pot clavulanate 875-125 mg tablet 1 tab PO BID 3 Days Qty: 6 0RF prednisone 20 mg tablet 40 mg PO DAILY 3 Days Qty: 6 0RF Continued furosemide 40 mg tablet 40 mg PO DAILY Qty: 30 1RF fluticasone propion-salmeterol [Advair HFA] 115-21 mcg/actuation HFA aerosol inhaler 2 puff inhalation BID Qty: 12 0RF Rx Instructions: Brand name should be covered. albuterol sulfate 90 mcg/actuation HFA aerosol inhaler 2 puff inhalation Q6H PRN (Reason: shortness of breath or wheezing) Qty: 8.5 5RF aspirin 325 mg tablet 325 mg PO Q4-6H PRN (Reason: pain) (DME) Parking Permit... See Rx Instructions .Route .MEDSUPPLY Qty: 1 0RF Rx Instructions: I find this patient to be medically disabled and qualified for disabled parking as indicated and signed on the accompanying disabled parking application for individuals. Follow up/Referrals: Navdeep Moore MD [Primary Care Provider] - Diet/Activity/Treatments Diet: Diet as Tolerated and Low-sodium Activity: As tolerated, no restrictions Visit Report/Discharge Packet Instructions: DI for Oxygen Therapy -- Adult, How to Prevent Falls Stand Alone Forms: Patient Portal/API, Stroke Signs & Symptoms Discharge Data Primary Care Provider: Navdeep Moore V Quality VTE Deep Vein Thrombosis/Pulmonary Embolism Present on Admission: No
[2024-06-22] MEDS: SODIUM CHLORIDE 0.9% FLUSH 10 ML IV (08:32)
--- NOTE | 2024-06-22 09:33 | PC.NURSE ---
Pt and adult daughter agreeable to discharge. Education provided to pt on CHF medications, worsening symptoms, follow up appt with PCP, as well as COPD education such as home oxygen use, pulse oximetry parameters for safety, O2 use safety at home. Pt verbalized understanding, discussed ways to prevent falls with O2 tubing. IV discontinued, telemetry removed, O2 attached to home concentrator, pt wheeled via w/c to private vehicle with adult daughter and PCT at approximately 09:25.
--- NOTE | 2024-06-22 10:37 | CM.DPNOTE ---
DCP note [employer] reviewed EMR per chart, cleared to dc today. [facility] updated TCM Pt left with dtr prior to being seen by this [employer] P: dc today with OP f/u likely, no CM needs at this time, will continue to follow as needed NATASHA Sanches
== END 2024-06-22 09:25 | disposition home or self-care (01) | DRG 871 ==
LOC: ED 10:39 → AC 11:26 → ICU 11:59
PROVIDERS: Admitting Provider Internal Medicine; Emergency Provider Emergency Medicine; Family Provider Internal Medicine; PCP Internal Medicine; Referring Provider Emergency Medicine; Visit Provider Internal Medicine
DX: A41.9 Sepsis, unspecified organism (principal); G93.41 Metabolic encephalopathy; J96.21 Acute and chronic respiratory failure with hypoxia; I50.33 Acute on chronic diastolic (congestive) heart failure; J96.22 Acute and chronic respiratory failure with hypercapnia; J18.9 Pneumonia, unspecified organism; J44.1 Chronic obstructive pulmonary disease with (acute) exacerbation; J44.0 Chronic obstructive pulmonary disease with (acute) lower respiratory infection; R65.20 Severe sepsis without septic shock; R94.31 Abnormal electrocardiogram [ECG] [EKG]; E78.5 Hyperlipidemia, unspecified; Z87.891 Personal history of nicotine dependence
CPT/HCPCS: 0241U; 36415; 36600; 71045; 80053; 82805; 83605; 83735; 83880; 84145; 84484; 85007; 85025; 85610; 87040; 87633; 87797; 93005; 94640; 94660; 96365; 96367; 97161; 97535; 99285; 99291; J0696; J1650; J1940; J2919

== ENCOUNTER → 2024-07-06 11:21 | Outpatient (CLI) | payer OTHER, SELFPAY ==
[2022-11-06 06:42] VITALS: BMI 27.7
[2024-06-19 12:44] VITALS: BMI 31.2
[2024-06-20 02:10] VITALS: PULSE 84; RESP 20; O2SAT 90
== END ==
LOC: RESP 11:22
PROVIDERS: Family Provider Internal Medicine; PCP Internal Medicine; Referring Provider Internal Medicine; Visit Provider Internal Medicine
DX: J44.9 Chronic obstructive pulmonary disease, unspecified (principal); Z87.891 Personal history of nicotine dependence; Z99.81 Dependence on supplemental oxygen; R94.2 Abnormal results of pulmonary function studies
CPT/HCPCS: 94060; 94726; 94729

== ENCOUNTER 2024-07-23 12:24 | Emergency (ER) | payer OTHER, SELFPAY ==
[2024-06-19 12:44] VITALS: BMI 31.2
[2024-06-20 02:10] VITALS: PULSE 84; RESP 20; O2SAT 90
[2024-07-23 12:40] VITALS: BP 130/59; PULSE 89; RESP 22; TEMP 36.6; O2SAT 89; BMI 29.7
--- NOTE | 2024-07-23 12:49 | DI.CT.S_ITS ---
PROCEDURE: CT CERVICAL SPINE WO CON INDICATIONS: fall/hit head/NO thinners TECHNIQUE: Noncontrast 3 mm thick sections acquired from the skull base to the T4 level. Sagittal and coronal reformats were then constructed. For radiation dose reduction, the following was used: automated exposure control, adjustment of mA and/or kV according to patient size. COMPARISON: [facility], CR, XR KNEE RT 1TO2V, 07/23/2024, 13:01. [facility], CR, XR SHOULDER RT MIN 2V, 07/23/2024, 13:01. [facility], CR, XR HIP W PEL IF DONE RT 2V, 07/23/2024, 13:01. [facility], CT, CT HEAD/BRAIN WO CON, 07/23/2024, 12:58. FINDINGS: Image quality: This examination is somewhat limited by quantum mottle artifact. Bones: No fractures or dislocations. Visualized superior ribs are intact. There is moderate disc space narrowing seen at the C5-C6 and C6-C7 level. Minimal retrolisthesis can be seen at C5-C6. Milder degenerative changes are seen elsewhere. Mild levoconvex scoliotic curvature is noted. Soft tissues: Prevertebral soft tissues are normal in thickness. No paravertebral hematomas. No apical pneumothoraces. Atherosclerotic calcification is noted. IMPRESSION: No displaced fracture or traumatic subluxation. Focal lower cervical spine degenerative change. Dictated by: Андрей Singletary M.D. on 07/23/2024 at 12:20 Approved by: Андрей Singletary M.D. on 07/23/2024 at 12:21
--- NOTE | 2024-07-23 12:49 | DI.CT.S_ITS ---
PROCEDURE: CT HEAD/BRAIN WO CON INDICATIONS: fall/hit head/NO thinners TECHNIQUE: Noncontrast 4.5 mm thick angled axial sections acquired from the foramen magnum to the vertex, with coronal and sagittal reformats. For radiation dose reduction, the following was used: automated exposure control, adjustment of mA and/or kV according to patient size. COMPARISON: [facility], CT, CT CERVICAL SPINE WO CON, 07/23/2024, 12:58. FINDINGS: Image quality: Streak artifact can be seen through the skull base. CSF spaces: Basal cisterns are patent. No extra-axial fluid collections. The ventricles are symmetric in size and shape. Brain: No intracranial bleeds or masses. There is cerebral volume loss for age, with resultant ventricular and sulcal prominence. There are periventricular and deep white matter chronic small vessel ischemic changes. There is intracranial internal carotid artery atherosclerosis. Skull and face: There is a mild scalp hematoma seen involving the right forehead. No associated calvarial fracture can be seen. Calvarium and visualized facial bones appear intact, without suspicious lesions. Sinuses: Visualized sinuses and mastoids are clear. IMPRESSION: Right forehead scalp hematoma seen. No displaced calvarial fracture can be seen. No acute intracranial hemorrhage is seen. No acute intracranial process is seen. Dictated by: Андрей Singletary M.D. on 07/23/2024 at 12:18 Approved by: Андрей Singletary M.D. on 07/23/2024 at 12:19
--- NOTE | 2024-07-23 12:50 | DI.RAD.S_ITS ---
PROCEDURE: XR SHOULDER RT MIN 2V INDICATIONS: fall/pain/can't move shoulder TECHNIQUE: 2 views of the shoulder were acquired. COMPARISON: None. FINDINGS: Bones: Acute comminuted fracture involving proximal humeral shaft/surgical neck with superior migration of proximal humeral shaft in relation to humeral head and likely fracture line extension to involve greater and lesser tuberosities. Medial and inferiorly displaced lesser tuberosity fragment is seen. No other fracture or dislocation. Moderate acromioclavicular joint osteoarthritis. Soft tissues: No suspicious soft tissue calcifications. IMPRESSION: Acute comminuted, impacted and displaced fracture involving right proximal humerus with extension to involve both greater and lesser tuberosities as above. Dictated by: Jose Juan Umana M.D. on 07/23/2024 at 13:44 Approved by: Jose Juan Umana M.D. on 07/23/2024 at 13:44
--- NOTE | 2024-07-23 12:50 | DI.RAD.S_ITS ---
PROCEDURE: XR KNEE RT 1TO2V INDICATIONS: fall/pain TECHNIQUE: 2 views of the knee were acquired. COMPARISON: None. FINDINGS: Bones: No fractures or dislocations. No suspicious bony lesions. Soft tissues: No joint effusion. No suspicious soft tissue calcifications. IMPRESSION: No acute right knee fracture or dislocation. No significant joint effusion. Dictated by: Jose Juan Umana M.D. on 07/23/2024 at 13:43 Approved by: Jose Juan Umana M.D. on 07/23/2024 at 13:43
--- NOTE | 2024-07-23 12:50 | DI.RAD.S_ITS ---
PROCEDURE: XR HIP W PEL IF DONE RT 2V INDICATIONS: fall/pain TECHNIQUE: AP pelvis and lateral view of the hip acquired. COMPARISON: [facility], CR, XR HIP W PEL IF DONE RT 2V, 11/06/2022, 10:28. FINDINGS: Bones: Patient is status post right hip arthroplasty, with hardware components in expected positions. No obvious hardware loosening or failure. No acute periprosthetic fracture. Severe left hip joint osteoarthritic changes are noted significantly progressed since 2022 study. No evidence of gross avascular necrosis of femoral head. Soft tissues: No suspicious soft tissue densities. IMPRESSION: Prior right total hip arthroplasty. No gross periprosthetic fracture. No gross hardware loosening or failure. Severe left hip joint osteoarthritis progressed since 2022 study. Dictated by: Jose Juan Umana M.D. on 07/23/2024 at 13:45 Approved by: Jose Juan Umana M.D. on 07/23/2024 at 13:46
[2024-07-23 15:35] VITALS: BP 132/65; PULSE 93; O2SAT 96
[2024-07-23 16:00] VITALS: PULSE 82; O2SAT 97
[2024-07-23 16:01] VITALS: BP 108/60; PULSE 83; O2SAT 96
[2024-07-23 16:30] VITALS: BP 117/58; PULSE 78; O2SAT 95
--- NOTE | 2024-07-23 16:31 | ED_ITS ---
HPI - Fall General Chief Complaint: Fall Stated Complaint: sent from [facility], fell this morning, bump on head Time Seen by Provider: 07/23/24 16:31 Source: patient Mode of arrival: Wheelchair History of Present Illness HPI Narrative: Patient 74-year-old female history of COPD, on chronic home O2, CHF depression presenting to day ground level fall. She was admitted in June with pneumonia and since then sometimes falls. Today she fell around 5:00 a.m. mostly onto her right shoulder. Denies head injury or loss of consciousness. Her daughter made her come in and get evaluated. She really has no other complaints. Took ibuprofen prior to my evaluation but full complaining of pretty severe right shoulder pain Related Data Home Medications Medication Instructions Recorded Confirmed aspirin 325 mg tablet 325 mg PO Q4-6H PRN pain 09/12/22 06/30/24 calcium PO 06/23/24 06/30/24 ferrous sulfate 325 mg (65 mg 325 mg PO DAILY 06/23/24 06/30/24 iron) tablet (Feosol) multivitamin 1 tab PO DAILY 06/23/24 06/30/24 omega 4-cqi-qjx-fish oil 1,000 mg 1 cap PO DAILY 06/23/24 06/30/24 (120 mg-180 mg) capsule (Fish Oil) Previous Rx's Medication Instructions Recorded albuterol sulfate 90 mcg/actuation 2 puff inhalation Q6H PRN 06/14/22 aerosol inhaler shortness of breath or wheezing #8.5 grams Parking Permit... #1 ea 01/29/24 Advair HFA 115 mcg-21 2 puff inhalation BID #12 grams 03/16/24 mcg/actuation aerosol inhaler (fluticasone propion-salmeterol) furosemide 40 mg tablet 40 mg PO DAILY #30 tabs 07/06/24 hydrocodone 5 mg-acetaminophen 325 1 tab PO Q6H PRN pain #20 tabs 07/23/24 mg tablet Allergies Allergy/AdvReac Type Severity Reaction Status Date / Time nickel [NICKEL] Allergy Severe Rash Verified 06/30/24 09:26 Patient History Medical History Do not resuscitate Chronic hypoxemic respiratory failure Chronic diastolic (congestive) heart failure History of COVID-19 (02/2022) Osteopenia Hearing loss Acne (~1965) Asthma Depression (~1973) Chicken pox (~1959) Cataracts, bilateral (~2008) Primary osteoarthritis involving multiple joints History of colonic polyps Tobacco use disorder COPD (chronic obstructive pulmonary disease) (~1988) Mixed hyperlipidemia Surgical History Hx of bilateral cataract extraction Anesthesia History of cholecystectomy (~2009) History of section Family History Father History of heart disease Mother History of heart disease Sister Overdose Grandfather History of heart disease Grandmother Alzheimer's disease Social History household members: family and children Smoking Status: Former smoker alcohol intake: former Smoking Status: Former smoker Exam Initial Vital Signs Initial Vital Signs: Vital Signs Temperature 97.9 F 07/23/24 12:40 Pulse Rate 89 07/23/24 12:40 Respiratory Rate 22 07/23/24 12:40 Blood Pressure 130/59 L 07/23/24 12:40 Pulse Oximetry 89 L 07/23/24 12:40 Oxygen Delivery Method Nasal Cannula 07/23/24 12:40 Oxygen Flow Rate 2 07/23/24 12:40 GENERAL: Alert chronically ill 74-year-old female HEENT: Head atraumatic,EOMI, pupils reactive, face symmetric, moist mucous membranes CARDIOVASCULAR: Regular rate and rhythm without murmurs, rubs or gallops. RESPIRATORY: Mild wheezing bilaterally without respiratory distress ABDOMEN: Soft, nontender. Normoactive bowel sounds all 4 quadrants. No guarding or rebound. EXTREMITIES: Normal range of motion, no clubbing or edema. Neurovascularly intact Right upper extremity sensation deltoid is intact contusion noted clavicle have a step-off elbow nontender good pronation supination flexion distal radial pulse intact NEUROLOGICAL: Alert and oriented x4.Normal gait and speech. Cranial nerves II through XII grossly intact. SKIN: Warm, dry, no laceration, no petechiae, no rashes or lesions. Course Orders Ordered: ED Orders 07/23/24 12:49 CT cervical spine wo con Stat CT head/brain wo con Stat 07/23/24 12:50 XR hip w pel if done RT 2V Stat XR knee RT 1to2V Stat XR shoulder RT min 2V Stat Discontinued Medications Hydrocodone Bitart/Acetaminophen (Hydrocodone/Acet 5/325 Tablet) 1 tab PO NOW ONE Stop: 07/23/24 16:47 Vital Signs Vital signs: Vital Signs - 8 hr 07/23/24 12:40 07/23/24 15:35 07/23/24 15:35 Temperature 97.9 F Pulse Rate 89 93 H Respiratory Rate 22 Blood Pressure 130/59 L 132/65 Pulse Oximetry 89 L 96 Oxygen Delivery Method Nasal Cannula Oxygen Flow Rate 2 07/23/24 16:00 07/23/24 16:01 07/23/24 16:01 Temperature Pulse Rate 82 83 Respiratory Rate Blood Pressure 108/60 Pulse Oximetry 97 96 Oxygen Delivery Method Oxygen Flow Rate 07/23/24 16:30 07/23/24 16:30 07/23/24 17:00 Temperature Pulse Rate 78 73 Respiratory Rate Blood Pressure 117/58 L Pulse Oximetry 95 95 Oxygen Delivery Method Oxygen Flow Rate 07/23/24 17:00 Temperature Pulse Rate Respiratory Rate Blood Pressure 119/56 L Pulse Oximetry Oxygen Delivery Method Oxygen Flow Rate MDM - Fall MDM Narrative Medical decision making narrative: Patient is a 74-year-old female who reports today with a ground level fall. It sounds as though it was mechanical. She was on her normal level of oxygen no difficulty breathing. She was some mild wheezes reports that is her normal. No head injury no anticoagulation medications. No LOC. Imaging reviewed does show right humeral head fracture Head CT no intracranial hemorrhage, but does show right forehead scalp hematoma CT cervical spine no fracture Right pelvis no fracture Right knee no fracture Right shoulder acute comminuted impacted and displaced fracture of right humerus She was given [place] and a sling here in the ED. instructed to follow up with Orthopedic supportive care. Discharge Plan Departure Patient Disposition: Home Clinical Impression: Fracture of head of right humerus Instructions: DI for Shoulder Fracture Activity Restrictions/Additional Instructions: *You have been diagnosed with right shoulder fracture *What to do: At this time keep arm in sling at all times. You may remove it has shower or keep it on in the shower. You may find that you need to sleep sitting up Right. Try ice or heat *Continue to take medications as directed [place] 1 tablet every 6 hours if needed for severe pain *Follow up with your primary care provider in 2-3 days or call [phone] Call [facility] orthopedics to schedule follow up appointment *Return to ER if you should have increasing pain numbness tingling weakness or any new, worsening or concerning symptoms CONTROLLED SUBSTANCE DISCHARGE (Narcotoic/benzodiazepine/Flexeril/Phenergan) 1. You have been prescribed narcotic medications, it does have acetaminophen/Tylenol/paracetamol in it, DO NOT TAKE MORE THAN 4,00mg in 24 hours of Tylenol. TRAMADOL DOES NOT CONTAIN TYLENOL 2. Please understand that we cannot provide further refills of narcotics, benzodiazepines or controlled substances through the ED and her pain management will need to be through your provider. 3. While on these medications you cannot drive or operate heavy machinery. 4. You cannot sign legal documents or perform any duties such as this. 5. As long as you're taking opiate pain medications he should also be taking a stool softener such as Colace, Dulcolax, MiraLAX or prune juice, to help avoid constipation. Prescriptions: New hydrocodone-acetaminophen 5-325 mg tablet 1 tab PO Q6H PRN (Reason: pain) Qty: 20 0RF No Action fluticasone propion-salmeterol [Advair HFA] 115-21 mcg/actuation HFA aerosol inhaler 2 puff inhalation BID Qty: 12 0RF Rx Instructions: Brand name should be covered. furosemide 40 mg tablet 40 mg PO DAILY Qty: 30 1RF albuterol sulfate 90 mcg/actuation HFA aerosol inhaler 2 puff inhalation Q6H PRN (Reason: shortness of breath or wheezing) Qty: 8.5 5RF aspirin 325 mg tablet 325 mg PO Q4-6H PRN (Reason: pain) (DME) Parking Permit... See Rx Instructions .Route .MEDSUPPLY Qty: 1 0RF Rx Instructions: I find this patient to be medically disabled and qualified for disabled parking as indicated and signed on the accompanying disabled parking application for individuals. omega 3-jcj-wsr-fish oil [Fish Oil] 1,000 (120-180) mg capsule 1 cap PO DAILY Patient Comments: Patient's daughter reports taking fish oil 1 tablet daily. ferrous sulfate [Feosol] 325 mg (65 mg iron) tablet 325 mg PO DAILY Patient Comments: Patient's daughter reports taking Iron 1 tablet daily. calcium PO Patient Comments: Patient's daughter reports Calcium is 10mg. Takes 1 tablet daily. multivitamin Tablet 1 tab PO DAILY Patient Comments: Patient's daughter reports taking 1 tablet daily of [employer] brand mature adult woman multivitamin. Referrals: [facility] [Provider Group] Navdeep Moore MD [Primary Care Provider] - Stand Alone Forms: Patient Portal/API/Survey
[2024-07-23 17:00] VITALS: BP 119/56; PULSE 73; O2SAT 95
[2024-07-23] MEDS: HYDROCODONE/ACET 5/325 TABLET 1 TAB PO (17:21)
== END 2024-07-23 17:22 | disposition home or self-care (01) ==
PROVIDERS: Emergency Provider Emergency Medicine; Family Provider Internal Medicine; PCP Internal Medicine
DX: S42.291A Other displaced fracture of upper end of right humerus, initial encounter for closed fracture (principal); M25.511 Pain in right shoulder; S09.90XA Unspecified injury of head, initial encounter; M25.551 Pain in right hip; M25.561 Pain in right knee; W18.30XA Fall on same level, unspecified, initial encounter
CPT/HCPCS: 70450; 72125; 73030; 73502; 73560; 99284

== ENCOUNTER 2024-07-26 12:28 | Emergency (ER) | payer OTHER, SELFPAY ==
[2024-06-19 12:44] VITALS: BMI 31.2
[2024-06-20 02:10] VITALS: PULSE 84; RESP 20; O2SAT 90
[2024-07-26 12:57] VITALS: BP 111/57; PULSE 72; RESP 18; TEMP 36.7; O2SAT 92; BMI 28.3
--- NOTE | 2024-07-26 13:32 | DI.CT.S_ITS ---
PROCEDURE: CT HEAD/BRAIN WO CON INDICATIONS: headache post trauma TECHNIQUE: Noncontrast 4.5 mm thick angled axial sections acquired from the foramen magnum to the vertex, with coronal and sagittal reformats. For radiation dose reduction, the following was used: automated exposure control, adjustment of mA and/or kV according to patient size. COMPARISON: [facility], CT, CT HEAD/BRAIN WO CON, 07/23/2024, 12:58. FINDINGS: Image quality: 6 CSF spaces: Basal cisterns are patent. No extra-axial fluid collections. Ventricles are normal in size and shape. Brain: No midline shift. No intracranial masses or hemorrhage. Villalba-white matter interface is normal. Skull and face: Calvarium and visualized facial bones are intact, without suspicious lesions. Sinuses: Visualized sinuses and mastoids are clear. IMPRESSION: Atrophy and chronic ischemic change without acute hemorrhage or mass effect. Approved by: Brando Leon M.D. on 07/26/2024 at 13:46
--- NOTE | 2024-07-26 16:22 | ED.HEATRA ---
HPI - Head Injury General Chief complaint: Head Injury Stated complaint: Returning; GLF t-2, New Bruising Around Eyes Time Seen by Provider: 07/26/24 13:30 Source: patient and family Mode of arrival: Family Vehicle History of Present Illness HPI Narrative: This is a 74-year-old female had a ground level fall on the with a subsequent right proximal humerus fracture. She was seen that day has a negative PET-CT and negative C-spine CT. Since the fall she has been having episodic headaches accompanied by nausea. Family also noticed that she has some increased bruising of her face. Mental status is intact she has not been vomiting. Related Data Home Medications Medication Instructions Recorded Confirmed aspirin 325 mg tablet 325 mg PO Q4-6H PRN pain 09/12/22 06/30/24 calcium PO 06/23/24 06/30/24 ferrous sulfate 325 mg (65 mg 325 mg PO DAILY 06/23/24 06/30/24 iron) tablet (Feosol) multivitamin 1 tab PO DAILY 06/23/24 06/30/24 omega 5-yji-cub-fish oil 1,000 mg 1 cap PO DAILY 06/23/24 06/30/24 (120 mg-180 mg) capsule (Fish Oil) Previous Rx's Medication Instructions Recorded albuterol sulfate 90 mcg/actuation 2 puff inhalation Q6H PRN 06/14/22 aerosol inhaler shortness of breath or wheezing #8.5 grams Parking Permit... #1 ea 01/29/24 Advair HFA 115 mcg-21 2 puff inhalation BID #12 grams 03/16/24 mcg/actuation aerosol inhaler (fluticasone propion-salmeterol) furosemide 40 mg tablet 40 mg PO DAILY #30 tabs 07/06/24 hydrocodone 5 mg-acetaminophen 325 1 tab PO Q6H PRN pain #20 tabs 07/23/24 mg tablet ondansetron 4 mg disintegrating 4 mg PO Q6H PRN nausea and 07/26/24 tablet vomiting #14 tabs Allergies Allergy/AdvReac Type Severity Reaction Status Date / Time nickel [NICKEL] Allergy Severe Rash Verified 06/30/24 09:26 Patient History Medical History Do not resuscitate Chronic hypoxemic respiratory failure Chronic diastolic (congestive) heart failure History of COVID-19 (02/2022) Osteopenia Hearing loss Acne (~1964) Asthma Depression (~1973) Chicken pox (~1959) Cataracts, bilateral (~2008) Primary osteoarthritis involving multiple joints History of colonic polyps Tobacco use disorder COPD (chronic obstructive pulmonary disease) (~1988) Mixed hyperlipidemia Surgical History Hx of bilateral cataract extraction Anesthesia History of cholecystectomy (~2009) History of section Family History Father History of heart disease Mother History of heart disease Sister Overdose Grandfather History of heart disease Grandmother Alzheimer's disease Social History household members: family and children alcohol intake: former Exam Narrative Exam Narrative: Elderly female appears to be in no distress she is alert and oriented has some orbital ecchymosis bilaterally without true raccoon eyes no hargrove sign Initial Vital Signs Initial Vital Signs: Vital Signs Temperature 98.1 F 07/26/24 12:57 Pulse Rate 72 07/26/24 12:57 Respiratory Rate 18 07/26/24 12:57 Blood Pressure 111/57 L 07/26/24 12:57 Pulse Oximetry 92 07/26/24 12:57 Oxygen Delivery Method Nasal Cannula 07/26/24 12:57 Oxygen Flow Rate 2 07/26/24 12:57 Eyes Other: Pupils are equal round and reactive extraocular movements are intact Neck Other: Nontender and supple Skin Other: Warm and dry Neuro Other: Fully oriented, fluent speech Course Orders Ordered: ED Orders 07/26/24 13:32 CT head/brain wo con Stat Vital Signs Vital signs: Vital Signs - 8 hr 07/26/24 12:57 Temperature 98.1 F Pulse Rate 72 Respiratory Rate 18 Blood Pressure 111/57 L Pulse Oximetry 92 Oxygen Delivery Method Nasal Cannula Oxygen Flow Rate 2 MDM - Head Injury Imaging Data CT scan - head: My Impression: CT head is independently reviewed, no acute findings Radiologist's Impression: Per Radiology report, no acute injury MDM Narrative Medical decision making narrative: 74-year-old female with a blow to her head 3 days [address] negative head [address] at that time presents today with headaches and facial bruising. Patient has bruising appears appropriate for the stated time of the injury. She is neurologically intact with a negative head CT. Recommended brain rest and sent a prescription for ondansetron. She will follow up with her primary care doctor tomorrow. Discharge Plan Departure Patient Disposition: Home Clinical Impression: Post-concussion headache Instructions: DI for Closed Head Injury Activity Restrictions/Additional Instructions: Emergency department evaluation today is reassuring. You can continue with acetaminophen at home as needed for pain and you can also use the pain medicine that was prescribed for her shoulder. Follow up as planned with her primary care provider. I provided a prescription for ondansetron that you can use as needed for nausea. I recommend resting as much as possible to help with your headaches. This means limiting any activity that engages the brain including reading and screen time Prescriptions: New ondansetron 4 mg tablet,disintegrating 4 mg PO Q6H PRN (Reason: nausea and vomiting) Qty: 14 0RF No Action fluticasone propion-salmeterol [Advair HFA] 115-21 mcg/actuation HFA aerosol inhaler 2 puff inhalation BID Qty: 12 0RF Rx Instructions: Brand name should be covered. furosemide 40 mg tablet 40 mg PO DAILY Qty: 30 1RF albuterol sulfate 90 mcg/actuation HFA aerosol inhaler 2 puff inhalation Q6H PRN (Reason: shortness of breath or wheezing) Qty: 8.5 5RF aspirin 325 mg tablet 325 mg PO Q4-6H PRN (Reason: pain) (DME) Parking Permit... See Rx Instructions .Route .MEDSUPPLY Qty: 1 0RF Rx Instructions: I find this patient to be medically disabled and qualified for disabled parking as indicated and signed on the accompanying disabled parking application for individuals. omega 6-ryk-ngm-fish oil [Fish Oil] 1,000 (120-180) mg capsule 1 cap PO DAILY Patient Comments: Patient's daughter reports taking fish oil 1 tablet daily. ferrous sulfate [Feosol] 325 mg (65 mg iron) tablet 325 mg PO DAILY Patient Comments: Patient's daughter reports taking Iron 1 tablet daily. calcium PO Patient Comments: Patient's daughter reports Calcium is 10mg. Takes 1 tablet daily. multivitamin Tablet 1 tab PO DAILY Patient Comments: Patient's daughter reports taking 1 tablet daily of [employer] brand mature adult woman multivitamin. hydrocodone-acetaminophen 5-325 mg tablet 1 tab PO Q6H PRN (Reason: pain) Qty: 20 0RF Referrals: Navdeep Moore MD [Primary Care Provider] - Stand Alone Forms: Patient Portal/API/Survey
[2024-07-26 16:41] VITALS: BP 120/58; PULSE 85; RESP 18; O2SAT 91
== END 2024-07-26 16:42 | disposition home or self-care (01) ==
PROVIDERS: Emergency Provider Emergency Medicine; Family Provider Internal Medicine; PCP Internal Medicine
DX: S00.12XA Contusion of left eyelid and periocular area, initial encounter (principal); S00.11XA Contusion of right eyelid and periocular area, initial encounter; G44.309 Post-traumatic headache, unspecified, not intractable; R11.0 Nausea; W18.30XA Fall on same level, unspecified, initial encounter
CPT/HCPCS: 70450; 99284

== ENCOUNTER → 2025-02-23 15:51 | Outpatient (CLI) | payer OTHER, SELFPAY ==
[2024-06-19 12:44] VITALS: BMI 31.2
[2024-06-20 02:10] VITALS: PULSE 84; RESP 20; O2SAT 90
--- NOTE | 2025-02-23 15:53 | DI.RAD.S_ITS ---
PROCEDURE: XR CHEST 2V INDICATIONS: dyspnea TECHNIQUE: 2 views of the chest were acquired. COMPARISON: [facility], CR, XR CHEST 1V, 06/19/2024, 9:40. FINDINGS: Surgical changes and devices: Cholecystectomy clips. Lungs and pleura: Strandy right lung base mixed interstitial and alveolar opacity. No significant pleural effusion. Coarse interstitial markings throughout. Mild bronchial wall thickening diffusely. Mediastinum: Borderline cardiomegaly. Normal mediastinal contour. Bones and chest wall: Healing right humeral neck fracture. Glenohumeral subluxation is probably due to positioning. Soft tissues appear normal. IMPRESSION: Right infrahilar mixed interstitial and alveolar opacity may be infectious, inflammatory, or pulmonary edema. Chronic bronchial wall and interstitial thickening can be seen in CHF or volume overload. Dictated by: Wendy Peralta M.D. on 02/24/2025 at 14:23 Approved by: Wendy Peralta M.D. on 02/24/2025 at 14:25
[2025-02-23 16:12] LABS: Hematocrit 37.1 % (36-46); Hemoglobin 12.2 g/dL (12.0-16.0); Mean Corpuscular HGB Conc 32.9 % (30-36); Mean Corpuscular Hemoglobin 34.2 PG (26-34); Mean Corpuscular Volume 104.0 fL (80-100); Platelet Count 227 X10^3/uL (150-400)
[2025-02-23 16:40] LABS: Alanine Aminotransferase 15 IU/L (<35); Albumin 3.7 g/dL (3.5-5.0); Albumin Globulin Ratio 1.3 (1.0-2.8); Alkaline Phosphatase 83 U/L (38-126); Blood Urea Nitrogen 19 mg/dL (7-17); Calcium 9.4 mg/dL (8.4-10.2); Chloride 88 mmol/L (98-107); Cholesterol 119 mg/dL (140-199); Estimated Glomerular Filt Rate > 60 mL/min (>60); Globulin 2.8 g/dL (1.7-4.1); Glucose 110 mg/dL (70-99); HDL Cholesterol 54 mg/dL (40-60); HEMOLYSIS < 15 (0-50); Potassium 3.8 mmol/L (3.4-5.1); Sodium 140 mmol/L (137-145); Total Protein 6.5 g/dL (6.3-8.2); Triglycerides 135 mg/dL (35-150)
[2025-02-23 17:11] LABS: TSH w/ Reflex to FT4 43.60 uIU/mL (0.47-4.68)
[2025-02-23 17:40] LABS: Free T4, Direct Thyroxine 0.45 ng/dL (0.78-2.19)
[2025-02-23 17:44] LABS: Carbon Dioxide 45 mmol/L (22-32)
== END ==
PROVIDERS: PCP Internal Medicine; Referring Provider Internal Medicine; Visit Provider Internal Medicine
DX: J96.11 Chronic respiratory failure with hypoxia (principal); J96.12 Chronic respiratory failure with hypercapnia; I50.32 Chronic diastolic (congestive) heart failure; E78.2 Mixed hyperlipidemia
CPT/HCPCS: 36415; 71046; 80053; 80061; 84439; 84443; 85027